=== PATIENT | male | born 1985 | race Two or more races ===

== ENCOUNTER 2016-11-14 23:48 | Inpatient (IN) | payer MEDICAID ==
[~2016-11-14] VITALS: Ht 182.9 cm; Wt 141.2 kg
[2016-11-14 04:00] VITALS: BP 117/53
[2016-11-15] VITALS (8 sets, daily range): BP systolic 100–149; BP diastolic 49–89
[2016-11-15] MEDS ORDERED: CEFTRIAXONE 2 G in IV DEXTROSE 5% 100 ML IV ONE (00:15)
[2016-11-15] MEDS ORDERED: VANCOMYCIN IV 1,000 MG in IV DEXTROSE 5% 250 ML IV ONE (00:15)
[2016-11-15] MEDS ORDERED: IV NORMAL SALINE 1000 ML BAG IV ONE (00:15)
[2016-11-15] MEDS ORDERED: DEXAMETHASONE SOD PHOSPHATE 4 MG INJ IV ONE (00:15)
--- NOTE | 2016-11-15 00:15 | NUR ---
PT WALKED INTO ER AND BEFORE HE CAN GET TO TRIAGE CHAIR,S FAINTED, HELPED TO A WHEELCHAIR AND ROOM. V/S STABLE... PT IS ALERT, ORIENTED X 4, NO RESP DISTRESS NOTED OR REPORTED UPON ASSESSMENT... MD AT BEDSIDE...
[2016-11-15] MEDS ORDERED: CEFTRIAXONE 1 G VIAL ONE (00:30)
[2016-11-15] MEDS ORDERED: DEXAMETHASONE SOD PHOSPHATE 10 MG INJ ONE (00:30)
[2016-11-15] MEDS ORDERED: AMOX-430 PO (00:32)
[2016-11-15 00:44] LABS: BASOPHILS % (AUTO) 0.2 % (0.0-2.0); EOSINOPHILS % (AUTO) 0.1 % (0.0-7.0); HEMATOCRIT 43.2 % (40-50); HEMOGLOBIN 15.3 G/DL (14.0-18.0); LYMPHOCYTES # (AUTO) 1.3 K/UL (0.8-4.8); LYMPHOCYTES % (AUTO) 9.1 % (20.5-51.5); MEAN CORPUSCULAR HEMOGLOBIN 29.8 UUG (27.0-31.0); MEAN CORPUSCULAR HGB CONC 35 g/dL (32.0-37.0); MEAN CORPUSCULAR VOLUME 84.5 FL (82.0-92.0); MONOCYTES % (AUTO) 6.7 % (0.0-11.0); NEUTROPHILS # (AUTO) 12.3 K/UL (1.8-8.9); NEUTROPHILS % (AUTO) 83.9 % (38.5-71.5); PLATELET COUNT (AUTO) 193 K/UL (150-450); RED BLOOD CELL COUNT(AUTO) 5.11 MIL/UL (4.7-6.1); RED CELL DISTRIBUTION WIDTH 12.2 % (11.5-14.5); WHITE BLOOD COUNT (AUTO) 14.6 K/UL (4.0-11.2)
[2016-11-15 00:49] LABS: ALBUMIN 3.6 g/dL (3.4-5.0); BILIRUBIN,DIRECT 0.1 mg/dL (0.0-0.2); BILIRUBIN,TOTAL 0.8 mg/dL (0.2-1.0); CALCIUM 8.7 mg/dL (8.5-10.1); CREATININE 1.2 mg/dL (0.6-1.3); POTASSIUM 3.9 mmol/L (3.5-5.1); TOTAL PROTEIN, SERUM 8.5 g/dL (6.4-8.2)
[2016-11-15 00:51] LABS: LACTIC ACID 1.3 mmol/L (0.4-2.0); TROPONIN I < 0.017 ng/mL (0.00-0.056)
[2016-11-15] MEDS ORDERED: MORPHINE SULFATE 4 MG/1 ML DISP.SYRIN IV ONE (01:00)
[2016-11-15] MEDS ORDERED: ONDANSETRON IV *ER 4 MG/2 ML VIAL IV ONE (01:00)
[2016-11-15] MEDS ORDERED: MORPHINE SULFATE 4 MG/1 ML DISP.SYRIN ONE (01:01)
[2016-11-15] MEDS ORDERED: ONDANSETRON 4 MG/2 ML VIAL ONE ×2 (01:02→02:33)
[2016-11-15] MEDS ORDERED: VANCOMYCIN IV 200 ML ONE (01:02)
--- NOTE | 2016-11-15 01:30 | NUR ---
nurse accompanied pt to radiology dept for chest x-ray, and CT of head, pt tolerated transfer... no resp distress noted or reported prior to, during or after procedure...
[2016-11-15 02:18] LABS: *BILIRUBIN,URIN NEGATIVE (NEGATIVE); *BLOOD, URINE NEGATIVE (NEGATIVE); *CLARITY,URINE CLEAR (CLEAR); *COLOR,URINE YELLOW (YELLOW); *KETONES,URINE TRACE (NEGATIVE); *PROTEIN,URINE 1+ (NEGATIVE); LEUKOCYTE ESTERASE ,URINE NEGATIVE (NEGATIVE); NITRITE, URINE NEGATIVE (NEGATIVE); UGLUCOSE NEGATIVE (NEGATIVE)
[2016-11-15 02:27] LABS: BACTERIA,URINE FEW /HPF (NONE SEEN); RBC,URINE NONE SEEN /HPF (0-3); SQUAMOUS EPITHELIAL CELL,UR FEW /HPF (NONE SEEN); WBC,URINE NONE SEEN /HPF (0-3)
[2016-11-15] MEDS ORDERED: ONDANSETRON 4 MG/2 ML VIAL IV PRN (02:30)
[2016-11-15] MEDS ORDERED: ACETAMINOPHEN 325 MG TABLET PO PRN (02:30)
[2016-11-15] MEDS ORDERED: MORPHINE SULFATE 2 MG/1 ML DISP.SYRIN IV PRN (02:30)
[2016-11-15] MEDS ORDERED: CEFTRIAXONE 2 G in IV DEXTROSE 5% 100 ML IV SCH (02:30)
[2016-11-15] MEDS ORDERED: ENOXAPARIN SODIUM 40 MG/0.4 ML DISP.SYRIN SQ SCH (02:30)
[2016-11-15] MEDS ORDERED: ACETAMINOPHEN 650 MG SUPP.RECT RC PRN (02:30)
[2016-11-15] MEDS ORDERED: Z GUARD REMEDY PASTE 57 GM TUBE TOP PRN (02:30)
[2016-11-15] MEDS ORDERED: VANCOMYCIN IV 1,500 MG in IV DEXTROSE 5% 500 ML IV SCH (02:30)
[2016-11-15] MEDS ORDERED: HYDROMORPHONE 1 MG/1 ML DISP.SYRIN ONE (02:33)
--- NOTE | 2016-11-15 02:53 | NUR ---
Received report from TERA Marin
--- NOTE | 2016-11-15 03:20 | NUR ---
Pt. admitted to MED SURG , under care of Dr. Becerril, Belongs List completed, pt is alert, oriented x 4, no resp distress noted or reported upon transfer assessment... pt transferred via gurney...
--- NOTE | 2016-11-15 03:41 | NUR ---
Received patient from ER via gurcelestino, pt is AOX3 ambulatory per pt. Accompanied by his friend. Assessment done. Lungs CTA, abd (+) bowel sounds. Pt moves upper and lower extremeties with no problem. Pt came to ER for fever, general malaise, headache. 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 No exposure with crowds as stated.Pt moves his neck with no problem.He moves his neck side to side w/ no problem. Complains of headache 02/15.Non radiating, diaphoretic
[2016-11-15] MEDS ORDERED: ENOXAPARIN SODIUM 40 MG/0.4 ML DISP.SYRIN SQ ONE (05:20)
[2016-11-15] MEDS ORDERED: DEXAMETHASONE SOD PHOSPHATE 4 MG INJ ONE (05:59)
[2016-11-15] MEDS ORDERED: ACETAMINOPHEN 325 MG TABLET ONE (05:59)
[2016-11-15] MEDS: DEXAMETHASONE SOD PHOSPHATE 4 MG INJ IV SCH ×3 (06:00→18:08)
--- NOTE | 2016-11-15 07:00 | NUR ---
Report to TERA Davis. Pt is sleeping, desats when he sleeps on his side. VS stable , HR is high 90's and low 100's.
--- NOTE | 2016-11-15 07:30 | NUR ---
RECIEVED PT LYING IN BED SOUND ASLEEP BUT AROUSABLE TO CALL. PT IS SWEATY BUT DENIES ANY DISCOMFORTS. VSS. IVF INFUSING WELL ON THE LEFT FA. TEM-98.1F. UNDERSTANDS VERY LITTLE CROATIAN. NPO.
[2016-11-15] MEDS: IV NS 1000 ML 1,000 ML IV PRN ×2 (07:38→12:10)
--- NOTE | 2016-11-15 08:30 | NUR ---
SPOKEN WITH DR NIELSEN REGARDING PT STATUS OF ADMISSION. PT CAN BE TRANSFERRED TO TELEMETRY WITH SAME ORDERS.
[2016-11-15] MEDS: PANTOPRAZOLE SODIUM 40 MG VIAL IV SCH (08:34)
[2016-11-15] MEDS: VANCOMYCIN IV 2,000 MG in IV DEXTROSE 5% 500 ML IV SCH ×2 (08:35→18:16)
--- NOTE | 2016-11-15 10:27 | NUR ---
Clinical Pharmacy Note: Vancomycin Dosing per Pharmacy Subjective: Vancomycin IV to start on this 31 yo male patient for meningitis. Patient received vancomycin 1gm IVPB x1 in ED today at 0100 Objective: BUN 12/Scr 1.2 WBC 14.6 Temperature 98.9 ht 6' wt 321 lb Assessment/Plan: Will start vancomycin 2000mg IVPB Q10hr for a predicted vancomycin steady state trough level of 16.5 mcg/ml. First dose is due today at 0900. Will draw a vancomycin trough level prior to the 4th dose of vancomycin (not ordered yet). Will monitor renal function and adjust vancomycin dose, if needed, should renal function change significantly. Will follow daily.
[2016-11-15] MEDS ORDERED: ACYCLOVIR IV SCH (11:15)
[2016-11-15] MEDS ORDERED: DEXTROSE 5% IV SCH (11:15)
[2016-11-15] MEDS ORDERED: AMPICILLIN IV 2 G in IV NORMAL SALINE 100 ML IV SCH (12:00)
--- NOTE | 2016-11-15 12:00 | NUR ---
VANCOMYCIN IVPB LATE INFUSED DUE TO PIGGYBACK UNOPENED AND FINISHED BY 1500. ENDORSED THE SITUATION TO DOMINIQUE HALEY.
[2016-11-15] MEDS: FLUCONAZOLE 400MG /NS 200ML IV 400 MG in PREMIXED 1 EACH IV SCH (12:39)
[2016-11-15] MEDS: ACYCLOVIR IV SCH ×2 (12:40→21:25)
[2016-11-15] MEDS: DEXTROSE 5% IV SCH ×2 (12:40→21:25)
[2016-11-15 14:16] LABS: HIV-1 p24 ANTIGEN NON REACTIVE (NONREACTIVE); HIV-1/2 ANTIBODY NON REACTIVE (NONREACTIVE)
--- NOTE | 2016-11-15 14:20 | NUR ---
SBAR REPORT RECEIVED FROM ANDRES/TERA. PATIENT WAS TRANSFERRED FROM CCU TO ROOM 228. UNDER MEDICAL LABORATORY SPECIALIST. FAMILY MEMBER AT BEDSIDE. NO S/S OF ACUTE DISTRESS. DENIES OF ANY PAIN.
--- NOTE | 2016-11-15 14:30 | NUR ---
TRANSFERRED TO 2ND FLOOR, PT OPTED TO WALK IONSTEAD OF A WALKER. LATEST TEM IS 97.5F. REPORT GIVEN TO DOMINIQUE HALEY.
[2016-11-15 16:02] LABS: *MONOTEST NEGATIVE (NEGATIVE)
--- NOTE | 2016-11-15 17:57 | NUR ---
Patient eating dinner. Family at bedside.Updated with plan of care. No s/s of distress noted
--- NOTE | 2016-11-15 19:30 | NUR ---
RESTING IN BED COMFORTABLY, FARSI SPEAKING. NO ACUTE DISTRESS NOTED. SINUS RHYTHM ON MONITOR. NEEDS ATTENDED. CALL LIGHT WITHIN REACH. WILL CONTINUE TO MONITOR
[2016-11-16 00:10] VITALS: BP 109/66
[2016-11-16] MEDS: DEXAMETHASONE SOD PHOSPHATE 4 MG INJ IV SCH ×4 (00:22→18:37)
[2016-11-16] MEDS ORDERED: CEFTRIAXONE 2 G in IV DEXTROSE 5% 100 ML IV SCH (00:30)
[2016-11-16] MEDS: DEXTROSE 5% IV SCH ×3 (03:48→19:48)
[2016-11-16] MEDS: ACYCLOVIR IV SCH ×3 (03:48→19:48)
[2016-11-16 04:00] VITALS: BP 108/62
[2016-11-16] MEDS: VANCOMYCIN IV 2,000 MG in IV DEXTROSE 5% 500 ML IV SCH ×3 (05:10→16:10)
--- NOTE | 2016-11-16 06:37 | NUR ---
SLEPT INTERMITTENTLY DURING THE SHIFT. NO ACUTE DISTRESS NOTED. ALL DUE MEDS GIVEN ORDERED. NEEDS ATTENDED. KEPT COMFORTABLE AT ALL TIMES. CALL LIGHT WITHIN REACH
[2016-11-16 06:47] LABS: CALCIUM 8.1 mg/dL (8.5-10.1); CREATININE 1.1 mg/dL (0.6-1.3); PHOSPHOROUS 2.6 mg/dL (2.5-4.9)
[2016-11-16 06:55] LABS: THYROID STIMULATING HORMONE 0.146 mIU/mL (0.358-3.740)
[2016-11-16 06:57] LABS: EOSINOPHILS % (AUTO) 0.2 % (0.0-7.0); HEMATOCRIT 37.3 % (40-50); HEMOGLOBIN 12.9 G/DL (14.0-18.0); LYMPHOCYTES % (AUTO) 5.7 % (20.5-51.5); MEAN CORPUSCULAR HEMOGLOBIN 29.3 UUG (27.0-31.0); MEAN CORPUSCULAR HGB CONC 35 g/dL (32.0-37.0); MEAN CORPUSCULAR VOLUME 85.1 FL (82.0-92.0); MONOCYTES # (AUTO) 0.6 K/UL (0.1-1.30); MONOCYTES % (AUTO) 3.1 % (0.0-11.0); NEUTROPHILS # (AUTO) 16.5 K/UL (1.8-8.9); PLATELET COUNT (AUTO) 189 K/UL (150-450); RED BLOOD CELL COUNT(AUTO) 4.38 MIL/UL (4.7-6.1); WHITE BLOOD COUNT (AUTO) 18.1 K/UL (4.0-11.2)
--- NOTE | 2016-11-16 07:23 | NUR ---
GLUCOSE RESULT [address] SANTAMARIA. NO NEW ORDERS AT THIS TIME
[2016-11-16] MEDS: PANTOPRAZOLE SODIUM 40 MG VIAL IV SCH (08:35)
--- NOTE | 2016-11-16 08:40 | NUR ---
USED BLUE PHONE, DENTAL AIDE MAKSIM ID# [id number], WENT OVER PT MEDICATIONS WITH PHARMACIST BERTHA AT BEDSIDE, ASSESSED PT PAIN LEVEL AND PAIN GOAL, ASKED PT IF HAD ANY QUESTION, PT JUST WANTED TO KNOW WHEN WILL BE DISCHARGED PER DENTAL AIDE PT FEELING MUCH BETTER AND WANTS TO LEAVE TODAY, EXPLAINED TO PT THAT THE DOCTOR MUST SEE THE PATIENT AND DECIDE IF PT WILL BE DISCHARGED. PT VERBALIZED UNDERSTANDING, AGREED TO TAKE MEDICATIONS, ALL SAFETY AND COMFORT MEASURES ATTENDED TO, DROPLET PRECAUTIONS MAINTAINED, CALL LIGHT IN REACH
[2016-11-16] MEDS ORDERED: ENOXAPARIN SODIUM 40 MG/0.4 ML DISP.SYRIN SQ SCH (09:00)
[2016-11-16] MEDS: CEFTRIAXONE 2 G in IV DEXTROSE 5% 100 ML IV SCH ×2 (09:13→21:02)
[2016-11-16 11:15] VITALS: BP 114/73
[2016-11-16] MEDS: FLUCONAZOLE 400MG /NS 200ML IV 400 MG in PREMIXED 1 EACH IV SCH (11:45)
[2016-11-16 12:07] LABS: *EBV AB VCA IGG >600.0 U/mL (0.0-17.9); *EBV AB VCA IGM <36.0 U/mL (0.0-35.9); *EBV NUCLEAR AG AB 58.8 U/mL (0.0-17.9)
--- NOTE | 2016-11-16 14:20 | NUR ---
ABX GIVEN LATE DUE TO SO MANY DUE AROUND SAME TIME
[2016-11-16 15:08] VITALS: BP 115/67
--- NOTE | 2016-11-16 15:23 | NUR ---
Clinical Pharmacy Note: Vancomycin Dosing per Pharmacy Subjective: Vancomycin IV to continue on this 31 yo male patient for meningitis. Patient received vancomycin 1gm IVPB x1 in ED 11/15 at 0100 Objective: BUN 13/Scr 1.1 WBC 18.1 Temperature 98.3 ht 6' wt 321 lb Trough: 7.8 (today at 1420) Assessment/Plan: Due to pt weight, low trough may indicate incomplete distribution of vanco, thus regimen changed to 2gm q7hrs. Expected trough is 13.8, however will expect to be higher d/t slower distribution. Will draw a vancomycin trough level prior to the 4th dose of vancomycin (due tomorrow 11/17 @1200). Will monitor renal function and adjust vancomycin dose, if needed, should renal function change significantly. Will follow daily.
[2016-11-16 20:00] VITALS: BP 130/79
--- NOTE | 2016-11-16 20:00 | NUR ---
PT'S SITTING ON BED,DENIED OF PAIN OR ANY DISCOMFORT,FARSI SPEAKER BUT PT'S ABLE TO UNDERSTAND SOME SPANISH;PT'S COOPERATIVE W/ASSISTANCE AND STATED THAT HE WANTED TO CHANGE WATER;NEED'S MET.MAINTAINED IVF ORDER.KEPT CALL-LIGHT WITHIN REACH.
[2016-11-16] MEDS: LACTOBACILLUS RHAMNOSUS GG 1 EACH CAPSULE PO SCH (21:02)
--- NOTE | 2016-11-16 21:19 | NUR ---
CAME TO SEE PT,NEW ORDER'S GIVEN FOR X-RAY L-S SPINE PER X-RAY TECH WENT TO PT'S ROOM AND EXPLAINED TO PT,PT SATED TO HIM"GET OUT OF HERE",REFUSED TO GET IT AT THIS TIME.
[2016-11-17] MEDS: IV NS 1000 ML 1,000 ML IV PRN (00:24)
[2016-11-17 04:00] VITALS: BP 137/76
[2016-11-17 04:40] VITALS: BP 137/76
--- NOTE | 2016-11-17 06:30 | NUR ---
PT'S COMFORTABLE ON BED,C/O BACK PAIN ONLY WHILE MOVING;REFUSED TO GET ANY PAIN MEDICINE.KEPT COMFORT.MAINTAINED IVF ORDER.NO DISTRESS NOTED IN THE SHIFT.NO N/V WAS SEEN IN THE SHIFT NOTED.
[2016-11-17] MEDS: LACTOBACILLUS RHAMNOSUS GG 1 EACH CAPSULE PO SCH (08:34)
[2016-11-17] MEDS: PANTOPRAZOLE SODIUM 40 MG VIAL IV SCH (08:34)
[2016-11-17] MEDS: CEFTRIAXONE 2 G in IV DEXTROSE 5% 100 ML IV SCH (08:42)
--- NOTE | 2016-11-17 08:54 | NUR ---
PT AWAKE IN BED, IN NO ACUTE DISTRESS, NO COMPLAINTS OF PAIN. ASKING WHEN GOING HOME, REMINDED PT THAT WE NEED TO WAIT FOR THE DOCTOR AND PT SHOOK HEAD YES. ALL DUE MEDICATIONS GIVEN AT THIS TIME, CALL LIGHT IN REACH, WILL CONTINUE TO MONITOR, DROPLET PRECAUTIONS MAINTAINED.
--- NOTE | 2016-11-17 10:25 | NUR ---
JAGJIT MAKING ROUNDS AND NOTICED PT IS DRESSED AND REMOVED OWN IV. WENT TO PTS ROOM AND PT WANTING TO LEAVE AMA. NO REDNESS OR IRRITATION NOTED AT IV SITE. EXPLAINED TO PATIENT THAT MUST STAY IN ROOM DUE TO POSSIBLE INFECTION AND ENCOURAGED PT TO WAIT UNTIL DR NIELSEN CAN COME SEE PT. PT AGREED TO WAIT IN ROOM. MORALES MADE AWARE
[2016-11-17 11:06] LABS: *WEST NILE VIRUS, IgM, SERUM Negative (Negative); CRYPTOCOCCUS AB, SERUM Negative (Negative)
--- NOTE | 2016-11-17 11:13 | NUR ---
DR NIELSEN SAW PT ENCOURAGED PT TO STAY AND GET LUMBAR PUNCTURE HOWEVER PT REFUSING. DR NIELSEN EXPLAINED THE RISKS OF LEAVING NOT ONLY TO THE PATIENT BUT TO EVERYONE ELSE WELL. PT IS REFUSING TO STAY, STATING FEELS SO MUCH BETTER AND WANTS TO LEAVE NOW. PT TOOK ALL BELONGINGS, AMA FORM WAS SIGNED AND ID BAND REMOVED. RISK INCIDENT REPORT FILLED OUT WELL
[2016-11-18] MEDS ORDERED: PANTOPRAZOLE SODIUM 40 MG TABLET.DR PO SCH (07:00)
== END 2016-11-17 11:08 | disposition left against medical advice (07) | DRG 113 ==
LOC: ER 23:56 → CCU 11-15 00:40 → MERGE 11-15 00:40 → TELE 11-15 14:33 → MED 11-16 11:02
PROC: 009U3ZX Drainage of Spinal Canal, Percutaneous Approach, Diagnostic (ICD-10-PCS; principal; 2016-11-15)
DX: J02.8 Acute pharyngitis due to other specified organisms (principal); E44.1 Mild protein-calorie malnutrition; Z68.41 Body mass index [BMI] 40.0-44.9, adult; D64.9 Anemia, unspecified; E66.9 Obesity, unspecified; J32.2 Chronic ethmoidal sinusitis; R73.9 Hyperglycemia, unspecified; B96.89 Other specified bacterial agents as the cause of diseases classified elsewhere; J98.11 Atelectasis
CPT/HCPCS: 36415; 70030-TC; 70450; 71010; 83605; 83735; 84100; 84443; 85025; 85730; 86215; 86308; 86403; 86592; 86788; 86789; 87040; 87070; 87086; 87328; 87536; 87806; 93005; A4663; C9113; J0133; J0290; J0696; J1100; J1170; J1450; J1650; J2270; J2405; J3370; J3490; J7030; J7050; J7060

== ENCOUNTER 2016-11-20 16:26 | Emergency (ER) | payer MEDICAID ==
[~2016-11-20] VITALS: Ht 185.4 cm; Wt 140.6 kg
[2016-11-20 17:04] LABS: *BILIRUBIN,URIN NEGATIVE (NEGATIVE); *BLOOD, URINE NEGATIVE (NEGATIVE); *CLARITY,URINE CLEAR (CLEAR); *COLOR,URINE YELLOW (YELLOW); *KETONES,URINE NEGATIVE (NEGATIVE); *PROTEIN,URINE 1+ (NEGATIVE); *UROBILINOGEN,URINE 0.2 E.U./dl (NORMAL); LEUKOCYTE ESTERASE ,URINE NEGATIVE (NEGATIVE); NITRITE, URINE NEGATIVE (NEGATIVE); PH,URINE 5.5 (5.0-8.0); UGLUCOSE TRACE (NEGATIVE)
[2016-11-20 17:07] LABS: BACTERIA,URINE NONE SEEN /HPF (NONE SEEN); RBC,URINE 0-3 /HPF (0-3); SQUAMOUS EPITHELIAL CELL,UR NONE SEEN /HPF (NONE SEEN); WBC,URINE 0-3 /HPF (0-3)
[2016-11-20 17:54] LABS: CALCIUM 8.9 mg/dL (8.5-10.1); CREATININE 1.2 mg/dL (0.6-1.3); POTASSIUM 4.2 mmol/L (3.5-5.1)
[2016-11-20 17:57] LABS: BASOPHILS % (AUTO) 0.3 % (0.0-2.0); EOSINOPHILS # (AUTO) 0.1 K/uL (0.0-0.7); EOSINOPHILS % (AUTO) 1.2 % (0.0-7.0); HEMATOCRIT 42.8 % (40-50); HEMOGLOBIN 15.1 G/DL (14.0-18.0); LYMPHOCYTES # (AUTO) 2.4 K/UL (0.8-4.8); LYMPHOCYTES % (AUTO) 23.2 % (20.5-51.5); MEAN CORPUSCULAR HEMOGLOBIN 29.8 UUG (27.0-31.0); MEAN CORPUSCULAR HGB CONC 35 g/dL (32.0-37.0); MEAN CORPUSCULAR VOLUME 84.1 FL (82.0-92.0); MONOCYTES # (AUTO) 0.6 K/UL (0.1-1.30); MONOCYTES % (AUTO) 5.7 % (0.0-11.0); NEUTROPHILS # (AUTO) 7.2 K/UL (1.8-8.9); NEUTROPHILS % (AUTO) 69.6 % (38.5-71.5); PLATELET COUNT (AUTO) 225 K/UL (150-450); RED BLOOD CELL COUNT(AUTO) 5.09 MIL/UL (4.7-6.1); RED CELL DISTRIBUTION WIDTH 12.3 % (11.5-14.5); WHITE BLOOD COUNT (AUTO) 10.3 K/UL (4.0-11.2)
[2016-11-20 17:59] LABS: ALBUMIN 3.3 g/dL (3.4-5.0); BILIRUBIN,DIRECT 0.1 mg/dL (0.0-0.2); BILIRUBIN,TOTAL 0.3 mg/dL (0.2-1.0); TOTAL PROTEIN, SERUM 7.6 g/dL (6.4-8.2)
--- NOTE | 2016-11-20 18:16 | NUR ---
Patient discharged to home in stable conditon. Written and verbal after care instructions given. Patient verbalizes understanding of instructions.PT WALKS IN STEADY GAIT.
[2016-11-20 18:17] VITALS: BP 109/91
== END 2016-11-20 18:19 | disposition home or self-care (01) ==
LOC: EDBD 16:30 → ER 16:30
DX: R10.9 Unspecified abdominal pain (principal); E11.9 Type 2 diabetes mellitus without complications; I10 Essential (primary) hypertension; E78.5 Hyperlipidemia, unspecified; F10.20 Alcohol dependence, uncomplicated; R35.0 Frequency of micturition
CPT/HCPCS: 36415; 74176; 80048; 80076; 81001; 83690; 85025; 99285; A4663

== ENCOUNTER 2017-04-15 21:31 | Emergency (ER) | payer MEDICAID, OTHER ==
[~2017-04-15] VITALS: Ht 188 cm; Wt 140.6 kg
--- NOTE | 2017-04-15 21:58 | NUR ---
PATIENT WALKED INTO ER C/O LEFT FLANK PAIN WITH DIFFICULTY URINATING SINCE THIS AM. DR DOWNING INTO EVAL PATIENT
[2017-04-15 22:12] LABS: *BILIRUBIN,URIN NEGATIVE (NEGATIVE); *BLOOD, URINE Trace-intact (NEGATIVE); *CLARITY,URINE CLEAR (CLEAR); *COLOR,URINE YELLOW (YELLOW); *KETONES,URINE TRACE (NEGATIVE); *PROTEIN,URINE 2+ (NEGATIVE); *UROBILINOGEN,URINE 0.2 E.U./dl (NORMAL); LEUKOCYTE ESTERASE ,URINE NEGATIVE (NEGATIVE); NITRITE, URINE NEGATIVE (NEGATIVE); PH,URINE 5.5 (5.0-8.0); UGLUCOSE NEGATIVE (NEGATIVE)
[2017-04-15 22:15] LABS: BACTERIA,URINE FEW /HPF (NONE SEEN); RBC,URINE 0-3 /HPF (0-3); SQUAMOUS EPITHELIAL CELL,UR FEW /HPF (NONE SEEN); WBC,URINE 0-3 /HPF (0-3)
--- NOTE | 2017-04-15 23:10 | NUR ---
Note dana in ED - 04/15/17 at 2346 by [email or web address] PATIENT IN ROOM WITH FATHER AT BEDSIDE. STATES "I FEEL ALOT BETTER NOW." NO WHEEZING NOTED. СВЕТЛАНА HAMMOND,CP
[2017-04-15 23:58] VITALS: BP 150/92
--- NOTE | 2017-04-15 23:58 | NUR ---
Patient discharged to home in stable conditon WITH FRIEND TAKING PATIENT HOME. Written and verbal after care instructions given. Patient verbalizes understanding of instructions. WALKED OUT OF ER WITH NO DISTRESS NOTED
== END 2017-04-15 23:59 | disposition home or self-care (01) ==
LOC: ER 21:35
DX: N39.0 Urinary tract infection, site not specified (principal); E11.9 Type 2 diabetes mellitus without complications
CPT/HCPCS: A4663

== ENCOUNTER 2017-05-15 08:07 | Inpatient (IN) | payer MEDICAID, OTHER ==
[~2017-05-15] VITALS: Ht 188 cm; Wt 140.6 kg
[2017-05-15] MEDS ORDERED: ONDANSETRON 4 MG/2 ML VIAL IV ONE (08:15)
[2017-05-15] MEDS ORDERED: FAMOTIDINE IV 40 MG in IV DEXTROSE 5% 50 ML IV ONE (08:15)
[2017-05-15] MEDS ORDERED: IV NORMAL SALINE 1000 ML BAG IV ONE ×2 (08:15→10:30)
[2017-05-15] MEDS ORDERED: HYDROMORPHONE 1 MG/1 ML DISP.SYRIN IV ONE ×2 (08:15→10:30)
[2017-05-15] MEDS ORDERED: HYDROMORPHONE 1 MG/1 ML DISP.SYRIN ONE ×2 (08:26→10:40)
[2017-05-15] MEDS ORDERED: ONDANSETRON 4 MG/2 ML VIAL ONE (08:29)
[2017-05-15] MEDS ORDERED: HYDROMORPHONE 2 MG/1 ML DISP.SYRIN ONE (08:29)
[2017-05-15] MEDS ORDERED: FAMOTIDINE. 20 MG/2 ML VIAL IV ONE (08:33)
[2017-05-15 08:58] LABS: BASOPHILS % (AUTO) 0.5 % (0.0-2.0); EOSINOPHILS % (AUTO) 1.3 % (0.0-7.0); HEMATOCRIT 38.4 % (36.7-47.1); HEMOGLOBIN 13.6 g/dL (12.5-16.3); LYMPHOCYTES % (AUTO) 27.1 % (20.5-51.5); MEAN CORPUSCULAR HEMOGLOBIN 28.9 uug (23.8-33.4); MEAN CORPUSCULAR HGB CONC 35 g/dL (32.5-36.3); MEAN CORPUSCULAR VOLUME 81.9 fL (73.0-96.2); MONOCYTES % (AUTO) 6.4 % (0.0-11.0); NEUTROPHILS % (AUTO) 64.7 % (38.5-71.5); PLATELET COUNT (AUTO) 192 K/uL (152-348); RED BLOOD CELL COUNT(AUTO) 4.69 MIL/uL (4.06-5.63)
[2017-05-15 08:59] LABS: EOSINOPHILS # (AUTO) 0.1 K/uL (0.0-0.7); LYMPHOCYTES # (AUTO) 2.9 K/uL (20.0-40.0); MONOCYTES # (AUTO) 0.7 K/uL (2.0-10.0); NEUTROPHILS # (AUTO) 6.9 K/uL (1.8-8.9)
[2017-05-15 09:03] LABS: WHITE BLOOD COUNT (AUTO) 10.7 K/uL (3.6-10.2)
--- NOTE | 2017-05-15 09:18 | NUR ---
Patient is resting comfortably in bed with eyes closed, NAD, pending results & disposition
--- NOTE | 2017-05-15 09:44 | NUR ---
Patient is seen removing the nasal cannula, spo2=92%-94% room air while sleeping.
[2017-05-15 10:03] LABS: POTASSIUM 3.5 mmol/L (3.5-5.1)
[2017-05-15 10:04] LABS: BILIRUBIN,DIRECT 0.1 mg/dL (0.0-0.2); BILIRUBIN,TOTAL 0.8 mg/dL (0.1-1.0)
[2017-05-15 10:05] LABS: TOTAL PROTEIN, SERUM 8.6 g/dL (6.4-8.2)
[2017-05-15] MEDS ORDERED: IV NS 1000 ML 1,000 ML IV PRN (12:02)
[2017-05-15 12:11] VITALS: BP 138/90
[2017-05-15] MEDS ORDERED: MORPHINE SULFATE 2 MG/1 ML DISP.SYRIN IV PRN (12:15)
[2017-05-15] MEDS ORDERED: ONDANSETRON 4 MG/2 ML VIAL IV PRN (12:15)
[2017-05-15] MEDS ORDERED: ZOLPIDEM 5 MG TABLET PO PRN (12:15)
[2017-05-15] MEDS ORDERED: MAGNESIUM HYDROXIDE 30 ML LIQUID UDC PO PRN (12:15)
[2017-05-15] MEDS ORDERED: HYDROCODONE/APAP 5-325MG TABLET PO PRN (12:15)
[2017-05-15] MEDS ORDERED: ACETAMINOPHEN 325 MG TABLET PO PRN (12:15)
[2017-05-15] MEDS ORDERED: Z GUARD REMEDY PASTE 57 GM TUBE TOP PRN (12:15)
[2017-05-15] MEDS ORDERED: HYDROMORPHONE 1 MG/1 ML DISP.SYRIN IV PRN ×2 (12:30→13:30)
--- NOTE | 2017-05-15 12:57 | NUR ---
Admitted to Med-Surg unit accompanied by ER staff per manolo. Awake, alert x4. No in apparent distress, With Intact G#20 in Right Fore Arm. With abdominal pain over left upper quadrant rated as 10/10. Screaming and Irritable. PRN Dilaudid given. Patient encouraged to call. Oriented on unit and equipment.
[2017-05-15 15:35] VITALS: BP 140/89
--- NOTE | 2017-05-15 15:36 | NUR ---
For transfer to [facility], patient acknowledgement form signed by patient. Patient informed and understands the reason for transfer. Vital signs stable. Alert and awake x4. Not in any from of distress.
--- NOTE | 2017-05-15 15:53 | NUR ---
Pain over LUQ of abdomen radiating to back rated as 9/10. PRN Dilaudid given.
--- NOTE | 2017-05-15 16:30 | NUR ---
Report given to Raegan Tejada /TERA. Transferred to [facility] Room 308A. Not in any form of distress. Awake, alert x4. Still with left upper abdominal rated as as 9/10. BP 136/86. IA-117. T- 99.4 Resp Rate-21 Spo2-95% at 2LPM
[2017-05-16] MEDS ORDERED: PANTOPRAZOLE SODIUM 40 MG VIAL IV SCH (09:00)
== END 2017-05-15 16:35 | disposition short-term general hospital (02) | DRG 282 ==
LOC: ER 08:07 → MED 11:03
PROVIDERS: ADMIT Family Medicine; ATTEND Family Medicine
DX: K85.90 Acute pancreatitis without necrosis or infection, unspecified (principal); K76.0 Fatty (change of) liver, not elsewhere classified; I10 Essential (primary) hypertension; F17.210 Nicotine dependence, cigarettes, uncomplicated; F10.10 Alcohol abuse, uncomplicated; E87.1 Hypo-osmolality and hyponatremia; E78.5 Hyperlipidemia, unspecified; E66.9 Obesity, unspecified; R73.9 Hyperglycemia, unspecified; Z68.39 Body mass index [BMI] 39.0-39.9, adult
CPT/HCPCS: 36415; 70030-TC; 71010; 83690; 85025; 85730; 86850; 86900; 86901; 93005; A4663; J1170; J2405; J3490; J7030

== ENCOUNTER 2017-05-23 23:20 | Inpatient (IN) | payer MEDICAID ==
[~2017-05-23] VITALS: Ht 188 cm; Wt 120.2 kg
[2017-05-23] MEDS ORDERED: IV NORMAL SALINE 1000 ML BAG IV ONE (23:45)
[2017-05-23] MEDS ORDERED: MVI-12 10 ML IV ONE (23:45)
[2017-05-23] MEDS ORDERED: ONDANSETRON IV *ER 4 MG/2 ML VIAL IV ONE (23:45)
[2017-05-24 00:24] LABS: BASOPHILS % (AUTO) 0.1 % (0.0-2.0); EOSINOPHILS # (AUTO) 0.1 K/uL (0.0-0.7); LYMPHOCYTES # (AUTO) 1.8 K/UL (0.8-4.8); MONOCYTES # (AUTO) 0.8 K/UL (0.1-1.30)
[2017-05-24 00:26] LABS: EOSINOPHILS % (AUTO) 0.8 % (0.0-7.0); HEMATOCRIT 32.3 % (40-50); LYMPHOCYTES % (AUTO) 11.6 % (20.5-51.5); MEAN CORPUSCULAR HEMOGLOBIN 27.9 UUG (27.0-31.0); MEAN CORPUSCULAR HGB CONC 34 g/dL (32.0-37.0); MEAN CORPUSCULAR VOLUME 82.1 FL (82.0-92.0); MONOCYTES % (AUTO) 4.9 % (0.0-11.0); NEUTROPHILS # (AUTO) 12.6 K/UL (1.8-8.9); NEUTROPHILS % (AUTO) 82.6 % (38.5-71.5); PLATELET COUNT (AUTO) 448 K/UL (150-450); RED BLOOD CELL COUNT(AUTO) 3.93 MIL/UL (4.7-6.1); WHITE BLOOD COUNT (AUTO) 15.3 K/UL (4.0-11.2)
[2017-05-24 00:32] LABS: CREATININE 0.9 mg/dL (0.6-1.3)
[2017-05-24] MEDS ORDERED: ONDANSETRON 4 MG/2 ML VIAL ONE (00:32)
[2017-05-24 00:34] LABS: TRIGLYCERIDES 347 MG/DL (30-150)
[2017-05-24] MEDS ORDERED: PANT40TA2 PO (00:36)
[2017-05-24] MEDS ORDERED: GEMF600T PO (00:36)
[2017-05-24] MEDS ORDERED: ACET-2154 PO (00:36)
[2017-05-24] MEDS ORDERED: INSU100V10 SQ (00:36)
[2017-05-24] MEDS ORDERED: AMYL1CAP58 PO (00:36)
[2017-05-24] MEDS ORDERED: METR500T PO (00:36)
[2017-05-24] MEDS ORDERED: HYDR-3326 PO (00:36)
[2017-05-24] MEDS ORDERED: CIPR-262 PO (00:36)
[2017-05-24] MEDS ORDERED: INSU100C4 SUBCUT (00:36)
[2017-05-24] MEDS ORDERED: METF500T4 PO (00:38)
[2017-05-24] MEDS ORDERED: AZITHROMYCIN IV 500 MG in IV DEXTROSE 5% 250 ML IV ONE (00:45)
[2017-05-24] MEDS ORDERED: LEVOFLOXACIN 500 MG/D5W 100ML PIGGYBACK IV ONE (00:45)
[2017-05-24 00:47] LABS: BILIRUBIN,DIRECT 0.5 mg/dL (0.0-0.2); TOTAL PROTEIN, SERUM 8.5 g/dL (6.4-8.2)
[2017-05-24 00:52] LABS: LIPASE 1643 U/L (73-393)
[2017-05-24] MEDS ORDERED: AZITHROMYCIN 500 MG VIAL IV ONE (00:59)
[2017-05-24] MEDS ORDERED: LEVOFLOXACIN 500 MG/D5W 100 ML ONE (01:37)
--- NOTE | 2017-05-24 02:08 | NUR ---
Patient to Radiology for CT scan via Monica french WNL, Consent signed.
[2017-05-24] MEDS ORDERED: IOHEXOL 350 100 ML INFUS..BTL ONE (02:15)
[2017-05-24] MEDS ORDERED: IV NORMAL SALINE 250 ML IV ONE (02:15)
--- NOTE | 2017-05-24 02:28 | NUR ---
Patient returned from CT, no acute distress noted.
--- NOTE | 2017-05-24 03:39 | NUR ---
Pt. admitted to TELE, under care of Chapis Morrow. Belongs List completed
[2017-05-24 03:51] LABS: *BILIRUBIN,URIN NEGATIVE (NEGATIVE); *BLOOD, URINE NEGATIVE (NEGATIVE); *CLARITY,URINE CLEAR (CLEAR); *COLOR,URINE YELLOW (YELLOW); *KETONES,URINE 1+ (NEGATIVE); *PROTEIN,URINE NEGATIVE (NEGATIVE); *UROBILINOGEN,URINE 0.2 E.U./dl (NORMAL); LEUKOCYTE ESTERASE ,URINE NEGATIVE (NEGATIVE); NITRITE, URINE NEGATIVE (NEGATIVE); UGLUCOSE 3+ (NEGATIVE)
[2017-05-24 03:55] LABS: BACTERIA,URINE FEW /HPF (NONE SEEN); RBC,URINE 0-3 /HPF (0-3); SQUAMOUS EPITHELIAL CELL,UR FEW /HPF (NONE SEEN); WBC,URINE 0-3 /HPF (0-3)
[2017-05-24 04:26] VITALS: BP 120/74
[2017-05-24] MEDS ORDERED: MORPHINE SULFATE 2 MG/1 ML DISP.SYRIN IV PRN (04:45)
[2017-05-24] MEDS ORDERED: VANCOMYCIN IV 200 ML IV ONE (04:45)
[2017-05-24] MEDS ORDERED: ACETAMINOPHEN 650 MG/20.3 ML LIQUID UDC GT PRN (04:45)
[2017-05-24] MEDS ORDERED: POTASSIUM CHLORIDE 50 ML IV SCH (04:45)
[2017-05-24] MEDS ORDERED: ACETAMINOPHEN 325 MG TABLET PO PRN (04:45)
[2017-05-24] MEDS ORDERED: MORPHINE SULFATE 4 MG/1 ML DISP.SYRIN ONE (04:53)
[2017-05-24] MEDS ORDERED: ACETAMINOPHEN 325 MG TABLET ONE (04:53)
[2017-05-24] MEDS ORDERED: DEXTROSE 50% 50 ML DISP.SYRIN IV PRN (05:00)
[2017-05-24] MEDS ORDERED: IV NS 1000 ML 1,000 ML IV PRN (05:00)
[2017-05-24] MEDS ORDERED: INSULIN REGULAR, HUMAN 300 UNIT/3 ML VIAL SQ PRN (05:00)
[2017-05-24] MEDS: METRONIDAZOLE 500 MG TABLET PO SCH ×2 (05:12→05:14)
[2017-05-24] MEDS ORDERED: METRONIDAZOLE 500 MG TABLET ONE (05:25)
[2017-05-24] MEDS ORDERED: PIPERACILLIN/TAZOBACTAM/D5W 50 ML IV ONE (05:44)
[2017-05-24 05:45] VITALS: BP 125/70
[2017-05-24] MEDS ORDERED: BLOOD SUGAR DIAGNOSTIC 1 EACH STRIP VI SCH (06:00)
[2017-05-24] MEDS ORDERED: PIPERACILLIN/TAZOBACTAM/D5W 3.375 G in PREMIXED 1 EACH IV SCH (06:00)
--- NOTE | 2017-05-24 06:00 | NUR ---
Admitted to Telemetry Dx. Sepsis, Pancreatitis. Awake alert & oriented, no SOB denies chest pain. Total bolus of 4 liters NS IV completed at 5 Am, patient tolerated. Febrile w/ temp 102. 1 F , sinus tach on the monitor. Ice pack applied. Dr. Casarez notified, received orders & carried out. Repeat blood culture x 2 was ordered. Sepsis re-assessment done. Zosyn IV started as ordered. Patient current body temp. 99.3 F. Refused morning ABG blood draw today, patient requesting for food. Instructed he's NPO status for now due to pancreatitis. Patient upset at this time. Will continue to monitor.
[2017-05-24 06:32] LABS: THYROID STIMULATING HORMONE 0.864 mIU/mL (0.358-3.740)
[2017-05-24 06:54] LABS: MAGNESIUM 1.8 mg/dL (1.8-2.4)
--- NOTE | 2017-05-24 07:00 | NUR ---
Patient refused morning accu check & morning ABG. Sinus tach on the monitor.
[2017-05-24] MEDS ORDERED: HYDROMORPHONE 2 MG/1 ML DISP.SYRIN IV PRN (08:45)
[2017-05-24] MEDS ORDERED: PANTOPRAZOLE SODIUM 40 MG TABLET.DR PO SCH (09:00)
[2017-05-24] MEDS ORDERED: FENOFIBRATE NANOCRYSTALLIZED 145 MG TABLET PO SCH (09:00)
[2017-05-24 09:12] LABS: IRON, SERUM 40 ug/dL (50-175); LACTATE DEHYDROGENASE 148 U/L (85-227)
--- NOTE | 2017-05-24 10:15 | NUR ---
PT AMBULATING IN HALLWAY, DRESSED IN CLOTHES STATES WANTS TO GO HOME. ENCOURAGED PT TO STAY AND RECEIVE TREATMENT, PT REFUSING, WANTS TO LEAVE AMA. IV REMOVED WITH NO REDNESS OR IRRITATION. AMA FORM SIGNED, JEANIE EVANS NOTIFIED
[2017-05-24] MEDS ORDERED: VANCOMYCIN IV 2,000 MG in IV DEXTROSE 5% 500 ML IV SCH (10:30)
[2017-05-24] MEDS ORDERED: METRONIDAZOLE 500 MG TABLET PO SCH (14:00)
== END 2017-05-24 10:10 | disposition left against medical advice (07) | DRG 720 ==
LOC: ER 23:23 → TELE 05-24 00:50
PROVIDERS: ADMIT Internal Medicine; ATTEND Internal Medicine
DX: A41.9 Sepsis, unspecified organism (principal); J96.01 Acute respiratory failure with hypoxia; K85.90 Acute pancreatitis without necrosis or infection, unspecified; J90 Pleural effusion, not elsewhere classified; E11.65 Type 2 diabetes mellitus with hyperglycemia; E87.1 Hypo-osmolality and hyponatremia; D68.9 Coagulation defect, unspecified; Z79.4 Long term (current) use of insulin; J98.11 Atelectasis; E87.6 Hypokalemia; E78.1 Pure hyperglyceridemia; E66.9 Obesity, unspecified; Z68.34 Body mass index [BMI] 34.0-34.9, adult; D64.9 Anemia, unspecified; F17.210 Nicotine dependence, cigarettes, uncomplicated; F10.10 Alcohol abuse, uncomplicated; Y90.9 Presence of alcohol in blood, level not specified; K76.0 Fatty (change of) liver, not elsewhere classified
CPT/HCPCS: 36415; 70030-TC; 71010; 71275; 82746; 83550; 83605; 83615; 83690; 83735; 84100; 84443; 84478; 85025; 85651; 85730; 87040; 87086; 93005; A4663; J0456; J1815; J1956; J2270; J2405; J2543; J3370; J3490; J7030; J7050; J7060; Q9967

== ENCOUNTER 2018-02-04 13:42 | Emergency (ER) | payer MEDICAID ==
[~2018-02-04] VITALS: Ht 188 cm; Wt 129.3 kg
[~2018-02-04 13:42] MED LIST: ACET-2154 PO; AMYL1CAP58 PO; CIPR-262 PO; GEMF600T PO; HYDR-3326 PO; INSU100C4 SUBCUT; INSU100V10 SQ; METF500T6 PO; METR500T PO; PANT40TA2 PO
[2018-02-04] MEDS ORDERED: MUPIROCIN 2% OINT 22 GM TUBE TP ONE (15:00)
[2018-02-04] MEDS ORDERED: SULFAMETH/TRIMETH 800/160 MG TABLET PO ONE (15:00)
[2018-02-04] MEDS ORDERED: SULFAMETH/TRIMETH 800/160 MG TABLET ONE (15:03)
[2018-02-04] MEDS ORDERED: MUPIROCIN 2% OINT 22 GM TUBE ONE (15:03)
--- NOTE | 2018-02-04 15:06 | NUR ---
Rt big toe cleaned and dressed per md order.
[2018-02-04 15:14] VITALS: BP 134/80
--- NOTE | 2018-02-04 15:15 | NUR ---
Patient discharged to home in stable conditon. Written and verbal after care instructions given. Patient verbalizes understanding of instructions.
== END 2018-02-04 15:16 | disposition home or self-care (01) ==
LOC: ER 13:45
DX: S99.922A Unspecified injury of left foot, initial encounter (principal); L08.89 Other specified local infections of the skin and subcutaneous tissue; E11.9 Type 2 diabetes mellitus without complications; E78.5 Hyperlipidemia, unspecified; Z79.84 Long term (current) use of oral hypoglycemic drugs; Z79.4 Long term (current) use of insulin; W51.XXXA Accidental striking against or bumped into by another person, initial encounter; Y93.89 Activity, other specified; Y92.89 Other specified places as the place of occurrence of the external cause; Y99.8 Other external cause status
CPT/HCPCS: 73630; A4663

== ENCOUNTER 2018-07-17 14:32 | Inpatient (IN) | payer MEDICAID ==
[~2018-07-17] VITALS: Ht 188 cm; Wt 128.4 kg
[~2018-07-17 14:32] MED LIST changes: +METF-440 PO; -METF500T6 PO
[2018-07-17] MEDS ORDERED: IV NORMAL SALINE 500 ML BAG IV ONE (15:00)
[2018-07-17] MEDS ORDERED: ONDANSETRON 4 MG/2 ML VIAL IV ONE (15:00)
[2018-07-17] MEDS ORDERED: KETOROLAC TROMETHAMINE 30 MG INJ IVP ONE (15:00)
[2018-07-17] MEDS ORDERED: KETOROLAC TROMETHAMINE 30 MG INJ ONE (15:06)
[2018-07-17] MEDS ORDERED: ONDANSETRON 4 MG/2 ML VIAL ONE (15:06)
[2018-07-17 15:20] LABS: BASOPHILS # (AUTO) 0.1 K/uL (0.0-8.0); BASOPHILS % (AUTO) 0.7 % (0.0-2.0); EOSINOPHILS # (AUTO) 0.1 K/uL (0.0-0.7); EOSINOPHILS % (AUTO) 0.6 % (0.0-7.0); LYMPHOCYTES # (AUTO) 1.8 K/uL (20.0-40.0); LYMPHOCYTES % (AUTO) 17.4 % (20.5-51.5); MEAN CORPUSCULAR VOLUME 83.3 fL (73.0-96.2); MONOCYTES # (AUTO) 0.6 K/uL (2.0-10.0); MONOCYTES % (AUTO) 5.5 % (0.0-11.0); NEUTROPHILS # (AUTO) 7.9 K/uL (1.8-8.9); NEUTROPHILS % (AUTO) 75.8 % (38.5-71.5); PLATELET COUNT (AUTO) 237 K/uL (152-348); WHITE BLOOD COUNT (AUTO) 10.4 K/uL (3.6-10.2)
[2018-07-17 15:45] LABS: CARBON DIOXIDE 25 mmol/L (21-32); CHLORIDE 91 mmol/L (98-107); CREATININE 0.8 mg/dL (0.6-1.3); UREA NITROGEN, BLOOD 9 mg/dL (7-18)
[2018-07-17 15:47] LABS: GLUCOSE 321 mg/dL (74-106)
[2018-07-17 15:50] LABS: ALKALINE PHOSPHATASE 63 U/L (50-136); BILIRUBIN,DIRECT < 0.1 mg/dL (0.0-0.2); BILIRUBIN,TOTAL 0.9 mg/dL (0.2-1.0); HEMATOCRIT 45.4 % (36.7-47.1); MEAN CORPUSCULAR HEMOGLOBIN 31.2 uug (23.8-33.4); MEAN CORPUSCULAR HGB CONC 37 g/dL (32.5-36.3); TOTAL PROTEIN, SERUM 9.2 g/dL (6.4-8.2)
[2018-07-17 15:52] LABS: HEMOGLOBIN 16.9 g/dL (12.5-16.3)
[2018-07-17 15:54] LABS: LIPASE 586 U/L (73-393)
[2018-07-17 16:01] LABS: AMYLASE 42 U/L (25-115)
[2018-07-17] MEDS ORDERED: HYDROMORPHONE 1 MG/1 ML DISP.SYRIN IV ONE (16:15)
[2018-07-17] MEDS ORDERED: HYDROMORPHONE 1 MG/1 ML DISP.SYRIN ONE (16:16)
[2018-07-17] MEDS ORDERED: ONDANSETRON 4 MG/2 ML VIAL IV PRN (17:30)
[2018-07-17] MEDS ORDERED: ZOLPIDEM 5 MG TABLET PO PRN (17:30)
[2018-07-17] MEDS ORDERED: Z GUARD REMEDY PASTE 57 GM TUBE TOP PRN (17:30)
[2018-07-17 20:00] VITALS: BP 125/73
[2018-07-17 20:30] VITALS: BP 119/74
[2018-07-17 21:00] VITALS: BP 92/57
[2018-07-17] MEDS: BLOOD SUGAR DIAGNOSTIC 1 EACH STRIP VI SCH ×4 (21:02→23:41)
[2018-07-17] MEDS: INSULIN REGULAR, HUMAN 100 UNIT in IV NORMAL SALINE 99 ML IV PRN ×2 (21:05)
[2018-07-17] MEDS: IV D5/ 0.9% NACL 1,000 ML IV PRN (21:06)
[2018-07-17] MEDS: ENOXAPARIN SODIUM 40 MG/0.4 ML DISP.SYRIN SQ SCH (21:07)
[2018-07-17] MEDS: MORPHINE SULFATE 4 MG/1 ML DISP.SYRIN IV PRN (21:15)
[2018-07-17] MEDS ORDERED: MORPHINE SULFATE 2 MG/1 ML DISP.SYRIN IM PRN (21:15)
[2018-07-17 21:30] VITALS: BP 106/68
[2018-07-17 22:00] VITALS: BP 120/72
[2018-07-17 23:00] VITALS: BP 117/75
[2018-07-18] VITALS (22 sets, daily range): BP systolic 106–157; BP diastolic 55–90
[2018-07-18] MEDS: BLOOD SUGAR DIAGNOSTIC 1 EACH STRIP VI SCH ×24 (00:45→23:47)
[2018-07-18] MEDS ORDERED: SODIUM CHLORIDE 4 MEQ/ML VIAL 154 MEQ in IV 10% DEXTROSE 1,000 ML IV PRN (02:00)
[2018-07-18] MEDS: IV 10% DEXTROSE 1,000 ML IV PRN ×3 (03:51→21:27)
[2018-07-18] MEDS: INSULIN REGULAR, HUMAN 100 UNIT in IV NORMAL SALINE 99 ML IV PRN ×10 (05:03→22:43)
[2018-07-18 05:20] LABS: CREATININE 0.8 mg/dL (0.6-1.3); MAGNESIUM 1.9 mg/dL (1.8-2.4); PHOSPHOROUS 3.6 mg/dL (2.5-4.9); POTASSIUM 3.3 mmol/L (3.5-5.1)
[2018-07-18 05:21] LABS: BASOPHILS # (AUTO) 0.1 K/uL (0.0-8.0); BASOPHILS % (AUTO) 0.5 % (0.0-2.0); EOSINOPHILS # (AUTO) 0.1 K/uL (0.0-0.7); EOSINOPHILS % (AUTO) 1.1 % (0.0-7.0); HEMATOCRIT 42.3 % (36.7-47.1); HEMOGLOBIN 14.8 g/dL (12.5-16.3); LYMPHOCYTES # (AUTO) 2.7 K/uL (20.0-40.0); LYMPHOCYTES % (AUTO) 23.2 % (20.5-51.5); MEAN CORPUSCULAR HGB CONC 35 g/dL (32.5-36.3); MEAN CORPUSCULAR VOLUME 82.8 fL (73.0-96.2); MONOCYTES # (AUTO) 0.7 K/uL (2.0-10.0); MONOCYTES % (AUTO) 5.6 % (0.0-11.0); NEUTROPHILS # (AUTO) 8.1 K/uL (1.8-8.9); NEUTROPHILS % (AUTO) 69.6 % (38.5-71.5); PLATELET COUNT (AUTO) 274 K/uL (152-348); RED BLOOD CELL COUNT(AUTO) 5.11 MIL/uL (4.06-5.63); WHITE BLOOD COUNT (AUTO) 11.6 K/uL (3.6-10.2)
[2018-07-18] MEDS: IV D5/ 0.9% NACL 1,000 ML IV PRN (06:35)
[2018-07-18] MEDS ORDERED: ENOXAPARIN SODIUM 40 MG/0.4 ML DISP.SYRIN SQ SCH (09:00)
[2018-07-18] MEDS: GEMFIBROZIL 600 MG TABLET PO SCH ×2 (09:19→16:56)
[2018-07-18] MEDS: ACETAMINOPHEN 325 MG TABLET PO PRN ×2 (12:48→16:55)
[2018-07-18] MEDS ORDERED: POTASSIUM CHLORIDE 20 MEQ TAB.PRT.SR PO ONE (16:00)
[2018-07-18 19:38] LABS: CREATININE 0.9 mg/dL (0.6-1.3)
[2018-07-18] MEDS: ENOXAPARIN SODIUM 40 MG/0.4 ML DISP.SYRIN SQ SCH (20:18)
[2018-07-18] MEDS: MORPHINE SULFATE 4 MG/1 ML DISP.SYRIN IV PRN (21:51)
[2018-07-19] VITALS (15 sets, daily range): BP systolic 113–153; BP diastolic 74–98
[2018-07-19] MEDS: BLOOD SUGAR DIAGNOSTIC 1 EACH STRIP VI SCH ×14 (00:43→20:14)
[2018-07-19] MEDS: INSULIN REGULAR, HUMAN 100 UNIT in IV NORMAL SALINE 99 ML IV PRN ×6 (03:31→10:24)
[2018-07-19] MEDS: IV 10% DEXTROSE 1,000 ML IV PRN (04:03)
[2018-07-19 05:08] LABS: BASOPHILS % (AUTO) 0.4 % (0.0-2.0); EOSINOPHILS # (AUTO) 0.1 K/uL (0.0-0.7); EOSINOPHILS % (AUTO) 2.2 % (0.0-7.0); HEMATOCRIT 38.6 % (36.7-47.1); LYMPHOCYTES # (AUTO) 2.3 K/uL (20.0-40.0); LYMPHOCYTES % (AUTO) 39.3 % (20.5-51.5); MEAN CORPUSCULAR HEMOGLOBIN 29.6 uug (23.8-33.4); MEAN CORPUSCULAR HGB CONC 36 g/dL (32.5-36.3); MEAN CORPUSCULAR VOLUME 81.6 fL (73.0-96.2); MONOCYTES # (AUTO) 0.4 K/uL (2.0-10.0); NEUTROPHILS % (AUTO) 51.1 % (38.5-71.5); PLATELET COUNT (AUTO) 192 K/uL (152-348); RED BLOOD CELL COUNT(AUTO) 4.72 MIL/uL (4.06-5.63); WHITE BLOOD COUNT (AUTO) 5.8 K/uL (3.6-10.2)
[2018-07-19 05:22] LABS: CREATININE 0.8 mg/dL (0.6-1.3); MAGNESIUM 1.8 mg/dL (1.8-2.4); POTASSIUM 2.9 mmol/L (3.5-5.1)
[2018-07-19] MEDS ORDERED: POTASSIUM CHLORIDE 50 ML IV SCH (08:45)
[2018-07-19] MEDS: GEMFIBROZIL 600 MG TABLET PO SCH ×2 (10:21→16:44)
[2018-07-19] MEDS: ACETAMINOPHEN 325 MG TABLET PO PRN (10:27)
[2018-07-19] MEDS ORDERED: POTASSIUM CHLORIDE 20 MEQ TAB.PRT.SR PO ONE (10:30)
[2018-07-19] MEDS: IV NS 1000 ML 1,000 ML IV SCH (12:45)
[2018-07-19] MEDS: METFORMIN HCL 500 MG TABLET PO SCH (17:54)
[2018-07-19 18:31] LABS: CREATININE 0.9 mg/dL (0.6-1.3); POTASSIUM 3.8 mmol/L (3.5-5.1)
[2018-07-19] MEDS: ENOXAPARIN SODIUM 40 MG/0.4 ML DISP.SYRIN SQ SCH (20:10)
[2018-07-19] MEDS: MORPHINE SULFATE 4 MG/1 ML DISP.SYRIN IV PRN (20:15)
[2018-07-20] MEDS: BLOOD SUGAR DIAGNOSTIC 1 EACH STRIP VI SCH ×3 (00:03→08:09)
[2018-07-20] MEDS: IV NS 1000 ML 1,000 ML IV SCH (01:29)
[2018-07-20] MEDS: MORPHINE SULFATE 4 MG/1 ML DISP.SYRIN IV PRN (04:11)
[2018-07-20 05:11] VITALS: BP 128/85
[2018-07-20 06:36] LABS: BASOPHILS % (AUTO) 0.5 % (0.0-2.0); EOSINOPHILS # (AUTO) 0.2 K/uL (0.0-0.7); EOSINOPHILS % (AUTO) 5.5 % (0.0-7.0); HEMATOCRIT 38.1 % (36.7-47.1); HEMOGLOBIN 13.2 g/dL (12.5-16.3); LYMPHOCYTES # (AUTO) 1.9 K/uL (20.0-40.0); LYMPHOCYTES % (AUTO) 48.1 % (20.5-51.5); MEAN CORPUSCULAR HEMOGLOBIN 29.5 uug (23.8-33.4); MEAN CORPUSCULAR HGB CONC 35 g/dL (32.5-36.3); MEAN CORPUSCULAR VOLUME 85.4 fL (73.0-96.2); MONOCYTES # (AUTO) 0.3 K/uL (2.0-10.0); MONOCYTES % (AUTO) 8.4 % (0.0-11.0); NEUTROPHILS # (AUTO) 1.5 K/uL (1.8-8.9); NEUTROPHILS % (AUTO) 37.5 % (38.5-71.5); PLATELET COUNT (AUTO) 171 K/uL (152-348); RED BLOOD CELL COUNT(AUTO) 4.47 MIL/uL (4.06-5.63); WHITE BLOOD COUNT (AUTO) 3.9 K/uL (3.6-10.2)
[2018-07-20 06:53] LABS: MAGNESIUM 1.6 mg/dL (1.8-2.4); PHOSPHOROUS 3.2 mg/dL (2.5-4.9)
[2018-07-20] MEDS: GEMFIBROZIL 600 MG TABLET PO SCH (08:09)
[2018-07-20] MEDS: METFORMIN HCL 500 MG TABLET PO SCH (08:09)
[2018-07-20 11:17] VITALS: BP 153/102
[2018-07-20] MEDS ORDERED: MAGNESIUM OXIDE 400 MG TABLET PO ONE (11:30)
== END 2018-07-20 12:10 | disposition home or self-care (01) | DRG 282 ==
LOC: ER 14:34 → MED 17:08 → ICU 19:13 → CCU 19:35 → MED 07-19 13:52
PROVIDERS: ADMIT Nurse Practitioner Acute Care; ATTEND Nurse Practitioner Acute Care
DX: K85.80 Other acute pancreatitis without necrosis or infection (principal); D68.59 Other primary thrombophilia; E11.649 Type 2 diabetes mellitus with hypoglycemia without coma; E11.65 Type 2 diabetes mellitus with hyperglycemia; E66.01 Morbid (severe) obesity due to excess calories; Z79.4 Long term (current) use of insulin; E78.1 Pure hyperglyceridemia; Z68.36 Body mass index [BMI] 36.0-36.9, adult; E87.1 Hypo-osmolality and hyponatremia; E78.5 Hyperlipidemia, unspecified; Z91.14 Patient's other noncompliance with medication regimen
CPT/HCPCS: 36415; 70030-TC; 71045; 83605; 83690; 83735; 84100; 84478; 85025; 87040; 87400; 93005; A4663; G0378; J1170; J1650; J1815; J1885; J2270; J2405; J3490; J7030; J7040; J7042; J7131

== ENCOUNTER 2018-12-20 16:34 | Emergency (ER) | payer MEDICAID, OTHER ==
[~2018-12-20] VITALS: Ht 188 cm; Wt 127.0 kg
[~2018-12-20 16:34] MED LIST changes: -ACET-2154 PO; -AMYL1CAP58 PO; -CIPR-262 PO; -HYDR-3326 PO; -INSU100C4 SUBCUT; -INSU100V10 SQ; -METR500T PO; -PANT40TA2 PO
[2018-12-20] MEDS ORDERED: IV NORMAL SALINE 1000 ML BAG IV ONE (17:00)
[2018-12-20] MEDS ORDERED: HYDROMORPHONE 1 MG/1 ML DISP.SYRIN IV ONE ×4 (17:00→19:45)
[2018-12-20] MEDS ORDERED: ONDANSETRON 4 MG/2 ML VIAL IV ONE (17:00)
[2018-12-20] MEDS ORDERED: ONDANSETRON 4 MG/2 ML VIAL ONE (17:13)
[2018-12-20] MEDS ORDERED: HYDROMORPHONE 1 MG/1 ML DISP.SYRIN ONE ×4 (17:13→19:42)
[2018-12-20 17:50] LABS: HEMOGLOBIN 15.2 g/dL (12.5-16.3); MEAN CORPUSCULAR HEMOGLOBIN 29.7 uug (23.8-33.4); MEAN CORPUSCULAR HGB CONC 35 g/dL (32.5-36.3); MEAN CORPUSCULAR VOLUME 84.1 fL (73.0-96.2); PLATELET COUNT (AUTO) 232 K/uL (152-348); RED BLOOD CELL COUNT(AUTO) 5.11 MIL/uL (4.06-5.63)
[2018-12-20 18:01] LABS: WHITE BLOOD COUNT (AUTO) 10.9 K/uL (3.6-10.2)
[2018-12-20 18:03] LABS: BAND % (MANUAL) 3 % (0-10); LYMPHOCYTES % (MANUAL) 32 % (20-40); MONOCYTES % (MANUAL) 6 % (2-10); NEUTROPHILS % (MANUAL) 59 % (42-75)
--- NOTE | 2018-12-20 18:55 | NUR ---
BS- 250mg/dl
[2018-12-20] MEDS ORDERED: INSULIN REGULAR, HUMAN 300 UNIT/3 ML VIAL IV ONE (19:15)
[2018-12-20] MEDS ORDERED: INSULIN REGULAR, HUMAN 300 UNIT/3 ML VIAL ONE (19:20)
[2018-12-20 19:54] LABS: POTASSIUM 4.2 mmol/L (3.5-5.1)
[2018-12-20 19:56] LABS: BILIRUBIN,DIRECT 0.1 mg/dL (0.0-0.2); BILIRUBIN,TOTAL 0.4 mg/dL (0.1-1.0)
[2018-12-20 19:57] LABS: TOTAL PROTEIN, SERUM 8.1 g/dL (6.4-8.2)
--- NOTE | 2018-12-20 20:20 | NUR ---
Pt refusing to be transferred to [facility]. Pt speaking with Farsi speaking hot top liner helper.
--- NOTE | 2018-12-20 20:30 | NUR ---
Received [facility] information[facility] Number to report to and Emmanuelle HALEY.
--- NOTE | 2018-12-20 20:42 | NUR ---
Patient agreed on the patient transfer and signs transfer form.
--- NOTE | 2018-12-20 20:45 | NUR ---
Lyndsey arrived to ER to transport pt to [facility]. Report and documentation given to EMT.
--- NOTE | 2018-12-20 20:52 | NUR ---
Report given to Emmanuelle [facility].
--- NOTE | 2018-12-20 20:55 | NUR ---
Pt out of ER via Ambulance gurney to be transported to [facility]. Report and documentation with EMT.
== END 2018-12-20 20:58 | disposition short-term general hospital (02) ==
LOC: ER 16:36
DX: K85.90 Acute pancreatitis without necrosis or infection, unspecified (principal); E78.1 Pure hyperglyceridemia; E78.5 Hyperlipidemia, unspecified; E11.9 Type 2 diabetes mellitus without complications; Z79.899 Other long term (current) drug therapy
CPT/HCPCS: 36415; 71045; 80048; 80076; 82962; 83690; 84484; 85025; 93005; 96374; 96375; 96376; 99285; J1170 ×4; J1815; J2405; 70030-TC; A4663; J7030

== ENCOUNTER 2019-10-12 18:04 | Inpatient (IN) | payer MEDICAID, OTHER ==
[~2019-10-12] VITALS: Ht 193 cm; Wt 127.0 kg
[2019-10-12 18:23] LABS: *BILIRUBIN,URIN NEGATIVE (NEGATIVE); *BLOOD, URINE NEGATIVE (NEGATIVE); *CLARITY,URINE CLEAR (CLEAR); *COLOR,URINE YELLOW (YELLOW); *KETONES,URINE NEGATIVE (NEGATIVE); *UROBILINOGEN,URINE 0.2 E.U./dl (NORMAL); LEUKOCYTE ESTERASE ,URINE NEGATIVE (NEGATIVE); NITRITE, URINE NEGATIVE (NEGATIVE); UGLUCOSE 2+ (NEGATIVE)
--- NOTE | 2019-10-12 18:27 | NUR ---
Dr Abreu at the bedside for MSE.
[2019-10-12] MEDS ORDERED: HYDROMORPHONE 1 MG/1 ML DISP.SYRIN IV ONE ×2 (18:30→20:00)
[2019-10-12] MEDS ORDERED: PANTOPRAZOLE SODIUM 40 MG VIAL IV ONE (18:30)
[2019-10-12] MEDS ORDERED: ONDANSETRON 4 MG/2 ML VIAL IV ONE (18:30)
[2019-10-12] MEDS ORDERED: HYDROMORPHONE 1 MG/1 ML DISP.SYRIN ONE ×2 (18:32→19:55)
[2019-10-12] MEDS ORDERED: ONDANSETRON 4 MG/2 ML VIAL ONE (18:32)
[2019-10-12] MEDS ORDERED: PANTOPRAZOLE SODIUM 40 MG VIAL ONE (18:38)
[2019-10-12 18:39] LABS: MUCUS,URINE FEW /LPF (0-FEW); WBC,URINE 0-3 /HPF (0-3)
--- NOTE | 2019-10-12 18:58 | NUR ---
Handsoff report given to Marci Parkinson.
[2019-10-12] MEDS ORDERED: IV NORMAL SALINE 1000 ML BAG IV ONE (19:00)
[2019-10-12 19:15] LABS: BILIRUBIN,DIRECT 0.1 mg/dL (0.0-0.2); BILIRUBIN,TOTAL 0.5 mg/dL (0.2-1.0); CREATININE 0.9 mg/dL (0.6-1.3); POTASSIUM 3.8 mmol/L (3.5-5.1); TOTAL PROTEIN, SERUM 8.2 g/dL (6.4-8.2)
--- NOTE | 2019-10-12 20:05 | NUR ---
NAHID CAVAZOS ADVISOR TO COMMAND IN COMBAT CALLED BACK SPOKE WITH DR NEWMAN ACCEPTED PATIENT.
[2019-10-12 20:23] LABS: HEMATOCRIT 40.1 % (40-50); HEMOGLOBIN 14.6 G/DL (14.0-18.0); MEAN CORPUSCULAR HEMOGLOBIN 30.7 UUG (27.0-31.0); MEAN CORPUSCULAR VOLUME 82.9 FL (82.0-92.0); RED BLOOD CELL COUNT(AUTO) 4.77 MIL/UL (4.7-6.1)
[2019-10-12 20:24] LABS: BASOPHILS % (AUTO) 0.5 % (0.0-2.0); EOSINOPHILS % (AUTO) 0.6 % (0.0-7.0); LYMPHOCYTES % (AUTO) 22.3 % (20.5-51.5); MEAN CORPUSCULAR HGB CONC 37 g/dL (32.0-37.0); MONOCYTES % (AUTO) 4.9 % (0.0-11.0); NEUTROPHILS % (AUTO) 71.7 % (38.5-71.5); PLATELET COUNT (AUTO) 239 K/UL (150-450)
[2019-10-12 20:25] LABS: BASOPHILS # (AUTO) 0.1 K/uL (0.0-8.0); EOSINOPHILS # (AUTO) 0.1 K/uL (0.0-0.7); LYMPHOCYTES # (AUTO) 2.5 K/UL (0.8-4.8); MONOCYTES # (AUTO) 0.5 K/UL (0.1-1.30); NEUTROPHILS # (AUTO) 7.9 K/UL (1.8-8.9)
[2019-10-12 20:26] LABS: WHITE BLOOD COUNT (AUTO) 10.3 K/UL (4.0-11.2)
[2019-10-12] MEDS ORDERED: ACETAMINOPHEN 325 MG TABLET PO PRN (20:30)
[2019-10-12] MEDS ORDERED: DEXTROSE 50% 50 ML DISP.SYRIN IV PRN (20:30)
[2019-10-12] MEDS ORDERED: MAGNESIUM HYDROXIDE 30 ML LIQUID UDC PO PRN (20:30)
[2019-10-12] MEDS ORDERED: ONDANSETRON 4 MG/2 ML VIAL IV PRN (20:30)
[2019-10-12] MEDS ORDERED: Z GUARD REMEDY PASTE 57 GM TUBE TOP PRN (20:30)
--- NOTE | 2019-10-12 20:50 | NUR ---
Received admission report from ER c/o Raúl DYE.
--- NOTE | 2019-10-12 21:37 | NUR ---
Admitted patient from ER via gurney, ambulated to the bed with steady gait. AAO x 4, complaint of left upper quadrant pain in scale 4/10. Routine admission care done. Plan of care initiated.
[2019-10-12 21:41] VITALS: BP 142/92
[2019-10-12] MEDS: HYDROMORPHONE 1 MG/1 ML DISP.SYRIN IV PRN (22:31)
[2019-10-12] MEDS: ENOXAPARIN SODIUM 40 MG/0.4 ML DISP.SYRIN SQ SCH (22:36)
[2019-10-12] MEDS: BLOOD SUGAR DIAGNOSTIC 1 EACH STRIP VI SCH ×2 (22:42→23:45)
[2019-10-12] MEDS: IV NS 1000 ML 1,000 ML IV PRN (22:50)
[2019-10-12] MEDS: INSULIN REGULAR, HUMAN 300 UNIT/3 ML VIAL SQ PRN (22:53)
[2019-10-13] MEDS: HYDROMORPHONE 1 MG/1 ML DISP.SYRIN IV PRN ×6 (02:37→22:08)
[2019-10-13] MEDS: IV NS 1000 ML 1,000 ML IV PRN ×4 (04:52→23:30)
--- NOTE | 2019-10-13 05:13 | NUR ---
Shift End Report: Vs stable. Slept well. Medicated twice for complaint of abdominal pain with relief. All needs attended and met. No significant event reported all night. Remain NPO as ordered. IVF continuous. No redness/infiltration noted on IV site. Continue current rehab plan of care.
[2019-10-13] MEDS: BLOOD SUGAR DIAGNOSTIC 1 EACH STRIP VI SCH ×4 (05:32→20:43)
[2019-10-13] MEDS: INSULIN REGULAR, HUMAN 300 UNIT/3 ML VIAL SQ PRN ×4 (05:37→21:02)
[2019-10-13 05:40] VITALS: BP 117/71
[2019-10-13 06:09] LABS: BASOPHILS % (AUTO) 0.4 % (0.0-2.0); EOSINOPHILS % (AUTO) 0.3 % (0.0-7.0); HEMATOCRIT 41.2 % (36.7-47.1); HEMOGLOBIN 17.8 g/dL (12.5-16.3); LYMPHOCYTES # (AUTO) 1.7 K/uL (20.0-40.0); LYMPHOCYTES % (AUTO) 14.4 % (20.5-51.5); MEAN CORPUSCULAR HEMOGLOBIN 36.1 uug (23.8-33.4); MEAN CORPUSCULAR HGB CONC 43 g/dL (32.5-36.3); MEAN CORPUSCULAR VOLUME 83.6 fL (73.0-96.2); MONOCYTES # (AUTO) 0.5 K/uL (2.0-10.0); MONOCYTES % (AUTO) 4.5 % (0.0-11.0); NEUTROPHILS # (AUTO) 9.4 K/uL (1.8-8.9); NEUTROPHILS % (AUTO) 80.4 % (38.5-71.5); PLATELET COUNT (AUTO) 266 K/uL (152-348); RED BLOOD CELL COUNT(AUTO) 4.92 MIL/uL (4.06-5.63); WHITE BLOOD COUNT (AUTO) 11.7 K/uL (3.6-10.2)
[2019-10-13 06:23] LABS: THYROID STIMULATING HORMONE 0.726 mIU/mL (0.358-3.740)
[2019-10-13 06:37] LABS: CREATININE 0.9 mg/dL (0.6-1.3); MAGNESIUM 1.5 mg/dL (1.8-2.4); PHOSPHOROUS 2.8 mg/dL (2.5-4.9); POTASSIUM 3.7 mmol/L (3.5-5.1)
--- NOTE | 2019-10-13 07:20 | NUR ---
RECEIVED PATIENT IN BED ASLEEP OPENS EYES WHEN IS CALLED ALERT AND ORIENTED PATIENT SEEMS COMFORTABLE AT THIS TIME REMAIN ON IVF ORDERED WITH NO S/S OF INFILTERATION ON SITE HE IS NOTHING BY MOUTH INSTRUCTED ORDERED CALL LIGHTS AND PERSOANL BELONGINGS ARE WITHIN EASY REACH AT THIS TIME WILL CONTINUE TO OBSERVE.
[2019-10-13] MEDS ORDERED: MAGNESIUM OXIDE 400 MG TABLET PO ONE (08:15)
--- NOTE | 2019-10-13 08:22 | NUR ---
DR AMATOIAN HERE TO SEE PATIENT WITH NEW ORDERS AND NOTED.
[2019-10-13] MEDS: GEMFIBROZIL 600 MG TABLET PO SCH ×2 (09:00→16:32)
[2019-10-13] MEDS: OMEGA-3 FATTY ACIDS/FISH OIL CAPSULE PO SCH ×2 (09:00→20:31)
[2019-10-13] MEDS: PANTOPRAZOLE SODIUM 40 MG VIAL IV SCH (09:03)
[2019-10-13] MEDS ORDERED: DEXTROSE 50% 50 ML DISP.SYRIN IV PRN (09:15)
[2019-10-13] MEDS: MAGNESIUM SULFATE/D5W 100 ML IV SCH ×2 (10:03→11:28)
[2019-10-13 11:58] VITALS: BP 97/50
[2019-10-13 16:13] VITALS: BP 129/82
--- NOTE | 2019-10-13 16:42 | NUR ---
PATIENT SEEN AND EXAMINED BY BETH WARE WITH NEW ORDERS AND NOTED PATIENT CONTINUES TO REQUIRE PAIN MEDICATIONS FOR HIS ABDOMINAL PAIN GIVEN ORDERED AND HELPFUL IVF REMAINS IN PROGRESS WITH NO S/S OF INFILTERATION AT THIS TIME MADE COMFORTABLE WILL CONTINUE TO OBSERVE.
--- NOTE | 2019-10-13 19:00 | NUR ---
PATIENT ALERT ORIENTED, NO SOB NO CHEST PAIN. PATIENT CONT ON PAIN MANAGEMENT, REMAINS NPO ORDERED, CONT TO MONITOR.
[2019-10-13 20:00] VITALS: BP 132/85
[2019-10-13] MEDS: ENOXAPARIN SODIUM 40 MG/0.4 ML DISP.SYRIN SQ SCH (20:44)
--- NOTE | 2019-10-13 21:34 | NUR ---
PATIENT REQUEST FOR SLEEP PILL, NOTIFY MITRA GLYNN MECHANICAL PRESS OPERATOR WITH ORDER.
[2019-10-13] MEDS: ZOLPIDEM 5 MG TABLET PO PRN (22:15)
[2019-10-14] MEDS: INSULIN REGULAR, HUMAN 300 UNIT/3 ML VIAL SQ PRN ×5 (00:37→23:47)
[2019-10-14] MEDS: BLOOD SUGAR DIAGNOSTIC 1 EACH STRIP VI SCH ×6 (00:46→23:45)
[2019-10-14] MEDS: HYDROMORPHONE 1 MG/1 ML DISP.SYRIN IV PRN ×6 (02:35→22:06)
[2019-10-14] MEDS: IV NS 1000 ML 1,000 ML IV PRN ×3 (04:13→23:22)
[2019-10-14 06:27] VITALS: BP 141/85
--- NOTE | 2019-10-14 06:45 | NUR ---
PATIENT ALERT ORIENTED, CONT PAIN MANAGEMENT OF ABDOMEN, AND HEAD. PATIENT SLEPT MOST OF THE NIGHT, CALL LIGHT WITHIN REACH, REMAIN NPO. ACCUCHECK DONE. CONT TO MONITOR.
[2019-10-14 06:55] LABS: BASOPHILS % (AUTO) 0.4 % (0.0-2.0); EOSINOPHILS # (AUTO) 0.1 K/uL (0.0-0.7); EOSINOPHILS % (AUTO) 1.1 % (0.0-7.0); HEMATOCRIT 39.3 % (36.7-47.1); HEMOGLOBIN 13.8 g/dL (12.5-16.3); LYMPHOCYTES % (AUTO) 17.4 % (20.5-51.5); MEAN CORPUSCULAR HEMOGLOBIN 29.4 uug (23.8-33.4); MEAN CORPUSCULAR HGB CONC 35 g/dL (32.5-36.3); MEAN CORPUSCULAR VOLUME 83.4 fL (73.0-96.2); MONOCYTES # (AUTO) 0.5 K/uL (2.0-10.0); MONOCYTES % (AUTO) 4.3 % (0.0-11.0); NEUTROPHILS # (AUTO) 8.6 K/uL (1.8-8.9); NEUTROPHILS % (AUTO) 76.8 % (38.5-71.5); PLATELET COUNT (AUTO) 219 K/uL (152-348); RED BLOOD CELL COUNT(AUTO) 4.71 MIL/uL (4.06-5.63); WHITE BLOOD COUNT (AUTO) 11.2 K/uL (3.6-10.2)
[2019-10-14 07:11] LABS: CREATININE 0.8 mg/dL (0.6-1.3); PHOSPHOROUS 2.5 mg/dL (2.5-4.9); POTASSIUM 3.2 mmol/L (3.5-5.1)
[2019-10-14 07:20] LABS: THYROID STIMULATING HORMONE 0.557 mIU/mL (0.358-3.740)
--- NOTE | 2019-10-14 07:45 | NUR ---
RECEIVED PATIENT IN BED ASLEEP AT THIS TIME BT IS EASILY AROUSABLE WHEN TOUCHED OR NAME IS CALLED PATIENT HAS RECEIVED PAIN MEDICATIONS PER REPORT WHICH APPARENTLY IS EFFECTIVE IVF REMAINS IN PROGRESS ORDERED WITH NO S/S OF INFILTERATION ON SITE.CALL LIGHTS AND PERSONAL BELONGINGS ARE WITHIN EASY REACH MADE COMFORTABLE WILL CONTINUE TO OBSERVE.
[2019-10-14 07:53] LABS: MAGNESIUM 1.7 mg/dL (1.8-2.4); URIC ACID 5.2 mg/dL (3.5-7.2)
--- NOTE | 2019-10-14 08:00 | NUR ---
POTASSIUM LEVEL IS 3.2 AND MAG 1.7 REVIEWED BY BARB HEALTH ASSISTANT WITH NEW ORDERS AND NOTED.
[2019-10-14] MEDS: PANTOPRAZOLE SODIUM 40 MG VIAL IV SCH (08:30)
[2019-10-14] MEDS: MAGNESIUM SULFATE/D5W 100 ML IV SCH ×2 (08:34→09:38)
[2019-10-14] MEDS: OMEGA-3 FATTY ACIDS/FISH OIL CAPSULE PO SCH ×3 (08:38→21:06)
[2019-10-14] MEDS: GEMFIBROZIL 600 MG TABLET PO SCH ×2 (08:38→16:12)
[2019-10-14] MEDS: POTASSIUM CHLORIDE 50 ML IV SCH ×2 (10:38→14:27)
[2019-10-14 12:30] VITALS: BP 143/79
--- NOTE | 2019-10-14 13:40 | NUR ---
PATIENT IS REFUSING TO CONTINUE WITH HIS POTASSIUM IVPB ORDERED DID TOLERATED ONE BAG OF 10 MEQ CRYING AND SCREAMING DESPITE REDUCED RATE RUNNING WITH NS AND APPLYING ICE COMPRESS BARB DINKEY BRAKEMAN NOTIFIED THAT PATIENT IS REFUSING THE SECOND BAG AND HE STATED [place] WILL RECHECK POTASSIUM IN AM AND THEN WILL DECIDE ON NEXT PLAN OF ACTION.
[2019-10-14] MEDS ORDERED: DEXTROSE 50% 50 ML DISP.SYRIN IV PRN ×2 (14:30)
[2019-10-14] MEDS ORDERED: INSULIN REGULAR, HUMAN 300 UNIT/3 ML VIAL SQ PRN (14:30)
[2019-10-14 16:15] VITALS: BP 146/90
[2019-10-14] MEDS ORDERED: BLOOD SUGAR DIAGNOSTIC 1 EACH STRIP VI SCH (18:00)
--- NOTE | 2019-10-14 18:49 | NUR ---
PAIN MEDICATION EFFECTIVE AND HELPFUL ORDERED.RESTING WELL.
--- NOTE | 2019-10-14 19:30 | NUR ---
Sleeping during initial rounds. No s/s of respiratory distress. No s/s of pain/discomforts at this time. IVF infusing continuously on LW. No s/s of infiltration. Safety measure and fall precaution maintained. Continue care as planned.
[2019-10-14 20:31] VITALS: BP 130/79
[2019-10-14] MEDS: ENOXAPARIN SODIUM 40 MG/0.4 ML DISP.SYRIN SQ SCH (20:45)
[2019-10-14] MEDS ORDERED: SIMVASTATIN 40 MG TABLET PO SCH (21:00)
--- NOTE | 2019-10-14 21:00 | NUR ---
Obtained order from Dr Moss for NPO except meds
[2019-10-14] MEDS: ZOLPIDEM 5 MG TABLET PO PRN (21:05)
[2019-10-15] MEDS: HYDROMORPHONE 1 MG/1 ML DISP.SYRIN IV PRN ×3 (03:34→11:55)
[2019-10-15 05:30] VITALS: BP 109/65
[2019-10-15] MEDS: BLOOD SUGAR DIAGNOSTIC 1 EACH STRIP VI SCH ×2 (05:35→12:12)
[2019-10-15] MEDS: INSULIN REGULAR, HUMAN 300 UNIT/3 ML VIAL SQ PRN ×2 (05:37→12:27)
[2019-10-15] MEDS: IV NS 1000 ML 1,000 ML IV PRN (05:44)
--- NOTE | 2019-10-15 06:17 | NUR ---
Shift End Report: Vs stable. Slept in between care. Medicated twice for pain with help. IVF continuous at 150cc/hour. No s/s of infiltration noted on IV site. All needs attended and met. No significant event reported all night. Continue current plan of care.
[2019-10-15 06:44] LABS: BASOPHILS % (AUTO) 0.1 % (0.0-2.0); EOSINOPHILS # (AUTO) 0.1 K/uL (0.0-0.7); EOSINOPHILS % (AUTO) 1.7 % (0.0-7.0); HEMOGLOBIN 13.4 g/dL (12.5-16.3); LYMPHOCYTES # (AUTO) 1.9 K/uL (20.0-40.0); LYMPHOCYTES % (AUTO) 23.4 % (20.5-51.5); MEAN CORPUSCULAR HEMOGLOBIN 29.5 uug (23.8-33.4); MEAN CORPUSCULAR HGB CONC 35 g/dL (32.5-36.3); MEAN CORPUSCULAR VOLUME 83.8 fL (73.0-96.2); MONOCYTES # (AUTO) 0.4 K/uL (2.0-10.0); MONOCYTES % (AUTO) 5.3 % (0.0-11.0); NEUTROPHILS # (AUTO) 5.6 K/uL (1.8-8.9); NEUTROPHILS % (AUTO) 69.5 % (38.5-71.5); PLATELET COUNT (AUTO) 196 K/uL (152-348); RED BLOOD CELL COUNT(AUTO) 4.54 MIL/uL (4.06-5.63)
[2019-10-15 07:25] LABS: CREATININE 0.7 mg/dL (0.6-1.3); MAGNESIUM 1.7 mg/dL (1.8-2.4); PHOSPHOROUS 2.7 mg/dL (2.5-4.9); POTASSIUM 3.2 mmol/L (3.5-5.1)
--- NOTE | 2019-10-15 07:46 | NUR ---
Received patient in bed awake looking at his phone, Patient is AAO x 4. No acute distress noted. Patient complained of abdominal pain while assessing patient. IV hydration running as ordered. IV site on left arm intact and patent. Safety measures in place, call light within easy reach and will continue wit care.
[2019-10-15] MEDS ORDERED: POTASSIUM CHLORIDE 20 MEQ TAB.PRT.SR PO ONE (08:30)
[2019-10-15] MEDS: GEMFIBROZIL 600 MG TABLET PO SCH (09:00)
--- NOTE | 2019-10-15 09:00 | NUR ---
Patient tolerated clear liquid diet no c/o N/V.
[2019-10-15] MEDS: PANTOPRAZOLE SODIUM 40 MG VIAL IV SCH (09:01)
[2019-10-15] MEDS: MAGNESIUM SULFATE/D5W 100 ML IV SCH ×2 (09:31→11:50)
[2019-10-15 11:11] VITALS: BP 143/92
--- NOTE | 2019-10-15 12:40 | NUR ---
Patient tolerated full liquid diet and no complains of N/V.
--- NOTE | 2019-10-15 12:46 | NUR ---
Patient complained of abdominal pain Dilaudid 1mg IV administered as ordered and effective will continue wit care.
--- NOTE | 2019-10-15 14:58 | NUR ---
DISCHARGE NOTE: Patient seen by Von CUSTOMER RESPONSE REPRESENTATIVE and gave an order for patient to be discharged home. Educated patient on all discharge orders. All due medication administered as ordered and scheduled. patient stated Dilaudid was effective for pain. Patient very aware of own condition up on discharge teaching. Patient also aware of prescribed medications and administration. Informed patient to f/up with PCP for further care. Pt. also educated on Covid-19 virus and stated understanding. Patient signed discharge paper works, verbalized understanding of all discharge orders and teaching. All other needs attended, all belongings signed and given to patient. IV line discontinued. Discharge prescription and papers given to patient. Patient assisted out of facility and picked up by a friend and left at 14:55pm.
== END 2019-10-15 14:55 | disposition home or self-care (01) | DRG 282 ==
LOC: ER 18:06 → MEDSURG3 21:10
PROVIDERS: ADMIT Registered Nurse; ATTEND Nurse Practitioner Acute Care
DX: K85.90 Acute pancreatitis without necrosis or infection, unspecified (principal); E11.65 Type 2 diabetes mellitus with hyperglycemia; K76.0 Fatty (change of) liver, not elsewhere classified; E78.5 Hyperlipidemia, unspecified; Z79.4 Long term (current) use of insulin; E66.9 Obesity, unspecified; Z68.34 Body mass index [BMI] 34.0-34.9, adult; E78.1 Pure hyperglyceridemia; E87.1 Hypo-osmolality and hyponatremia; E83.42 Hypomagnesemia; F17.210 Nicotine dependence, cigarettes, uncomplicated; K86.1 Other chronic pancreatitis; Z87.440 Personal history of urinary (tract) infections; Z91.19 Patient's noncompliance with other medical treatment and regimen; Z71.6 Tobacco abuse counseling; D72.829 Elevated white blood cell count, unspecified; Z71.3 Dietary counseling and surveillance; Z79.84 Long term (current) use of oral hypoglycemic drugs
CPT/HCPCS: 36415; 70030-TC; 71045; 82533; 83615; 83690; 83735; 84100; 84300; 84443; 84478; 84550; 85025; 85651; 93005; A4663; C9113; G0378; J1170; J1650; J1815; J2405; J3475; J3480; J7030

== ENCOUNTER 2019-10-20 12:16 | Inpatient (IN) | payer MEDICAID ==
[~2019-10-20] VITALS: Ht 188 cm; Wt 127.0 kg
--- NOTE | 2019-10-20 12:20 | NUR ---
Dr Huber at the bedside for MSE.
[2019-10-20] MEDS ORDERED: HYDROMORPHONE 1 MG/1 ML DISP.SYRIN IV ONE ×2 (12:30→14:45)
[2019-10-20] MEDS ORDERED: ONDANSETRON 4 MG/2 ML VIAL IV ONE ×2 (12:30→14:45)
[2019-10-20] MEDS ORDERED: IV NORMAL SALINE 1000 ML BAG IV ONE (12:30)
[2019-10-20] MEDS ORDERED: ONDANSETRON 4 MG/2 ML VIAL ONE ×2 (12:45→14:52)
[2019-10-20] MEDS ORDERED: HYDROMORPHONE 2 MG/1 ML DISP.SYRIN ONE ×2 (12:45→14:52)
--- NOTE | 2019-10-20 12:55 | NUR ---
Flu swab collected and sent to LAB.
[2019-10-20 13:03] LABS: EOSINOPHILS # (AUTO) 0.1 K/uL (0.0-0.7); LYMPHOCYTES # (AUTO) 2.3 K/uL (20.0-40.0); MEAN CORPUSCULAR VOLUME 83.3 fL (73.0-96.2); MONOCYTES # (AUTO) 0.4 K/uL (2.0-10.0)
[2019-10-20 13:15] LABS: BASOPHILS % (AUTO) 0.6 % (0.0-2.0); EOSINOPHILS % (AUTO) 2.3 % (0.0-7.0); LYMPHOCYTES % (AUTO) 35.8 % (20.5-51.5); MEAN CORPUSCULAR HEMOGLOBIN 28.7 uug (23.8-33.4); MEAN CORPUSCULAR HGB CONC 35 g/dL (32.5-36.3); MONOCYTES % (AUTO) 6.6 % (0.0-11.0); NEUTROPHILS # (AUTO) 3.5 K/uL (1.8-8.9); NEUTROPHILS % (AUTO) 54.7 % (38.5-71.5); RED BLOOD CELL COUNT(AUTO) 4.98 MIL/uL (4.06-5.63); WHITE BLOOD COUNT (AUTO) 6.5 K/uL (3.6-10.2)
[2019-10-20 13:16] LABS: ALKALINE PHOSPHATASE 85 U/L (50-136); BILIRUBIN,DIRECT < 0.1 mg/dL (0.0-0.2); BILIRUBIN,TOTAL 0.5 mg/dL (0.2-1.0); CARBON DIOXIDE 26 mmol/L (21-32); CHLORIDE 91 mmol/L (98-107); TOTAL PROTEIN, SERUM 8.4 g/dL (6.4-8.2); UREA NITROGEN, BLOOD 15 mg/dL (7-18)
[2019-10-20 13:17] LABS: PLATELET COUNT (AUTO) 257 K/uL (152-348)
[2019-10-20 13:18] LABS: GLUCOSE 460 mg/dL (74-106)
[2019-10-20 13:20] LABS: HEMATOCRIT 41.5 % (36.7-47.1); HEMOGLOBIN 14.3 g/dL (12.5-16.3)
[2019-10-20] MEDS ORDERED: INSULIN REGULAR, HUMAN 300 UNIT/3 ML VIAL IV ONE (13:30)
[2019-10-20] MEDS ORDERED: INSULIN LISPRO 300 UNIT/3 ML VIAL SQ ONE (13:31)
[2019-10-20 13:41] LABS: ASPARTATE AMINOTRANSFERASE 174 U/L (15-37)
[2019-10-20 13:42] LABS: ALANINE AMINOTRANSFERASE 42 U/L (16-63)
--- NOTE | 2019-10-20 14:07 | NUR ---
Dr Huber spoke to Dr Moss for Tele admit.
[2019-10-20 14:21] LABS: LIPASE 778 U/L (73-393)
[2019-10-20] MEDS ORDERED: HYDROMORPHONE 1 MG/1 ML DISP.SYRIN IV PRN (15:00)
[2019-10-20] MEDS ORDERED: INSULIN REGULAR, HUMAN 100 UNIT in IV NORMAL SALINE 100 ML IV ONE ×2 (15:45)
[2019-10-20] MEDS ORDERED: INSULIN REGULAR, HUMAN 100 UNITS in IV NORMAL SALINE 100 ML IV ONE ×2 (16:00)
--- NOTE | 2019-10-20 16:10 | NUR ---
Dr Moss notified ER for pt possible admit to CCU and not TELE.
[2019-10-20] MEDS ORDERED: IV NORMAL SALINE 500 ML BAG IV ONE (16:30)
--- NOTE | 2019-10-20 19:50 | NUR ---
Received patient from ER @1930. Patient came in plain clothes with a 20g peripheral IV in the right wrist. He came up to the ccu for monitoring as he is on an insulin drip running @ 3units/hr. The patient was A/O x3 and independent with ADLs. He arrived via gurney, however he was able to stand and transfer himself to the CCU bed without any issue. The patient immediately voiced his concerns being in the CCU with other patients who have active COVID-19 infections. He adamantly refused to be in the ccu and said he wants to be upstairs in telemetry. I conferred with Dr. Moss and he would discontinue the insulin drip and admit him to telemetry.
[2019-10-20 20:00] VITALS: BP 144/87
--- NOTE | 2019-10-20 20:00 | NUR ---
Received patient awake and alert from CCU. Patient shows no signs or symptoms of distress at this time. Patient is on telemetry and is NSR 70s on the monitor. Patient complains of 8/10 left upper abdominal pain. Admitting orders received for patient and will be carried out. Bed set to lowest position. Call light within reach. Will continue to monitor patient.
[2019-10-20] MEDS ORDERED: ENALAPRILAT DIHYDRATE 2.5 MG/2 ML VIAL IV PRN (20:15)
[2019-10-20] MEDS ORDERED: ONDANSETRON 4 MG/2 ML VIAL IV PRN (20:15)
[2019-10-20] MEDS ORDERED: ENOXAPARIN SODIUM 40 MG/0.4 ML DISP.SYRIN SQ SCH (20:15)
[2019-10-20] MEDS ORDERED: ACETAMINOPHEN 650 MG SUPP.RECT RC PRN (20:15)
[2019-10-20] MEDS: ENOXAPARIN SODIUM 40 MG/0.4 ML DISP.SYRIN SQ SCH (20:59)
[2019-10-20] MEDS: HYDROMORPHONE 1 MG/1 ML DISP.SYRIN IV PRN (21:01)
[2019-10-20] MEDS: IV 1/2NS 1000 ML 1,000 ML IV PRN (21:05)
[2019-10-20] MEDS ORDERED: INSULIN REGULAR, HUMAN 300 UNITS/3 ML VIAL SQ PRN (21:30)
[2019-10-20] MEDS ORDERED: BLOOD SUGAR DIAGNOSTIC 1 EACH STRIP VI SCH (21:30)
[2019-10-20] MEDS ORDERED: DEXTROSE 50% 50 ML DISP.SYRIN IV PRN (21:30)
[2019-10-20] MEDS ORDERED: INSULIN REGULAR, HUMAN 300 UNIT/3 ML VIAL SQ PRN (21:30)
[2019-10-20] MEDS: INSULIN GLARGINE,HUM 300 UNITS/3 ML CARTRIDGE SQ SCH (22:01)
--- NOTE | 2019-10-20 22:15 | NUR ---
Patient currently NPO and is receiving insulin and 1/2 NS @ 100cc/hr. Dr. Theodore notified of concern that pt is receiving insulin while NPO and no dextrose is being infused. As per Dr. Theodore, pt does not need fluids with dextrose at this time and to just monitor the patient for now. Will continue to monitor patient.
[2019-10-21] VITALS: BP 110/69
[2019-10-21] MEDS: HYDROMORPHONE 1 MG/1 ML DISP.SYRIN IV PRN ×6 (00:10→20:37)
[2019-10-21 04:00] VITALS: BP 107/71
[2019-10-21 06:27] LABS: BASOPHILS # (AUTO) 0.1 K/uL (0.0-8.0); BASOPHILS % (AUTO) 0.8 % (0.0-2.0); EOSINOPHILS # (AUTO) 0.2 K/uL (0.0-0.7); EOSINOPHILS % (AUTO) 2.9 % (0.0-7.0); HEMATOCRIT 36.5 % (36.7-47.1); HEMOGLOBIN 12.6 g/dL (12.5-16.3); LYMPHOCYTES # (AUTO) 3.3 K/uL (20.0-40.0); LYMPHOCYTES % (AUTO) 48.3 % (20.5-51.5); MEAN CORPUSCULAR HEMOGLOBIN 28.9 uug (23.8-33.4); MEAN CORPUSCULAR HGB CONC 34 g/dL (32.5-36.3); MEAN CORPUSCULAR VOLUME 84.1 fL (73.0-96.2); MONOCYTES # (AUTO) 0.5 K/uL (2.0-10.0); MONOCYTES % (AUTO) 7.1 % (0.0-11.0); NEUTROPHILS # (AUTO) 2.8 K/uL (1.8-8.9); NEUTROPHILS % (AUTO) 40.9 % (38.5-71.5); PLATELET COUNT (AUTO) 238 K/uL (152-348); RED BLOOD CELL COUNT(AUTO) 4.35 MIL/uL (4.06-5.63); WHITE BLOOD COUNT (AUTO) 6.9 K/uL (3.6-10.2)
[2019-10-21] MEDS: BLOOD SUGAR DIAGNOSTIC 1 EACH STRIP VI SCH ×3 (06:31→17:39)
[2019-10-21 06:49] LABS: BILIRUBIN,TOTAL 0.3 mg/dL (0.2-1.0); CREATININE 0.9 mg/dL (0.6-1.3); MAGNESIUM 1.7 mg/dL (1.8-2.4); PHOSPHOROUS 4.4 mg/dL (2.5-4.9); POTASSIUM 3.7 mmol/L (3.5-5.1); TOTAL PROTEIN, SERUM 7.1 g/dL (6.4-8.2)
[2019-10-21] MEDS ORDERED: DEXTROSE 50% 50 ML DISP.SYRIN IV PRN (07:34)
--- NOTE | 2019-10-21 07:36 | NUR ---
Patient shows no signs or symptoms of distress at this time. Patient is NSR on the quality assurance monitor final. Patient endorsed to day shift nurse in stable condition.
[2019-10-21] MEDS: PANTOPRAZOLE SODIUM 40 MG VIAL IV SCH (08:20)
[2019-10-21 09:00] VITALS: BP 120/64
[2019-10-21] MEDS: MAGNESIUM SULFATE/D5W 100 ML IV SCH ×2 (09:34→11:02)
[2019-10-21] MEDS: INSULIN REGULAR, HUMAN 300 UNIT/3 ML VIAL SQ PRN ×2 (12:18→17:42)
--- NOTE | 2019-10-21 12:30 | NUR ---
Patient continue NPO and NS 045% 100ml/hr for hydration and nutrition. tolerated well. left arm IV site- intact and patent. no signs of infiltration. no redness noted during rounds. Complaint of abdomen pain scale of 8 out of 10. Dilaudid 2ml given via IV push. no SOB noted. Seen and examined by MD Valdovinos. no new order. Continue sugar checking with sliding scale protocol. no signs of hypo/hyperglycemia. will continue monitor
[2019-10-21] MEDS: IV 1/2NS 1000 ML 1,000 ML IV PRN ×2 (12:40→20:47)
--- NOTE | 2019-10-21 13:02 | NUR ---
Patient Magnesium 1.7mg low. replace with magnesium 2gms 100 ml/hr. no complaint of discomfort during treatment.
--- NOTE | 2019-10-21 14:27 | NUR ---
Patient endorse to RN for continuity of care in stable condition.
--- NOTE | 2019-10-21 14:30 | NUR ---
PATIENT REASSIGNMENT RECEIVED PATIENT AT THIS TIME IN BED ASLEEP WITH EYES CLOSED BUT AROUSES EASILY SEEMS COMFORTABLE REMAINS NPO ORDERED WITH IVF WITH NO S/S OF INFILTERATION ON SITE.CALL LIGHTS AND PERSONAL BELONGINGS ARE WITHIN EASY REACH AT [facility] TIME WILL CONTINUE TO OBSERVE.
[2019-10-21 17:17] VITALS: BP 124/72
--- NOTE | 2019-10-21 19:48 | NUR ---
Received patient awake and alert. Patient shows no signs or symptoms of distress at this time. Patient complains of pain being 7/10 at this time. Patient due for medication at 2030. Patient notified and verbalized understanding. Call light within reach. Bed set to lowest position. Will continue to monitor patient.
[2019-10-21 20:00] VITALS: BP 116/77
[2019-10-21] MEDS: ENOXAPARIN SODIUM 40 MG/0.4 ML DISP.SYRIN SQ SCH (20:34)
[2019-10-21] MEDS: INSULIN GLARGINE,HUM 300 UNITS/3 ML CARTRIDGE SQ SCH (20:35)
[2019-10-22] VITALS: BP 123/82
[2019-10-22] MEDS: BLOOD SUGAR DIAGNOSTIC 1 EACH STRIP VI SCH ×4 (00:16→18:12)
[2019-10-22] MEDS: HYDROMORPHONE 1 MG/1 ML DISP.SYRIN IV PRN ×5 (00:23→13:53)
[2019-10-22 04:00] VITALS: BP 120/85
[2019-10-22 06:09] LABS: CREATININE 0.8 mg/dL (0.6-1.3); MAGNESIUM 1.8 mg/dL (1.8-2.4); POTASSIUM 3.6 mmol/L (3.5-5.1)
[2019-10-22] MEDS: INSULIN REGULAR, HUMAN 300 UNIT/3 ML VIAL SQ PRN ×3 (06:18→18:14)
[2019-10-22] MEDS: IV 1/2NS 1000 ML 1,000 ML IV PRN ×2 (06:49→17:12)
--- NOTE | 2019-10-22 07:02 | NUR ---
Patient shows no signs or symptoms of distress at this time. Vital signs stable. Patient is NSR on the monitor. Patient endorsed to AM nurse in stable condition.
--- NOTE | 2019-10-22 07:20 | NUR ---
Received patient in bed awake, alert and oriented. On room air with no complaints of SOB or distress. On telemetry SR. IV site clean on left hand 20g running 1/2 NS @ 100 cc. No other complaints. Bed locked in lowest position with siderails 2x up. Patient stated that he could ambulate well to the bathroom. Call light within and cellphone within reach. will continue to monitor.
[2019-10-22 08:00] VITALS: BP 119/79
[2019-10-22 08:47] LABS: LIPASE 391 U/L (73-393)
[2019-10-22 09:03] LABS: TRIGLYCERIDES 1111 MG/DL (30-150)
[2019-10-22] MEDS: PANTOPRAZOLE SODIUM 40 MG VIAL IV SCH (09:10)
--- NOTE | 2019-10-22 15:00 | NUR ---
Pt kept asking dilaudid throughout the day q3H. Dr. Loredo ordered to DC dilaudid and order tramadol PO instead. Pt made aware, verbalized understanding. Pt able to tolerate lunch full liquid diet. Will continue to monitor.
[2019-10-22 16:45] VITALS: BP 126/80
--- NOTE | 2019-10-22 18:00 | NUR ---
Pt able to tolerate CCHO 60g diet. Per MD CHACON order, can go home in the afternoon, if patient can tolerate food. Pt made aware.
--- NOTE | 2019-10-22 19:00 | NUR ---
Informed and confirmed with Dr. Sadler of patient getting DC to home. said its okay.
--- NOTE | 2019-10-22 19:15 | NUR ---
Pt left unit ambulatory with no distress noted at this time, picked up by friend Christofer in the parking lot. DC instructions given and signed, verbalized understanding. Patient's belonging's list reviewed with pt and signed. IV on left hand and ID band removed.
[2019-10-22] MEDS ORDERED: TRAMADOL HCL 50 MG TABLET PO SCH (22:00)
== END 2019-10-22 19:15 | disposition home or self-care (01) | DRG 282 ==
LOC: ER 12:16 → CCU 19:11 → TELE3 20:10
PROVIDERS: ADMIT Internal Medicine; ATTEND Internal Medicine
DX: K85.90 Acute pancreatitis without necrosis or infection, unspecified (principal); E11.65 Type 2 diabetes mellitus with hyperglycemia; E83.42 Hypomagnesemia; K86.1 Other chronic pancreatitis; Z79.4 Long term (current) use of insulin; E78.1 Pure hyperglyceridemia
CPT/HCPCS: 36415; 70030-TC; 71045; 83550; 83690; 83735; 84100; 84478; 85025; 87400; 93005; A4663; C9113; G0378; J1170; J1650; J1815; J2405; J3475; J3490; J7030

== ENCOUNTER 2019-11-06 09:01 | Inpatient (IN) | payer MEDICAID, OTHER ==
[~2019-11-06] VITALS: Ht 188 cm; Wt 129.3 kg
[2019-11-06] MEDS ORDERED: HYDROMORPHONE 1 MG/1 ML DISP.SYRIN IV ONE ×2 (09:30→11:15)
[2019-11-06] MEDS ORDERED: IV NORMAL SALINE 1000 ML BAG IV ONE ×2 (09:30→10:45)
[2019-11-06] MEDS ORDERED: ONDANSETRON 4 MG/2 ML VIAL IV ONE ×2 (09:30→11:15)
[2019-11-06] MEDS ORDERED: HYDROMORPHONE 2 MG/1 ML DISP.SYRIN ONE ×2 (09:41→11:20)
[2019-11-06] MEDS ORDERED: ONDANSETRON 4 MG/2 ML VIAL ONE ×2 (09:41→11:20)
[2019-11-06 09:44] LABS: BASOPHILS % (AUTO) 0.7 % (0.0-2.0); EOSINOPHILS # (AUTO) 0.2 K/uL (0.0-0.7); EOSINOPHILS % (AUTO) 3.2 % (0.0-7.0); HEMATOCRIT 39.8 % (36.7-47.1); HEMOGLOBIN 14.4 g/dL (12.5-16.3); LYMPHOCYTES # (AUTO) 2.5 K/uL (20.0-40.0); LYMPHOCYTES % (AUTO) 36.6 % (20.5-51.5); MEAN CORPUSCULAR HEMOGLOBIN 30.4 uug (23.8-33.4); MEAN CORPUSCULAR HGB CONC 36 g/dL (32.5-36.3); MEAN CORPUSCULAR VOLUME 83.8 fL (73.0-96.2); MONOCYTES # (AUTO) 0.5 K/uL (2.0-10.0); MONOCYTES % (AUTO) 7.1 % (0.0-11.0); NEUTROPHILS # (AUTO) 3.6 K/uL (1.8-8.9); NEUTROPHILS % (AUTO) 52.4 % (38.5-71.5); PLATELET COUNT (AUTO) 206 K/uL (152-348); RED BLOOD CELL COUNT(AUTO) 4.74 MIL/uL (4.06-5.63)
[2019-11-06 09:58] LABS: *BILIRUBIN,URIN NEGATIVE (NEGATIVE); *BLOOD, URINE NEGATIVE (NEGATIVE); *CLARITY,URINE CLEAR (CLEAR); *COLOR,URINE YELLOW (YELLOW); *KETONES,URINE NEGATIVE (NEGATIVE); *UROBILINOGEN,URINE 0.2 E.U./dl (NORMAL); LEUKOCYTE ESTERASE ,URINE NEGATIVE (NEGATIVE); NITRITE, URINE NEGATIVE (NEGATIVE); PH,URINE 5.5 (5.0-8.0)
[2019-11-06 10:00] LABS: ALKALINE PHOSPHATASE 85 U/L (50-136); BILIRUBIN,DIRECT < 0.1 mg/dL (0.0-0.2); BILIRUBIN,TOTAL 0.7 mg/dL (0.2-1.0); CARBON DIOXIDE 23 mmol/L (21-32); CHLORIDE 94 mmol/L (98-107); CREATININE 1.2 mg/dL (0.6-1.3); LIPASE 292 U/L (73-393); POTASSIUM 3.8 mmol/L (3.5-5.1); TOTAL PROTEIN, SERUM 8.1 g/dL (6.4-8.2); UREA NITROGEN, BLOOD 11 mg/dL (7-18)
[2019-11-06 10:23] LABS: UGLUCOSE 2+ (NEGATIVE)
[2019-11-06 10:25] LABS: BACTERIA,URINE NONE SEEN /HPF (NONE SEEN); MUCUS,URINE FEW /LPF (0-FEW); RBC,URINE 0-3 /HPF (0-3); SQUAMOUS EPITHELIAL CELL,UR FEW /HPF (NONE SEEN); URINE AMORPHOUS URATE FEW /HPF; WBC,URINE 0-3 /HPF (0-3)
[2019-11-06 10:31] LABS: GLUCOSE 488 mg/dL (74-106)
[2019-11-06] MEDS ORDERED: INSULIN REGULAR, HUMAN 300 UNIT/3 ML VIAL IV ONE (10:45)
[2019-11-06] MEDS ORDERED: INSULIN LISPRO 300 UNIT/3 ML VIAL SQ ONE (10:47)
[2019-11-06 11:00] LABS: ALANINE AMINOTRANSFERASE 44 U/L (16-63); ASPARTATE AMINOTRANSFERASE 46 U/L (15-37)
[2019-11-06] MEDS ORDERED: INSULIN REGULAR, HUMAN 300 UNIT/3 ML VIAL ONE (11:00)
--- NOTE | 2019-11-06 11:27 | NUR ---
DR. JULIÁN HOPSON AT BEDSIDE.
[2019-11-06] MEDS ORDERED: IV NS 1000 ML 1,000 ML IV PRN (11:48)
--- NOTE | 2019-11-06 11:55 | NUR ---
34 year old male [id number] from er via wheel chair to room 327 ,pt is axox4.call light with in reach vs are stable orient the pt to room and surroundings
[2019-11-06 12:00] VITALS: BP 145/86
[2019-11-06] MEDS ORDERED: ONDANSETRON 4 MG/2 ML VIAL IV PRN (12:00)
--- NOTE | 2019-11-06 13:30 | NUR ---
INSTRUCTED THAT HE NEEDS TO BE ON AN INSULIN DRIP, THAT IS CCU STATUS. PATIENT REFUSING TO BE TRANSFERRED TO CCU. STATES THOSE PATIENTS ARE ALL COVID POSITIVE. INSTRUCTED THAT COVID PATIENTS ARE ALSO ON THIS FLOOR. PATIENT DOES NOT BELIEVE THIS.
--- NOTE | 2019-11-06 14:30 | NUR ---
MUNIRA AGUILAR FROM [place], ANA DIRECTOR OF MED. SURG. & LUCIA CHARGE NURSE ALL SPOKE WITH PATIENT. HE IS ABSOLUTELY NOT GOING TO CCU.
[2019-11-06] MEDS: HYDROMORPHONE 1 MG/1 ML DISP.SYRIN IV PRN ×3 (15:16→22:15)
[2019-11-06 16:00] VITALS: BP 124/67
--- NOTE | 2019-11-06 16:31 | NUR ---
PATIENT REFUSING ICU/CCU ADMISSION: Explained and educated patient that his current treatment for insulin gtt requires ICU/CCU level care. Patient is refusing ICU/CCU admission due to his anxieties regarding current COVID-19 pandemic and his knowledge of COVID-19 patients usually being housed in the ICU/CCU setting. He states that he does not want to contract COVID-19 and believes that being in the ICU/CCU setting will put him at higher risk. Education was provided by John Lebron, Machine Long Goods Helper, of risk of exposure and additional measures that we will implement to lower any such risk. Despite this education, he still refuses. We explained to him several times the risks of continuing his hospitalization in a lower level of care unit than necessary; still he refuses.
[2019-11-06] MEDS ORDERED: INSULIN REGULAR, HUMAN 100 UNIT in IV NORMAL SALINE 99 ML IV PRN ×2 (18:45)
--- NOTE | 2019-11-06 19:44 | NUR ---
Report received from garnett machine operator. as well as coronary care unit nurse, as reported for current lab glucose of 216 patient to be started on D51/2 Ns at 150cc/hr. and hold of insulin drip. with recheck of triglycerides in am. Dr. Arias called to be notified that insulin drip was never started. As reported.
[2019-11-06 20:00] VITALS: BP 115/69
[2019-11-06] MEDS: BLOOD SUGAR DIAGNOSTIC 1 EACH STRIP VI SCH ×5 (20:01→23:13)
[2019-11-06] MEDS: IV D5/ 0.9% NACL 1,000 ML IV PRN (20:04)
--- NOTE | 2019-11-06 22:15 | NUR ---
Note for pharmacy for the dilaudid administered at this time in the pixes it will show that 1mg was wasted with Cathy Velasquez as witness. I by mistake though the pixes was dispensing 2 mg and ordered was 1mg. and called for witness. Correct order is 2 mg dispensed in 1mg vial which required to pull 2 vial to make up a dose of 2mg. Mistake corrected discrepancy created and fixed. see pixes record.
[2019-11-07] VITALS: BP 118/66
--- NOTE | 2019-11-07 00:01 | NUR ---
BS less than 250 insulin drip stopped at orders.
[2019-11-07] MEDS: BLOOD SUGAR DIAGNOSTIC 1 EACH STRIP VI SCH ×7 (00:06→11:05)
--- NOTE | 2019-11-07 00:15 | NUR ---
Patient with c/of itchiness and insomnia, production machinist Olga srivastava called medication orders received and implemented.
[2019-11-07] MEDS ORDERED: diphenhydrAMINE 50 MG/1 ML VIAL IV PRN (00:30)
[2019-11-07] MEDS: HYDROMORPHONE 1 MG/1 ML DISP.SYRIN IV PRN ×3 (01:07→09:23)
[2019-11-07] MEDS: IV D5/ 0.9% NACL 1,000 ML IV PRN ×2 (02:40→09:06)
[2019-11-07 04:00] VITALS: BP 121/70
--- NOTE | 2019-11-07 05:36 | NUR ---
per adjustment supervisor's request, iron molder helper NAdonis Olga Richardson called and given report updating her on pt's stable blood glucose and she was also informed that patient was only for a couple of hours on insulin drip and for the last 5Hours patient blood sugar below 250 as suggested parameter for insulin drip. Orders to down-grade pt. to telemetry received and implemented. Addendum: 11/07/19 at 0543 by CHAD AYON RN Ervin informed of insulin drip order for hyper-tryglycerides.
[2019-11-07] MEDS ORDERED: DEXTROSE 50% 50 ML DISP.SYRIN IV PRN (06:00)
--- NOTE | 2019-11-07 06:01 | NUR ---
A call back to gun synchronizer Ervin Richardson to inquire for further accu-check orders. Orders received and implemented.
[2019-11-07 06:52] LABS: BASOPHILS % (AUTO) 0.3 % (0.0-2.0); EOSINOPHILS # (AUTO) 0.2 K/uL (0.0-0.7); EOSINOPHILS % (AUTO) 3.2 % (0.0-7.0); HEMATOCRIT 37.8 % (36.7-47.1); HEMOGLOBIN 12.8 g/dL (12.5-16.3); LYMPHOCYTES # (AUTO) 2.9 K/uL (20.0-40.0); LYMPHOCYTES % (AUTO) 38.9 % (20.5-51.5); MEAN CORPUSCULAR HEMOGLOBIN 28.4 uug (23.8-33.4); MEAN CORPUSCULAR HGB CONC 34 g/dL (32.5-36.3); MEAN CORPUSCULAR VOLUME 84.1 fL (73.0-96.2); MONOCYTES # (AUTO) 0.4 K/uL (2.0-10.0); MONOCYTES % (AUTO) 5.2 % (0.0-11.0); NEUTROPHILS # (AUTO) 3.9 K/uL (1.8-8.9); NEUTROPHILS % (AUTO) 52.4 % (38.5-71.5); PLATELET COUNT (AUTO) 182 K/uL (152-348); RED BLOOD CELL COUNT(AUTO) 4.49 MIL/uL (4.06-5.63); WHITE BLOOD COUNT (AUTO) 7.5 K/uL (3.6-10.2)
[2019-11-07 07:04] LABS: CREATININE 0.9 mg/dL (0.6-1.3); MAGNESIUM 1.6 mg/dL (1.8-2.4); PHOSPHOROUS 4.3 mg/dL (2.5-4.9); POTASSIUM 3.7 mmol/L (3.5-5.1)
[2019-11-07] MEDS ORDERED: PANTOPRAZOLE SODIUM 40 MG VIAL IV SCH (09:00)
[2019-11-07] MEDS: INSULIN REGULAR, HUMAN 300 UNIT/3 ML VIAL SQ PRN ×2 (09:20→12:03)
[2019-11-07] MEDS ORDERED: diphenhydrAMINE 50 MG CAPSULE PO PRN (10:30)
[2019-11-07] MEDS ORDERED: HYDROMORPHONE 2 MG/1 ML DISP.SYRIN IV PRN (11:15)
[2019-11-07 12:00] VITALS: BP 120/75
[2019-11-07] MEDS ORDERED: MAGNESIUM OXIDE 400 MG TABLET PO ONE (12:15)
[2019-11-07] MEDS ORDERED: PNEUMOCOCCAL 23-VAL P-SAC VAC 0.5 ML VIAL IM ONE (14:15)
--- NOTE | 2019-11-07 15:00 | NUR ---
patient was discharged. Safely left the hospital. IV removed, Pneumo vaccine administered, vitals stable, property returned and verified.
== END 2019-11-07 15:00 | disposition home or self-care (01) | DRG 282 ==
LOC: ER 09:01 → TELE3 11:21 → TELE-TD3 12:37 → TELE3 11-07 07:20 → MEDSURG3 11-07 11:25
DX: K85.80 Other acute pancreatitis without necrosis or infection (principal); E11.65 Type 2 diabetes mellitus with hyperglycemia; E66.9 Obesity, unspecified; F17.210 Nicotine dependence, cigarettes, uncomplicated; E78.1 Pure hyperglyceridemia; Z79.4 Long term (current) use of insulin; Z68.36 Body mass index [BMI] 36.0-36.9, adult
CPT/HCPCS: 36415; 70030-TC; 83690; 83735; 84100; 84478; 85025; 85730; 87086; 90732; 93005; A4663; C9113; G0378; J1170; J1200; J1815; J2405; J3490; J7030; J7042; Q0163

== ENCOUNTER 2019-12-14 12:52 | Inpatient (IN) | payer MEDICAID ==
[~2019-12-14] VITALS: Ht 188 cm; Wt 127.5 kg
[~2019-12-14 12:52] MED LIST changes: -GEMF600T PO; +GEMF600T5 PO; +HYDR-4384 PO; +INSU100V39 SQ; -METF-440 PO; +NIAC500T2 PO
--- NOTE | 2019-12-14 13:21 | NUR ---
pt is in room #2a. dr Valdez evaluated the pt.
[2019-12-14] MEDS ORDERED: PANTOPRAZOLE SODIUM 40 MG VIAL IV ONE (13:30)
[2019-12-14] MEDS ORDERED: HYDROMORPHONE 1 MG/1 ML DISP.SYRIN IV ONE ×4 (13:30→17:45)
[2019-12-14] MEDS ORDERED: IV NORMAL SALINE 1000 ML BAG IV ONE ×2 (13:30→17:45)
[2019-12-14] MEDS ORDERED: ONDANSETRON 4 MG/2 ML VIAL IV ONE ×2 (13:30→16:30)
[2019-12-14] MEDS ORDERED: PANTOPRAZOLE SODIUM 40 MG VIAL ONE (13:33)
[2019-12-14] MEDS ORDERED: HYDROMORPHONE 1 MG/1 ML DISP.SYRIN ONE ×4 (13:33→17:56)
[2019-12-14] MEDS ORDERED: ONDANSETRON 4 MG/2 ML VIAL ONE ×2 (13:33→16:13)
[2019-12-14 13:36] LABS: BASOPHILS % (AUTO) 0.5 % (0.0-2.0); EOSINOPHILS % (AUTO) 0.1 % (0.0-7.0); HEMATOCRIT 42.4 % (36.7-47.1); HEMOGLOBIN 14.9 g/dL (12.5-16.3); LYMPHOCYTES # (AUTO) 0.4 K/uL (20.0-40.0); LYMPHOCYTES % (AUTO) 6.9 % (20.5-51.5); MEAN CORPUSCULAR HEMOGLOBIN 29.5 uug (23.8-33.4); MEAN CORPUSCULAR HGB CONC 35 g/dL (32.5-36.3); MEAN CORPUSCULAR VOLUME 83.7 fL (73.0-96.2); MONOCYTES # (AUTO) 0.5 K/uL (2.0-10.0); MONOCYTES % (AUTO) 10.6 % (0.0-11.0); NEUTROPHILS # (AUTO) 4.2 K/uL (1.8-8.9); NEUTROPHILS % (AUTO) 81.9 % (38.5-71.5); PLATELET COUNT (AUTO) 173 K/uL (152-348); RED BLOOD CELL COUNT(AUTO) 5.06 MIL/uL (4.06-5.63); WHITE BLOOD COUNT (AUTO) 5.2 K/uL (3.6-10.2)
[2019-12-14 13:48] LABS: CREATININE 1.1 mg/dL (0.6-1.3); POTASSIUM 3.8 mmol/L (3.5-5.1)
[2019-12-14 13:53] LABS: BILIRUBIN,DIRECT 0.1 mg/dL (0.0-0.2); BILIRUBIN,TOTAL 0.9 mg/dL (0.2-1.0)
[2019-12-14 13:54] LABS: TOTAL PROTEIN, SERUM 8.4 g/dL (6.4-8.2)
[2019-12-14] MEDS ORDERED: INSULIN REGULAR, HUMAN 300 UNIT/3 ML VIAL IV ONE (18:15)
[2019-12-14 18:22] LABS: *BILIRUBIN,URIN 1+ (NEGATIVE); *BLOOD, URINE NEGATIVE (NEGATIVE); *CLARITY,URINE CLEAR (CLEAR); *COLOR,URINE Orange (YELLOW); *KETONES,URINE 1+ (NEGATIVE); *UROBILINOGEN,URINE 0.2 E.U./dl (NORMAL); LEUKOCYTE ESTERASE ,URINE NEGATIVE (NEGATIVE); NITRITE, URINE NEGATIVE (NEGATIVE); PH,URINE 5.5 (5.0-8.0); UGLUCOSE 3+ (NEGATIVE)
[2019-12-14 18:29] LABS: BACTERIA,URINE FEW /HPF (NONE SEEN); RBC,URINE 0-3 /HPF (0-3); SQUAMOUS EPITHELIAL CELL,UR FEW /HPF (NONE SEEN); WBC,URINE 0-3 /HPF (0-3)
[2019-12-14] MEDS ORDERED: HYDROCODONE/APAP 5-325MG TABLET PO PRN (19:00)
[2019-12-14] MEDS ORDERED: Z GUARD REMEDY PASTE 57 GM TUBE TOP PRN (19:00)
[2019-12-14] MEDS ORDERED: ONDANSETRON 4 MG/2 ML VIAL IV PRN (19:00)
[2019-12-14] MEDS ORDERED: DEXTROSE 50% 50 ML DISP.SYRIN IV PRN (19:00)
[2019-12-14] MEDS ORDERED: INSULIN REGULAR, HUMAN 300 UNITS/3 ML VIAL SQ PRN (19:00)
[2019-12-14] MEDS ORDERED: INSULIN REGULAR, HUMAN 300 UNIT/3 ML VIAL SQ PRN (19:00)
[2019-12-14] MEDS ORDERED: ACETAMINOPHEN 325 MG TABLET PO PRN (19:00)
[2019-12-14] MEDS ORDERED: TEMAZEPAM 15 MG CAPSULE PO PRN (19:00)
[2019-12-14] MEDS ORDERED: MAGNESIUM HYDROXIDE 30 ML LIQUID UDC PO PRN (19:00)
--- NOTE | 2019-12-14 19:02 | NUR ---
REPORT GIVEN TO HORSE AND WAGON DRIVER TERA GANN.
[2019-12-14] MEDS ORDERED: MORPHINE SULFATE 4 MG/1 ML DISP.SYRIN ONE (20:38)
[2019-12-14] MEDS: MORPHINE SULFATE 2 MG/1 ML DISP.SYRIN IV PRN ×2 (20:39→23:16)
[2019-12-14] MEDS: BLOOD SUGAR DIAGNOSTIC 1 EACH STRIP VI SCH (21:00)
[2019-12-14] MEDS ORDERED: INSULIN GLARGINE,HUM 300 UNITS/3 ML CARTRIDGE SQ SCH (21:00)
--- NOTE | 2019-12-14 21:46 | NUR ---
Report given Suri HALEY Medsurg.
--- NOTE | 2019-12-14 22:10 | NUR ---
Patient received via [employer]. Patient is awake and alertx4. Patient denies any acute distress. Patient complains of abdominal pain at 9/10, will give prescribed PRN pain medication. Patient has a temperature of 101.1, will provide cooling measures and monitor. Vitals are stable. Safety measures in place. Call light within reach. Will continue with the plan of care.
[2019-12-14 22:38] VITALS: BP 142/94
[2019-12-14] MEDS: GEMFIBROZIL 600 MG TABLET PO SCH (23:15)
[2019-12-14] MEDS: IV NS 1000 ML 1,000 ML IV PRN (23:31)
--- NOTE | 2019-12-15 00:46 | NUR ---
Patient's temperature is now 98. Patient is stable.
[2019-12-15] MEDS: MORPHINE SULFATE 2 MG/1 ML DISP.SYRIN IV PRN (05:22)
[2019-12-15 06:28] VITALS: BP 128/78
[2019-12-15] MEDS: BLOOD SUGAR DIAGNOSTIC 1 EACH STRIP VI SCH (06:43)
--- NOTE | 2019-12-15 07:10 | NUR ---
Patient slept intermittently throughout the night. Patient is sleeping, easy to arouse. Patient has no s/s of acute distress or pain at this time. Patient's vitals are stable. Patient was compliant with all prescribed medications during my shift. PRN pain medication was also given per patient's request. IV is patent and intact. Comfort care and needs attended. Safety measures in place. Call light within reach. Will endorse to the oncoming nurse accordingly.
--- NOTE | 2019-12-15 07:40 | NUR ---
Pt received awake, calm, A/O x 4. Pt is compliant with medications. Left upper arm IV is intact, running NS 125 cc/hr. No distress. Insulin 9 units was given as per sliding scale (266 accucheck).
[2019-12-15 07:50] LABS: BASOPHILS % (AUTO) 0.9 % (0.0-2.0); EOSINOPHILS % (AUTO) 0.2 % (0.0-7.0); HEMATOCRIT 38.3 % (36.7-47.1); HEMOGLOBIN 13.2 g/dL (12.5-16.3); LYMPHOCYTES # (AUTO) 0.8 K/uL (20.0-40.0); LYMPHOCYTES % (AUTO) 27.7 % (20.5-51.5); MEAN CORPUSCULAR HEMOGLOBIN 29.3 uug (23.8-33.4); MEAN CORPUSCULAR HGB CONC 35 g/dL (32.5-36.3); MEAN CORPUSCULAR VOLUME 84.8 fL (73.0-96.2); MONOCYTES # (AUTO) 0.5 K/uL (2.0-10.0); MONOCYTES % (AUTO) 15.2 % (0.0-11.0); NEUTROPHILS # (AUTO) 1.7 K/uL (1.8-8.9); PLATELET COUNT (AUTO) 150 K/uL (152-348); RED BLOOD CELL COUNT(AUTO) 4.51 MIL/uL (4.06-5.63)
[2019-12-15 07:57] LABS: CREATININE 1.1 mg/dL (0.6-1.3); MAGNESIUM 1.9 mg/dL (1.8-2.4); PHOSPHOROUS 3.7 mg/dL (2.5-4.9); POTASSIUM 3.9 mmol/L (3.5-5.1)
[2019-12-15] MEDS: IV NS 1000 ML 1,000 ML IV PRN (08:23)
[2019-12-15 10:05] LABS: LYMPHOCYTES % (MANUAL) 26 % (20-40); MONOCYTES % (MANUAL) 12 % (2-10); NEUTROPHILS % (MANUAL) 62 % (42-75)
[2019-12-15] MEDS ORDERED: HYDR-4354 PO (10:38)
[2019-12-15] MEDS ORDERED: MORPHINE SULFATE 4 MG/1 ML DISP.SYRIN IV PRN (10:45)
[2019-12-15] MEDS: GEMFIBROZIL 600 MG TABLET PO SCH (10:58)
--- NOTE | 2019-12-15 11:10 | NUR ---
Pt is being discharged home with new medications. Teaching in regards of his insulin was provided. Diet and exersise teaching provided as well. Pt states that there are Farsi speeking staff at the pharmacy that he uses. Pt verbalizes understanding, no distress.
[2019-12-15] MEDS ORDERED: INSULIN GLARGINE,HUM 300 UNITS/3 ML CARTRIDGE SQ SCH (21:00)
== END 2019-12-15 11:00 | disposition home or self-care (01) | DRG 241 ==
LOC: ER 12:57 → MEDSURG3 21:53
PROVIDERS: ADMIT Nurse Practitioner Acute Care; ATTEND Nurse Practitioner Acute Care
DX: K29.70 Gastritis, unspecified, without bleeding (principal); E10.65 Type 1 diabetes mellitus with hyperglycemia; E87.1 Hypo-osmolality and hyponatremia; E66.9 Obesity, unspecified; Z68.36 Body mass index [BMI] 36.0-36.9, adult; E78.1 Pure hyperglyceridemia; E86.1 Hypovolemia; Z87.891 Personal history of nicotine dependence; Z79.84 Long term (current) use of oral hypoglycemic drugs; Z79.4 Long term (current) use of insulin
CPT/HCPCS: 36415; 70030-TC; 70450; 71045; 83690; 83735; 84100; 85025; 93005; A4663; C9113; G0378; J1170; J1815; J2270; J2405; J7030

== ENCOUNTER 2020-02-07 09:47 | Inpatient (IN) | payer MEDICAID ==
[~2020-02-07] VITALS: Ht 188 cm; Wt 129.3 kg
[~2020-02-07 09:47] MED LIST changes: +HYDR-4354 PO
[2020-02-07] MEDS ORDERED: ONDANSETRON 4 MG/2 ML VIAL IV ONE (10:00)
[2020-02-07] MEDS ORDERED: IV NORMAL SALINE 1000 ML BAG IV ONE ×2 (10:00→11:15)
[2020-02-07] MEDS ORDERED: HYDROMORPHONE 1 MG/1 ML DISP.SYRIN IV ONE ×2 (10:00→11:30)
[2020-02-07] MEDS ORDERED: ONDANSETRON 4 MG/2 ML VIAL ONE (10:12)
[2020-02-07] MEDS ORDERED: HYDROMORPHONE 1 MG/1 ML DISP.SYRIN ONE ×2 (10:12→11:31)
[2020-02-07] MEDS ORDERED: MAG HYDROX/AL HYDROX/SIMETH 30 ML LIQUID UDC ONE (11:09)
[2020-02-07] MEDS ORDERED: MAG HYDROX/AL HYDROX/SIMETH 30 ML LIQUID UDC PO ONE (11:15)
[2020-02-07 11:16] LABS: CARBON DIOXIDE 21 mmol/L (21-32); CHLORIDE 94 mmol/L (98-107); POTASSIUM 4.3 mmol/L (3.5-5.1); UREA NITROGEN, BLOOD 15 mg/dL (7-18)
[2020-02-07 11:19] LABS: GLUCOSE 477 mg/dL (74-106)
[2020-02-07 11:22] LABS: ALANINE AMINOTRANSFERASE 31 U/L (16-63); ALKALINE PHOSPHATASE 80 U/L (50-136); ASPARTATE AMINOTRANSFERASE 45 U/L (15-37); BILIRUBIN,DIRECT < 0.1 mg/dL (0.0-0.2); BILIRUBIN,TOTAL 0.5 mg/dL (0.2-1.0); LIPASE 160 U/L (73-393)
[2020-02-07 11:26] LABS: RED BLOOD CELL COUNT(AUTO) 4.36 MIL/UL (4.7-6.1); WHITE BLOOD COUNT (AUTO) 3.2 K/UL (4.0-11.2)
[2020-02-07 11:28] LABS: HEMATOCRIT 36.3 % (40-50); HEMOGLOBIN 12.1 G/DL (14.0-18.0); MEAN CORPUSCULAR HEMOGLOBIN 27.7 UUG (27.0-31.0); MEAN CORPUSCULAR HGB CONC 33 g/dL (32.0-37.0); MEAN CORPUSCULAR VOLUME 83.1 FL (82.0-92.0); PLATELET COUNT (AUTO) 170 K/UL (150-450)
[2020-02-07 11:29] LABS: EOSINOPHILS # (AUTO) 0.1 K/uL (0.0-0.7); MONOCYTES # (AUTO) 0.2 K/UL (0.1-1.30); NEUTROPHILS # (AUTO) 1.8 K/UL (1.8-8.9)
[2020-02-07] MEDS ORDERED: INSULIN REGULAR, HUMAN 300 UNIT/3 ML VIAL SQ ONE (11:30)
[2020-02-07] MEDS ORDERED: INSULIN REGULAR, HUMAN 300 UNIT/3 ML VIAL ONE (11:31)
--- NOTE | 2020-02-07 12:57 | NUR ---
Jc cortez in [facility] - 02/07/[email or web address].
--- NOTE | 2020-02-07 12:57 | NUR ---
Patient is still c/o abdominal pains, Dr [email or web address].
[2020-02-07] MEDS ORDERED: ONDANSETRON 4 MG/2 ML VIAL IV PRN (13:30)
[2020-02-07] MEDS ORDERED: DEXTROSE 50% 50 ML DISP.SYRIN IV PRN (13:45)
--- NOTE | 2020-02-07 14:09 | NUR ---
Patient is resting comfortably on gurney while intermittently using his personal electronic device, NAD, no diarrhea or vomiting episodes seen since arrival in ER.
--- NOTE | 2020-02-07 14:09 | NUR ---
"COVID-19= negative " per lab staff Sarah. Patient can now go to 3rd floor med-surgical floor. ER registration staff Vikram notified to "roll over" patient's status from ER patient to inpatient status.
[2020-02-07] MEDS: HYDROMORPHONE 1 MG/1 ML DISP.SYRIN IV PRN ×3 (14:33→22:59)
--- NOTE | 2020-02-07 14:40 | NUR ---
ADMITTED TO MED SURG FLOOR UNDER THE CARE OF DR. JULIÁN MIRAMONTES. PATIENT ALERT ORIENTED, NO SOB NO CHEST PAIN, COMPLAIN OF ABDOMINAL PAIN. PATIENT AMBULATORY CONTINENT. CONT TO MONITOR.
--- NOTE | 2020-02-07 14:40 | NUR ---
Hands off report given to TERA Alexander re: recent IV Dilaudid given@1433pm.
[2020-02-07 15:04] VITALS: BP 134/82
[2020-02-07] MEDS: IV D5 1/2 NS 1000 ML 1,000 ML IV PRN (16:21)
[2020-02-07] MEDS: BLOOD SUGAR DIAGNOSTIC 1 EACH STRIP VI SCH ×2 (16:37→20:31)
[2020-02-07] MEDS: INSULIN REGULAR, HUMAN 300 UNIT/3 ML VIAL SQ PRN ×2 (16:40→20:36)
--- NOTE | 2020-02-07 18:13 | NUR ---
PATIENT ALERT ORIENTED, NO SOB NO CHEST PAIN, WITH TOLERABLE ABDOMINAL PAIN. PATIENT HAS NO S/S OF HYPO/HYPERGLYCEMIA NOTED, PATIENT IN BED RESTING, CALL LIGHT WITHIN REACH.
[2020-02-07 21:20] VITALS: BP 123/80
[2020-02-08] VITALS (13 sets, daily range): BP systolic 108–164; BP diastolic 63–85
[2020-02-08] MEDS: BLOOD SUGAR DIAGNOSTIC 1 EACH STRIP VI SCH ×16 (00:02→23:54)
[2020-02-08] MEDS: IV D5 1/2 NS 1000 ML 1,000 ML IV PRN ×4 (00:15→21:19)
[2020-02-08] MEDS: INSULIN REGULAR, HUMAN 300 UNIT/3 ML VIAL SQ PRN ×4 (00:17→11:36)
--- NOTE | 2020-02-08 00:21 | NUR ---
patient reported he is not able to sleep due to discomfortable feeling. dr. toro contacted. orders received for ambien 5mg po at night PRN. will administer and follow up with patient.
[2020-02-08] MEDS: ZOLPIDEM 5 MG TABLET PO PRN ×2 (00:35→21:04)
[2020-02-08 05:46] LABS: BASOPHILS % (AUTO) 0.6 % (0.0-2.0); EOSINOPHILS # (AUTO) 0.1 K/uL (0.0-0.7); EOSINOPHILS % (AUTO) 1.9 % (0.0-7.0); HEMATOCRIT 38.2 % (36.7-47.1); HEMOGLOBIN 13.8 g/dL (12.5-16.3); LYMPHOCYTES # (AUTO) 2.3 K/uL (20.0-40.0); LYMPHOCYTES % (AUTO) 42.1 % (20.5-51.5); MEAN CORPUSCULAR HEMOGLOBIN 29.6 uug (23.8-33.4); MEAN CORPUSCULAR HGB CONC 36 g/dL (32.5-36.3); MEAN CORPUSCULAR VOLUME 82.2 fL (73.0-96.2); MONOCYTES # (AUTO) 0.3 K/uL (2.0-10.0); MONOCYTES % (AUTO) 6.3 % (0.0-11.0); NEUTROPHILS # (AUTO) 2.7 K/uL (1.8-8.9); NEUTROPHILS % (AUTO) 49.1 % (38.5-71.5); PLATELET COUNT (AUTO) 194 K/uL (152-348); RED BLOOD CELL COUNT(AUTO) 4.65 MIL/uL (4.06-5.63); WHITE BLOOD COUNT (AUTO) 5.5 K/uL (3.6-10.2)
[2020-02-08 06:07] LABS: CREATININE 0.9 mg/dL (0.6-1.3); MAGNESIUM 1.8 mg/dL (1.8-2.4); PHOSPHOROUS 3.4 mg/dL (2.5-4.9); POTASSIUM 3.7 mmol/L (3.5-5.1)
--- NOTE | 2020-02-08 07:50 | NUR ---
awake alert and oriented, resting in bed, states has abdominal pain 9/10-medicated with Dilaudid 1mg iv as ordered prn, on room air, denies of shortness of breath, kept npo as ordered, denies of nausea and vomiting, explained plan of care- verbalized understanding, safety measures maintained, call light within reach
[2020-02-08] MEDS: HYDROMORPHONE 1 MG/1 ML DISP.SYRIN IV PRN ×4 (07:53→20:12)
--- NOTE | 2020-02-08 08:00 | NUR ---
accucheck done and covered wisth RI sq as per protocol, instructions given on hypo/hyperglycemic symptoms- verbalized understanding
[2020-02-08] MEDS: PANTOPRAZOLE SODIUM 40 MG VIAL IV SCH (08:01)
[2020-02-08] MEDS ORDERED: INSULIN REGULAR, HUMAN 100 UNIT in IV NORMAL SALINE 99 ML IV PRN ×2 (12:30)
--- NOTE | 2020-02-08 12:30 | NUR ---
seen by Dr Casarez- triglycerides today 2361 compared from 1156 yesterday, pt to be on insulin drip, to be transferred to ICU
--- NOTE | 2020-02-08 13:20 | NUR ---
report given to LABORER FRYER FARM, transferred per w/c with all belongings
--- NOTE | 2020-02-08 13:22 | NUR ---
RECEIVED PATIENT FROM MED-SURG FLOOR. PATIENT ALERT AND ORIENTED X4, SR ON THE MONITOR, NO S/S OF RESPIRATORY DISTRESS.
[2020-02-08] MEDS ORDERED: ACETAMINOPHEN 325 MG TABLET PO PRN (20:00)
[2020-02-08] MEDS ORDERED: hydrALAZINE HCL 10 MG TABLET PO PRN ×2 (20:00)
[2020-02-08] MEDS ORDERED: hydrALAZINE HCL 10 MG TABLET ONE (20:53)
[2020-02-08] MEDS: ACETAMINOPHEN 325 MG TABLET PO PRN (21:04)
[2020-02-08] MEDS: IV NORMAL SALINE 250 ML IV PRN (22:09)
[2020-02-09] VITALS (23 sets, daily range): BP systolic 95–156; BP diastolic 46–93
[2020-02-09] MEDS: HYDROMORPHONE 1 MG/1 ML DISP.SYRIN IV PRN ×6 (00:02→20:10)
[2020-02-09] MEDS: BLOOD SUGAR DIAGNOSTIC 1 EACH STRIP VI SCH ×23 (01:15→23:03)
[2020-02-09] MEDS: IV D5 1/2 NS 1000 ML 1,000 ML IV PRN ×3 (04:22→19:48)
[2020-02-09 05:16] LABS: BILIRUBIN,TOTAL 0.6 mg/dL (0.2-1.0); CREATININE 0.9 mg/dL (0.6-1.3); MAGNESIUM 1.7 mg/dL (1.8-2.4); PHOSPHOROUS 3.4 mg/dL (2.5-4.9); POTASSIUM 3.6 mmol/L (3.5-5.1)
[2020-02-09 05:17] LABS: BASOPHILS # (AUTO) 0.1 K/uL (0.0-8.0); BASOPHILS % (AUTO) 0.8 % (0.0-2.0); EOSINOPHILS # (AUTO) 0.2 K/uL (0.0-0.7); EOSINOPHILS % (AUTO) 3.1 % (0.0-7.0); HEMATOCRIT 38.4 % (36.7-47.1); HEMOGLOBIN 13.5 g/dL (12.5-16.3); LYMPHOCYTES % (AUTO) 46.4 % (20.5-51.5); MEAN CORPUSCULAR HEMOGLOBIN 28.8 uug (23.8-33.4); MEAN CORPUSCULAR HGB CONC 35 g/dL (32.5-36.3); MEAN CORPUSCULAR VOLUME 81.7 fL (73.0-96.2); MONOCYTES # (AUTO) 0.5 K/uL (2.0-10.0); MONOCYTES % (AUTO) 7.3 % (0.0-11.0); NEUTROPHILS # (AUTO) 2.7 K/uL (1.8-8.9); NEUTROPHILS % (AUTO) 42.4 % (38.5-71.5); PLATELET COUNT (AUTO) 189 K/uL (152-348); WHITE BLOOD COUNT (AUTO) 6.4 K/uL (3.6-10.2)
[2020-02-09] MEDS ORDERED: hydrALAZINE HCL 10 MG TABLET PO ONE (07:12)
[2020-02-09] MEDS: PANTOPRAZOLE SODIUM 40 MG VIAL IV SCH (08:06)
[2020-02-09] MEDS: MAGNESIUM SULFATE/D5W 100 ML IV SCH ×2 (10:37→11:56)
--- NOTE | 2020-02-09 12:30 | NUR ---
Attending Dr. Arias in the unit, full report given to Dr. Arias. See order history for new orders. Dr. Arias at bedside discussing plan of care with patient.
[2020-02-09] MEDS: ACETAMINOPHEN 325 MG TABLET PO PRN (19:01)
--- NOTE | 2020-02-09 19:20 | NUR ---
ALERT ORIENT NO SOB NO CHEST PAIN, TELE MONITOR SINUS RHYTHM. PATIENT STILL HAS EPISODE OF ABDOMINAL PAIN, CONT ON PAIN MANAGEMENT, CONTINENT OF BOWEL AND BLADDER, VOIDING WITH YELLOW COLOR URINE IN MODERATE AMOUNT, NO S/S OF HYPO/HYPERGYLCEMIA NOTED, CONT TO MONITOR.
[2020-02-09] MEDS: ZOLPIDEM 5 MG TABLET PO PRN (21:01)
[2020-02-09] MEDS: IV NORMAL SALINE 250 ML IV PRN (21:20)
[2020-02-10] VITALS (8 sets, daily range): BP systolic 126–153; BP diastolic 62–91
[2020-02-10] MEDS: BLOOD SUGAR DIAGNOSTIC 1 EACH STRIP VI SCH ×12 (00:01→11:02)
[2020-02-10] MEDS: HYDROMORPHONE 1 MG/1 ML DISP.SYRIN IV PRN ×3 (00:03→08:06)
[2020-02-10] MEDS: IV D5 1/2 NS 1000 ML 1,000 ML IV PRN ×2 (02:06→10:04)
[2020-02-10 05:13] LABS: CREATININE 0.9 mg/dL (0.6-1.3); PHOSPHOROUS 3.7 mg/dL (2.5-4.9); POTASSIUM 3.4 mmol/L (3.5-5.1)
--- NOTE | 2020-02-10 07:30 | NUR ---
Received pt in bed asleep but arousable to name, AOx4 on RA with no SOB or distress noted at this time. On tele SR denied chest pain. Complained of left upper abdomen pain, continue pain mgt. On insulin drip and accucheck Q1H, no signs and symptoms of hyperglycemia nor hypoglycemia. Continent with urinal at bedside. Bed locked in lowest position with siderails 2x up. Call light and phone within reach. Will monitor
[2020-02-10] MEDS: PANTOPRAZOLE SODIUM 40 MG VIAL IV SCH (08:06)
--- NOTE | 2020-02-10 08:30 | NUR ---
Pt stated that he needs to make a bowel movement. Supplied bedside commode, but refused to use it. Did not make bowel movement
--- NOTE | 2020-02-10 10:38 | NUR ---
Reassigned patient to [facility]. Report given
--- NOTE | 2020-02-10 10:38 | NUR ---
Pt reassignment and full SBAR report received by TERA Jensen.
--- NOTE | 2020-02-10 11:18 | NUR ---
Dr. Arias here to see pt. Full report given. New orders received. Pt to be discharged back to home.
--- NOTE | 2020-02-10 12:19 | NUR ---
Pt discharged home. Discharge instructions and prescription discussed and provided to pt. Pt verbalized understanding of discharge instructions and prescriptions. PIV's removed. Belongings sheet reviewed and signed. Pt stable and nad noted upon discharge.
== END 2020-02-10 12:20 | disposition home or self-care (01) | DRG 282 ==
LOC: ER 09:47 → MEDSURG3 14:24 → CCU 02-08 13:35
DX: K85.80 Other acute pancreatitis without necrosis or infection (principal); E11.65 Type 2 diabetes mellitus with hyperglycemia; E78.1 Pure hyperglyceridemia; Z79.4 Long term (current) use of insulin; D72.819 Decreased white blood cell count, unspecified; E66.9 Obesity, unspecified; E78.5 Hyperlipidemia, unspecified; F17.210 Nicotine dependence, cigarettes, uncomplicated; I10 Essential (primary) hypertension; Z68.36 Body mass index [BMI] 36.0-36.9, adult
CPT/HCPCS: 36415; 83690; 83735; 84100; 84478; 85025; A4663; C9113; G0378; J1170; J1815; J2405; J3475; J3490; J7030; J7050

== ENCOUNTER 2020-02-12 00:47 | Inpatient (IN) | payer MEDICAID ==
[~2020-02-12] VITALS: Ht 188 cm; Wt 129.3 kg
[~2020-02-12 00:47] MED LIST changes: -HYDR-4354 PO; -NIAC500T2 PO
--- NOTE | 2020-02-12 01:10 | NUR ---
Dr. Abreu at bedside for MSE.
[2020-02-12] MEDS ORDERED: ONDANSETRON 4 MG/2 ML VIAL IV ONE (01:15)
[2020-02-12] MEDS ORDERED: HYDROMORPHONE 1 MG/1 ML DISP.SYRIN IV ONE ×3 (01:15→05:00)
[2020-02-12] MEDS ORDERED: IV NORMAL SALINE 1000 ML BAG IV ONE ×2 (01:15→03:00)
[2020-02-12] MEDS ORDERED: HYDROMORPHONE 1 MG/1 ML DISP.SYRIN ONE ×3 (01:25→04:57)
[2020-02-12] MEDS ORDERED: ONDANSETRON 4 MG/2 ML VIAL ONE (01:25)
[2020-02-12 01:32] LABS: BASOPHILS % (AUTO) 0.7 % (0.0-2.0); EOSINOPHILS # (AUTO) 0.2 K/uL (0.0-0.7); EOSINOPHILS % (AUTO) 2.7 % (0.0-7.0); HEMATOCRIT 40.6 % (36.7-47.1); HEMOGLOBIN 14.4 g/dL (12.5-16.3); LYMPHOCYTES # (AUTO) 2.6 K/uL (20.0-40.0); LYMPHOCYTES % (AUTO) 40.2 % (20.5-51.5); MEAN CORPUSCULAR HEMOGLOBIN 29.3 uug (23.8-33.4); MEAN CORPUSCULAR HGB CONC 35 g/dL (32.5-36.3); MEAN CORPUSCULAR VOLUME 82.6 fL (73.0-96.2); MONOCYTES # (AUTO) 0.5 K/uL (2.0-10.0); MONOCYTES % (AUTO) 7.3 % (0.0-11.0); NEUTROPHILS # (AUTO) 3.1 K/uL (1.8-8.9); NEUTROPHILS % (AUTO) 49.1 % (38.5-71.5); PLATELET COUNT (AUTO) 228 K/uL (152-348); RED BLOOD CELL COUNT(AUTO) 4.92 MIL/uL (4.06-5.63); WHITE BLOOD COUNT (AUTO) 6.4 K/uL (3.6-10.2)
[2020-02-12 01:36] LABS: POTASSIUM 3.7 mmol/L (3.5-5.1)
[2020-02-12 01:42] LABS: BILIRUBIN,DIRECT 0.1 mg/dL (0.0-0.2); BILIRUBIN,TOTAL 0.8 mg/dL (0.2-1.0); TOTAL PROTEIN, SERUM 8.3 g/dL (6.4-8.2)
[2020-02-12 01:51] LABS: CHOLESTEROL 287 mg/dL (<200); HDL CHOLESTEROL 30 mg/dL (40-60); TRIGLYCERIDES 1290 MG/DL (30-150)
[2020-02-12] MEDS ORDERED: IV NS 1000 ML 1,000 ML IV PRN (02:09)
[2020-02-12] MEDS ORDERED: ONDANSETRON 4 MG/2 ML VIAL IV PRN (02:15)
[2020-02-12] MEDS ORDERED: TEMAZEPAM 15 MG CAPSULE PO PRN (02:15)
[2020-02-12] MEDS ORDERED: Z GUARD REMEDY PASTE 57 GM TUBE TOP PRN (02:15)
[2020-02-12] MEDS ORDERED: MAGNESIUM HYDROXIDE 30 ML LIQUID UDC PO PRN (02:15)
[2020-02-12] MEDS ORDERED: DEXTROSE 50% 50 ML DISP.SYRIN IV PRN (02:15)
[2020-02-12] MEDS ORDERED: ACETAMINOPHEN 325 MG TABLET PO PRN (02:15)
--- NOTE | 2020-02-12 02:30 | NUR ---
COVID 19 ANTIGEN SWAB done, sent to lab.
--- NOTE | 2020-02-12 02:38 | NUR ---
3rd floor charge nurse aware that pt is ready to be admitted M/S room 323, pending COVID 19 test result. Will give report once results are in.
[2020-02-12] MEDS ORDERED: METOCLOPRAMIDE HCL 10 MG/2 ML VIAL IV ONE (03:00)
[2020-02-12] MEDS ORDERED: diphenhydrAMINE 50 MG/1 ML VIAL IV ONE (03:00)
[2020-02-12] MEDS ORDERED: METOCLOPRAMIDE HCL 10 MG/2 ML VIAL ONE (03:10)
[2020-02-12] MEDS ORDERED: diphenhydrAMINE 50 MG/1 ML VIAL ONE (03:10)
--- NOTE | 2020-02-12 05:38 | NUR ---
COVID TEST RESULT (-). Report given to Rosa HALEY, will rollover patient at this time.
--- NOTE | 2020-02-12 06:13 | NUR ---
Transported to Room 325 via wheelchair. Patient stable during transport. All belongings accounted for and with patient. Admitted to [facility]. Dx: Intractable Abdominal Pain under Karthik Nolasco DNP. Warm handoff to RN/INSURANCE HEALTHCARE CONSULTANT assigned.
--- NOTE | 2020-02-12 06:15 | NUR ---
patient arrived from the ER via gurney. AAOX4. In no acute distress. IV site on left AC intact and patent. IVF started. Protonix PO given and FSBS taken =171mg/dl. VS taken by CLOTILDE Vann. Pt comfortable in bed. Will give report to day shift nurse to complete admission process.
[2020-02-12 06:27] VITALS: BP 141/84
[2020-02-12] MEDS: BLOOD SUGAR DIAGNOSTIC 1 EACH STRIP VI SCH ×2 (06:39→11:29)
[2020-02-12] MEDS ORDERED: PANTOPRAZOLE SODIUM 40 MG TABLET.DR PO SCH (07:00)
[2020-02-12] MEDS: HYDROMORPHONE 1 MG/1 ML DISP.SYRIN IV PRN ×2 (08:48→12:48)
[2020-02-12] MEDS: INSULIN REGULAR, HUMAN 300 UNIT/3 ML VIAL SQ PRN ×2 (08:54→12:28)
[2020-02-12] MEDS ORDERED: GEMFIBROZIL 600 MG TABLET PO SCH (09:00)
--- NOTE | 2020-02-12 09:17 | NUR ---
received pt. resting in bed alert oriented x3. pt. is farsi speaking with little luxembourgish. IV in L hand 18 gauge intact patent running prescribed fluid. pt. on room air saturating well. pt. complaining of 10/10 pain on left side of abdomen that increased after eating. will provide pt. with PRN pain medication and continue to monitor pt. safety measures in place. call light within reach. will continue to monitor pt.
[2020-02-12 11:49] VITALS: BP 121/72
--- NOTE | 2020-02-12 14:04 | NUR ---
pt. discharged home picked up by livia jacobs RN aware. IV removed. ID band removed. all discharge paperwork signed and with patient. all belongings with pt. pt. in stable condition. pt. walked downstairs.
== END 2020-02-12 14:00 | disposition home or self-care (01) | DRG 282 ==
LOC: ER 00:50 → MEDSURG3 05:56
DX: K85.90 Acute pancreatitis without necrosis or infection, unspecified (principal); R10.9 Unspecified abdominal pain; E11.65 Type 2 diabetes mellitus with hyperglycemia; E78.1 Pure hyperglyceridemia; E66.9 Obesity, unspecified; E78.5 Hyperlipidemia, unspecified; F17.210 Nicotine dependence, cigarettes, uncomplicated; Z76.5 Malingerer [conscious simulation]; Z79.4 Long term (current) use of insulin; Z91.14 Patient's other noncompliance with medication regimen
CPT/HCPCS: 36415; 83690; 85025; 85730; A4663; G0378; J1170; J1200; J1815; J2405; J2765; J7030

== ENCOUNTER 2020-03-02 21:43 | Emergency (ER) | payer MEDICAID ==
[~2020-03-02] VITALS: Ht 188 cm; Wt 129.3 kg
--- NOTE | 2020-03-02 21:50 | NUR ---
Dr. Huber at bedside for MSE.
[2020-03-02] MEDS ORDERED: SULFAMETH/TRIMETH 800/160 MG TABLET PO ONE (22:00)
[2020-03-02] MEDS ORDERED: SULFAMETH/TRIMETH 800/160 MG TABLET ONE (22:01)
--- NOTE | 2020-03-02 22:02 | NUR ---
Patient is cleared to be discharged to home. Written and verbal after care instructions given. Emphasized importance of finishing the antibiotics, as ordered. Patient verbalizes understanding of instructions. Stressed follow up with PMD or return to ER for worsening s/s. Ambulated out of ER in steady gait and stable condition.
[2020-03-02 22:05] VITALS: BP 150/70
== END 2020-03-02 22:10 | disposition home or self-care (01) ==
LOC: ER 21:45
DX: S80.862A Insect bite (nonvenomous), left lower leg, initial encounter (principal); S80.861A Insect bite (nonvenomous), right lower leg, initial encounter; L08.9 Local infection of the skin and subcutaneous tissue, unspecified; W57.XXXA Bitten or stung by nonvenomous insect and other nonvenomous arthropods, initial encounter; Y92.89 Other specified places as the place of occurrence of the external cause; E11.9 Type 2 diabetes mellitus without complications; Z79.4 Long term (current) use of insulin; E66.9 Obesity, unspecified; F17.200 Nicotine dependence, unspecified, uncomplicated; E78.5 Hyperlipidemia, unspecified; Z68.36 Body mass index [BMI] 36.0-36.9, adult
CPT/HCPCS: A4663

== ENCOUNTER 2020-03-19 12:50 | Emergency (ER) | payer MEDICAID, OTHER ==
[~2020-03-19] VITALS: Ht 185.4 cm; Wt 129.3 kg
[2020-03-19] MEDS ORDERED: INSULIN REGULAR, HUMAN 300 UNIT/3 ML VIAL ONE (13:22)
[2020-03-19] MEDS ORDERED: INSULIN REGULAR, HUMAN 300 UNIT/3 ML VIAL SQ ONE (13:30)
--- NOTE | 2020-03-19 13:35 | NUR ---
pt gale did not have lunch yet. [facility] provided for pt.
--- NOTE | 2020-03-19 14:24 | NUR ---
Patient discharged to home in stable condition. Written and verbal after care instructions given. Patient verbalizes understanding of instructions. Stressed follow up or return to ER for worsening s/s. pt walks in stready gait. pt deneis any headache,n/v or dizziness.
[2020-03-19 14:27] VITALS: BP 141/88
== END 2020-03-19 14:27 | disposition home or self-care (01) ==
LOC: ER 12:50
DX: S20.369A Insect bite (nonvenomous) of unspecified front wall of thorax, initial encounter (principal); W57.XXXA Bitten or stung by nonvenomous insect and other nonvenomous arthropods, initial encounter; Y92.89 Other specified places as the place of occurrence of the external cause; L29.9 Pruritus, unspecified; E11.65 Type 2 diabetes mellitus with hyperglycemia; Z79.4 Long term (current) use of insulin; E78.5 Hyperlipidemia, unspecified; F17.200 Nicotine dependence, unspecified, uncomplicated; E66.9 Obesity, unspecified; Z68.37 Body mass index [BMI] 37.0-37.9, adult
CPT/HCPCS: 82962 ×2; 96372; 99283; J1815; A4663

== ENCOUNTER 2020-05-22 10:25 | Emergency (ER) | payer OTHER ==
[~2020-05-22] VITALS: Ht 188 cm; Wt 129.3 kg
[2020-05-22] MEDS ORDERED: IV NORMAL SALINE 1000 ML BAG IV ONE ×3 (10:45→16:45)
[2020-05-22] MEDS ORDERED: ONDANSETRON 4 MG/2 ML VIAL IV ONE ×2 (10:45→16:45)
[2020-05-22 10:55] LABS: *BILIRUBIN,URIN NEGATIVE (NEGATIVE); *BLOOD, URINE NEGATIVE (NEGATIVE); *CLARITY,URINE CLEAR (CLEAR); *COLOR,URINE YELLOW (YELLOW); *KETONES,URINE TRACE (NEGATIVE); *UROBILINOGEN,URINE 0.2 E.U./dl (NORMAL); LEUKOCYTE ESTERASE ,URINE NEGATIVE (NEGATIVE); NITRITE, URINE NEGATIVE (NEGATIVE); PH,URINE 5.5 (5.0-8.0); UGLUCOSE 2+ (NEGATIVE)
[2020-05-22] MEDS ORDERED: MORPHINE SULFATE 4 MG/1 ML DISP.SYRIN IV ONE ×2 (11:00→12:15)
[2020-05-22] MEDS ORDERED: ONDANSETRON 4 MG/2 ML VIAL ONE ×2 (11:03→17:18)
[2020-05-22] MEDS ORDERED: MORPHINE SULFATE 4 MG/1 ML DISP.SYRIN ONE (11:03)
--- NOTE | 2020-05-22 11:17 | NUR ---
PT DOES NOT REMEMBER EXACT HOME MEDICATION NAMES AND DOSES.
[2020-05-22 11:19] LABS: *AMPHETAMINE, URINE NEGATIVE (NEGATIVE); *CANNABINOID, URINE NEGATIVE (NEGATIVE); *COCCAINE, URINE NEGATIVE (NEGATIVE); *OPIATE, URINE NEGATIVE (NEGATIVE); *PHENCYCLIDINE SCREEN,URINE NEGATIVE (NEGATIVE)
--- NOTE | 2020-05-22 11:25 | NUR ---
Receved pt 34 male from home walking in c/o abdominal pain 6-8/10 since last night hx diabetes . suger was over 400 at home voding more then x20 time and vomiting [address]LUTSKY TANG UA SENT TO LAB INSERTED ANGO catheter # 20 blood drow by nurse rn
[2020-05-22 11:51] LABS: EOSINOPHILS # (AUTO) 0.1 K/uL (0.0-0.7); EOSINOPHILS % (AUTO) 1.8 % (0.0-7.0); LYMPHOCYTES # (AUTO) 1.6 K/uL (20.0-40.0); LYMPHOCYTES % (AUTO) 34.4 % (20.5-51.5); MEAN CORPUSCULAR HEMOGLOBIN 29.7 uug (23.8-33.4); MEAN CORPUSCULAR HGB CONC 36 g/dL (32.5-36.3); MEAN CORPUSCULAR VOLUME 83.6 fL (73.0-96.2); MONOCYTES # (AUTO) 0.3 K/uL (2.0-10.0); MONOCYTES % (AUTO) 6.3 % (0.0-11.0); NEUTROPHILS # (AUTO) 2.7 K/uL (1.8-8.9); NEUTROPHILS % (AUTO) 56.5 % (38.5-71.5); PLATELET COUNT (AUTO) 245 K/uL (152-348); RED BLOOD CELL COUNT(AUTO) 4.67 MIL/uL (4.06-5.63); WHITE BLOOD COUNT (AUTO) 4.8 K/uL (3.6-10.2)
[2020-05-22 11:56] LABS: HEMOGLOBIN 13.9 g/dL (12.5-16.3)
[2020-05-22 12:09] LABS: POTASSIUM 4.2 mmol/L (3.5-5.1)
[2020-05-22 12:14] LABS: BILIRUBIN,DIRECT 0.1 mg/dL (0.0-0.2); BILIRUBIN,TOTAL 0.5 mg/dL (0.2-1.0); TOTAL PROTEIN, SERUM 8.2 g/dL (6.4-8.2)
[2020-05-22 12:21] LABS: ETHANOL < 3 MG/DL (0-0)
[2020-05-22] MEDS ORDERED: HYDROMORPHONE 1 MG/1 ML DISP.SYRIN IV ONE ×3 (12:30→20:00)
[2020-05-22] MEDS ORDERED: INSULIN REGULAR, HUMAN 300 UNIT/3 ML VIAL SQ ONE (12:30)
[2020-05-22] MEDS ORDERED: HYDROMORPHONE 1 MG/1 ML DISP.SYRIN ONE ×3 (12:41→20:13)
[2020-05-22] MEDS ORDERED: INSULIN REGULAR, HUMAN 300 UNIT/3 ML VIAL ONE (12:43)
--- NOTE | 2020-05-22 12:50 | NUR ---
c/o abdominal pain 02/15 dr. pasquale adam order diludid 1mg ivp given and bs 398mg/ld criticale dr. pasquale adam 15 unite humulin regrale insulin given
--- NOTE | 2020-05-22 13:25 | NUR ---
jamilid nasla swabe done and sent to lab plan to transfer pt to [facility] PT AWRE AND SIGN the consent for transfer
--- NOTE | 2020-05-22 13:36 | NUR ---
abdominale us done at bed side
[2020-05-22 13:50] LABS: BACTERIA,URINE NONE SEEN /HPF (NONE SEEN); RBC,URINE 0-3 /HPF (0-3); SQUAMOUS EPITHELIAL CELL,UR FEW /HPF (NONE SEEN); WBC,URINE 0-3 /HPF (0-3)
--- NOTE | 2020-05-22 16:40 | NUR ---
LACTETE 2.5 NOTEFY AND aware oder was given reapeat lactete and blood culure x 2 blood drow by lab
[2020-05-22] MEDS ORDERED: PIPERACILLIN SODIUM/TAZOBACTAM 3.375 G in IV DEXTROSE 5% 50 ML IV ONE (16:45)
[2020-05-22] MEDS ORDERED: PIPERACILLIN/TAZOBACTAM/D5W 50 ML IV ONE (17:12)
--- NOTE | 2020-05-22 17:30 | NUR ---
ZOSYN 3.375 GM IVPB STERTED AFTER BLOOD CULTURE BLOOD DROW
--- NOTE | 2020-05-22 17:35 | NUR ---
PT TRANSFER TO [facility] ACCEPTING MD DR. GALARZA ROOM 205 HAND OFF TO MJ DOWNING ANSWER ALL question
--- NOTE | 2020-05-22 17:50 | NUR ---
Gave pt's father d/c instructions, verbalized understanding.
--- NOTE | 2020-05-22 19:10 | NUR ---
hand off ONEIL ROSALES.KATHY HALEY
--- NOTE | 2020-05-22 19:19 | NUR ---
Patient noted resting in bed at this time
--- NOTE | 2020-05-22 19:54 | NUR ---
[phone], states picking table worker time is 25 minutes
--- NOTE | 2020-05-22 20:50 | NUR ---
Patient Tranfers to outside Facility: [facility] Physician:Ananda Took all belongings, all need met, no signs of acute distress noted, batch plant supervisor by [employer] Octavio
== END 2020-05-22 20:50 | disposition short-term general hospital (02) ==
LOC: ER 10:25
DX: K85.90 Acute pancreatitis without necrosis or infection, unspecified (principal); E11.65 Type 2 diabetes mellitus with hyperglycemia; Z79.4 Long term (current) use of insulin; E78.5 Hyperlipidemia, unspecified; E78.1 Pure hyperglyceridemia; E66.9 Obesity, unspecified; Z68.36 Body mass index [BMI] 36.0-36.9, adult; Z20.828 Contact with and (suspected) exposure to other viral communicable diseases
CPT/HCPCS: 36415; 76705; 80048; 80061; 80076; 80307; 80320; 81001; 82009; 82962 ×3; 83605 ×2; 83690; 85025; 87040 ×2; 87426; 96361; 96365; 96372; 96375; 96376; 99285; J1170 ×3; J1815; J2270; J2405 ×2; J2543; A4663; G0480; J7030

== ENCOUNTER 2020-08-31 16:35 | Emergency (ER) | payer OTHER ==
[~2020-08-31] VITALS: Ht 188 cm; Wt 129.3 kg
[~2020-08-31 16:35] MED LIST changes: -GEMF600T5 PO; +GEMF600T90 PO
[2020-08-31] MEDS ORDERED: IV NORMAL SALINE 1000 ML BAG IV ONE (17:00)
[2020-08-31] MEDS ORDERED: KETOROLAC TROMETHAMINE 15 MG INJ IVP ONE ×2 (17:00→18:30)
[2020-08-31] MEDS ORDERED: KETOROLAC TROMETHAMINE 15 MG INJ ONE ×2 (17:08→18:52)
[2020-08-31 17:26] LABS: EOSINOPHILS # (AUTO) 0.1 K/uL (0.0-0.7); WHITE BLOOD COUNT (AUTO) 6.7 K/uL (3.6-10.2)
[2020-08-31 17:28] LABS: BASOPHILS % (AUTO) 0.5 % (0.0-2.0); EOSINOPHILS % (AUTO) 1.4 % (0.0-7.0); HEMATOCRIT 39.8 % (36.7-47.1); LYMPHOCYTES # (AUTO) 2.6 K/uL (20.0-40.0); LYMPHOCYTES % (AUTO) 39.1 % (20.5-51.5); MONOCYTES # (AUTO) 0.4 K/uL (2.0-10.0); MONOCYTES % (AUTO) 5.8 % (0.0-11.0); NEUTROPHILS # (AUTO) 3.6 K/uL (1.8-8.9); NEUTROPHILS % (AUTO) 53.2 % (38.5-71.5); PLATELET COUNT (AUTO) 263 K/uL (152-348)
[2020-08-31 17:40] LABS: ACETAMINOPHEN < 2.0 ug/mL (10-30)
[2020-08-31 18:26] LABS: ETHANOL < 3 MG/DL (0-0)
[2020-08-31 18:28] LABS: LIPASE 152 U/L (73-393)
[2020-08-31 18:29] LABS: *BILIRUBIN,URIN NEGATIVE (NEGATIVE); *BLOOD, URINE NEGATIVE (NEGATIVE); *CLARITY,URINE CLEAR (CLEAR); *COLOR,URINE YELLOW (YELLOW); *KETONES,URINE NEGATIVE (NEGATIVE); *UROBILINOGEN,URINE 0.2 E.U./dl (NORMAL); LEUKOCYTE ESTERASE ,URINE NEGATIVE (NEGATIVE); NITRITE, URINE NEGATIVE (NEGATIVE); UGLUCOSE 1+ (NEGATIVE)
[2020-08-31 18:30] LABS: BILIRUBIN,DIRECT 0.1 mg/dL (0.0-0.2); BILIRUBIN,TOTAL 0.3 mg/dL (0.2-1.0); CREATININE 0.9 mg/dL (0.6-1.3); POTASSIUM 3.9 mmol/L (3.5-5.1); TOTAL PROTEIN, SERUM 8.1 g/dL (6.4-8.2)
[2020-08-31 18:39] LABS: MEAN CORPUSCULAR HGB CONC 35 g/dL (32.5-36.3)
[2020-08-31 18:40] LABS: *AMPHETAMINE, URINE NEGATIVE (NEGATIVE); *CANNABINOID, URINE NEGATIVE (NEGATIVE); *COCCAINE, URINE NEGATIVE (NEGATIVE); *OPIATE, URINE NEGATIVE (NEGATIVE); *PHENCYCLIDINE SCREEN,URINE NEGATIVE (NEGATIVE)
[2020-08-31 19:51] LABS: RBC,URINE 0-3 /HPF (0-3)
[2020-08-31 19:52] LABS: BACTERIA,URINE FEW /HPF (NONE SEEN); SQUAMOUS EPITHELIAL CELL,UR FEW /HPF (NONE SEEN); URINE AMORPHOUS URATE MANY /HPF
--- NOTE | 2020-08-31 20:42 | NUR ---
DR PRINCE AT BEDSIDE SPOKE WITH PATIENT MADE PATIENT AWARE UNABLE TO PERFORM CT TODAY WILL NEED TO BE TRANSFERRED AT THIS TIME FOR TEST. PATIENT REFUSED TO BE TRANSFERRED WILL BE DC TO FOLLOW UP.
--- NOTE | 2020-08-31 20:54 | NUR ---
Patient discharged to home in stable condition. Written and verbal after care instructions given. Patient verbalizes understanding of instructions. Stressed follow up or return to ER for worsening s/s.
[2020-08-31 20:56] VITALS: BP 125/77
== END 2020-08-31 21:00 | disposition home or self-care (01) ==
LOC: ER 16:36
DX: H66.92 Otitis media, unspecified, left ear (principal); R10.13 Epigastric pain; E11.65 Type 2 diabetes mellitus with hyperglycemia; Z79.899 Other long term (current) drug therapy; E78.1 Pure hyperglyceridemia; E66.9 Obesity, unspecified; Z68.36 Body mass index [BMI] 36.0-36.9, adult; R00.0 Tachycardia, unspecified; F17.200 Nicotine dependence, unspecified, uncomplicated; Z87.440 Personal history of urinary (tract) infections
CPT/HCPCS: 36415; 71045; 80048; 80076; 80299; 80307; 80320; 81001; 82962; 83605; 83690; 84145; 85025; 85730; 87040 ×2; 87086; 93005; 96361; 96374; 96376; 99285; J1885 ×2; A4663; G0480; J7030

== ENCOUNTER 2020-09-20 22:55 | Emergency (ER) | payer OTHER ==
[~2020-09-20] VITALS: Ht 185.4 cm; Wt 127.0 kg
[2020-09-20] MEDS ORDERED: IV NORMAL SALINE 1000 ML BAG IV ONE (23:30)
[2020-09-20] MEDS ORDERED: HYDROMORPHONE 1 MG/1 ML DISP.SYRIN IV ONE (23:30)
[2020-09-20] MEDS ORDERED: ONDANSETRON 4 MG/2 ML VIAL IV ONE (23:30)
[2020-09-20] MEDS ORDERED: HYDROMORPHONE 2 MG/1 ML DISP.SYRIN ONE (23:49)
[2020-09-20] MEDS ORDERED: ONDANSETRON 4 MG/2 ML VIAL ONE (23:50)
[2020-09-20 23:51] LABS: BASOPHILS % (AUTO) 0.3 % (0.0-2.0); EOSINOPHILS # (AUTO) 0.2 K/uL (0.0-0.7); EOSINOPHILS % (AUTO) 1.5 % (0.0-7.0); HEMATOCRIT 31.4 % (36.7-47.1); HEMOGLOBIN 10.9 g/dL (12.5-16.3); LYMPHOCYTES # (AUTO) 1.4 K/uL (20.0-40.0); LYMPHOCYTES % (AUTO) 13.4 % (20.5-51.5); MEAN CORPUSCULAR HEMOGLOBIN 29.4 uug (23.8-33.4); MEAN CORPUSCULAR HGB CONC 35 g/dL (32.5-36.3); MEAN CORPUSCULAR VOLUME 84.6 fL (73.0-96.2); MONOCYTES # (AUTO) 0.8 K/uL (2.0-10.0); MONOCYTES % (AUTO) 7.3 % (0.0-11.0); NEUTROPHILS # (AUTO) 8.1 K/uL (1.8-8.9); NEUTROPHILS % (AUTO) 77.5 % (38.5-71.5); PLATELET COUNT (AUTO) 377 K/uL (152-348); RED BLOOD CELL COUNT(AUTO) 3.71 MIL/uL (4.06-5.63); WHITE BLOOD COUNT (AUTO) 10.5 K/uL (3.6-10.2)
[2020-09-20 23:53] LABS: CREATININE 0.9 mg/dL (0.6-1.3); POTASSIUM 4.3 mmol/L (3.5-5.1)
[2020-09-20 23:58] LABS: BILIRUBIN,DIRECT 1.3 mg/dL (0.0-0.2); BILIRUBIN,TOTAL 1.9 mg/dL (0.2-1.0); TOTAL PROTEIN, SERUM 8.4 g/dL (6.4-8.2)
--- NOTE | 2020-09-20 23:58 | NUR ---
Patient out of unit for ct scan via gurny.
--- NOTE | 2020-09-21 00:12 | NUR ---
Patient back from ct scan with no distress noted.
[2020-09-21] MEDS ORDERED: INSULIN REGULAR, HUMAN 300 UNIT/3 ML VIAL IV ONE (00:15)
[2020-09-21] MEDS ORDERED: INSULIN REGULAR, HUMAN 300 UNIT/3 ML VIAL ONE (00:22)
--- NOTE | 2020-09-21 00:35 | NUR ---
Patient resting on bed, eyes closed. No acute distress is noted at this time.
--- NOTE | 2020-09-21 00:56 | NUR ---
Patient c/o of 10/10 pain. MD Huber notified. New orders being placed soon.
[2020-09-21] MEDS: ONDANSETRON 4 MG/2 ML VIAL IV ONE ×2 (01:00→01:05)
[2020-09-21] MEDS: HYDROMORPHONE 1 MG/1 ML DISP.SYRIN IV ONE ×2 (01:00→01:10)
[2020-09-21] MEDS ORDERED: HYDROMORPHONE 1 MG/1 ML DISP.SYRIN ONE (01:07)
[2020-09-21] MEDS ORDERED: ONDANSETRON 4 MG/2 ML VIAL ONE (01:07)
--- NOTE | 2020-09-21 01:28 | NUR ---
Blood sugar of patient retaken: 192.
[2020-09-21 01:31] LABS: *BILIRUBIN,URIN 2+ (NEGATIVE); *CLARITY,URINE CLEAR (CLEAR); *COLOR,URINE AMBER (YELLOW); *KETONES,URINE 2+ (NEGATIVE); LEUKOCYTE ESTERASE ,URINE NEGATIVE (NEGATIVE); NITRITE, URINE NEGATIVE (NEGATIVE); UGLUCOSE 1+ (NEGATIVE)
--- NOTE | 2020-09-21 01:50 | NUR ---
Patient c/o 03/18 pain. MD Huber notified. Advised no additional pain medication at this time as patient has all ready received two doses of Dilaudid.
--- NOTE | 2020-09-21 02:00 | NUR ---
[facility] called, stated to FAX covid results to [facility] .
[2020-09-21 02:05] LABS: *BLOOD, URINE TRACE (NEGATIVE)
--- NOTE | 2020-09-21 02:08 | NUR ---
COVID results faxed to [facility], pending call back for further information on transfer.
[2020-09-21 02:09] LABS: BACTERIA,URINE NONE SEEN /HPF (NONE SEEN); RBC,URINE 0-3 /HPF (0-3); SQUAMOUS EPITHELIAL CELL,UR NONE SEEN /HPF (NONE SEEN); URIC ACID CRYSTALS,URINE FEW /HPF (NONE SEEN); WBC,URINE 0-3 /HPF (0-3)
--- NOTE | 2020-09-21 03:36 | NUR ---
[facility] group called requesting to speak with Dr. Huber. Call was forwarded to Dr. Huber.
--- NOTE | 2020-09-21 04:00 | NUR ---
manager occupational time is at 05:00am by [facility]. He will be going to [facility]. Room is 317A. The nurse will be Remy. Report will be given to .
--- NOTE | 2020-09-21 04:25 | NUR ---
[facility] called to inform TERA Alberto that the patient signed AMA paperwork stating he refuses to go to that hospital.
[2020-09-21 04:55] VITALS: BP 125/74
--- NOTE | 2020-09-21 04:55 | NUR ---
Patient does not wish to proceed with medical care recommended by Dr. Aneesh Huber. Patient given information related to possible complications, up to and including , which could occur as a result of leaving the hospital at this time. Patient verbalizes understanding of risks involved due to leaving against medical advice. Patient has signed AMA form. Patient ambulates with steady gait, left with all personal belongings.
== END 2020-09-21 04:55 | disposition left against medical advice (07) ==
LOC: ER 22:58
DX: K85.90 Acute pancreatitis without necrosis or infection, unspecified (principal); E11.65 Type 2 diabetes mellitus with hyperglycemia; Z79.4 Long term (current) use of insulin; E66.9 Obesity, unspecified; Z68.36 Body mass index [BMI] 36.0-36.9, adult; B00.1 Herpesviral vesicular dermatitis; F17.200 Nicotine dependence, unspecified, uncomplicated; E78.1 Pure hyperglyceridemia; Z79.899 Other long term (current) drug therapy; R50.9 Fever, unspecified; Z20.822 Contact with and (suspected) exposure to COVID-19
CPT/HCPCS: 36415; 71045; 74176; 80048; 80076; 81001; 82962; 83690; 85025; 87426; 96374; 96375 ×2; 96376; 99285; J1170 ×2; J1815; J2405 ×2; A4663; J7030

== ENCOUNTER 2021-02-20 03:49 | Emergency (ER) | payer OTHER ==
[~2021-02-20] VITALS: Ht 188 cm; Wt 129.3 kg
[2021-02-20] MEDS: IV NORMAL SALINE 1000 ML BAG IV ONE ×2 (04:15→08:28)
[2021-02-20] MEDS: ONDANSETRON 4 MG/2 ML VIAL IV ONE ×2 (04:15→08:17)
[2021-02-20] MEDS: KETOROLAC TROMETHAMINE 30 MG INJ IVP ONE (04:15)
[2021-02-20] MEDS ORDERED: KETOROLAC TROMETHAMINE 30 MG INJ ONE (05:08)
[2021-02-20] MEDS ORDERED: ONDANSETRON 4 MG/2 ML VIAL ONE ×2 (05:08→08:22)
[2021-02-20] MEDS: HYDROMORPHONE 1 MG/1 ML DISP.SYRIN IV ONE ×2 (05:15→08:16)
[2021-02-20 05:23] LABS: ALANINE AMINOTRANSFERASE < 6 U/L (16-63); ALKALINE PHOSPHATASE 88 U/L (50-136); ASPARTATE AMINOTRANSFERASE < 5 U/L (15-37); BILIRUBIN,DIRECT < 0.1 mg/dL (0.0-0.2); BILIRUBIN,TOTAL 0.6 mg/dL (0.2-1.0); CARBON DIOXIDE 23 mmol/L (21-32); CHLORIDE 93 mmol/L (98-107); CREATININE 0.9 mg/dL (0.6-1.3); LIPASE 334 U/L (73-393); POTASSIUM 3.9 mmol/L (3.5-5.1); TOTAL PROTEIN, SERUM 8.1 g/dL (6.4-8.2); UREA NITROGEN, BLOOD 11 mg/dL (7-18)
[2021-02-20 05:27] LABS: HEMATOCRIT 43.9 % (36.7-47.1); MEAN CORPUSCULAR HEMOGLOBIN 29.8 uug (23.8-33.4); MEAN CORPUSCULAR VOLUME 84.6 fL (73.0-96.2); PLATELET COUNT (AUTO) 237 K/uL (152-348)
[2021-02-20] MEDS ORDERED: HYDROMORPHONE 1 MG/1 ML DISP.SYRIN ONE ×2 (05:27→08:22)
[2021-02-20 05:28] LABS: GLUCOSE 418 mg/dL (74-106)
[2021-02-20 05:59] LABS: ETHANOL < 3 MG/DL (0-0)
[2021-02-20 10:31] VITALS: BP 129/88
--- NOTE | 2021-03-10 09:15 | NUR ---
LATE ENTRY: 02/20/21 0822 Dilaudid 0.5mg IVP was ordered by ([facility]). Dilaudid 0.5mg IVP was administered by Dot Orellana RN and the remaining Dilaudid 0.5mg was wasted by TERA Chris as per hospital policy and witnessed by myself.
== END 2021-02-20 10:34 | disposition left against medical advice (07) ==
LOC: ER 03:53
DX: R10.12 Left upper quadrant pain (principal); F17.210 Nicotine dependence, cigarettes, uncomplicated; E78.1 Pure hyperglyceridemia; E11.65 Type 2 diabetes mellitus with hyperglycemia; Z79.4 Long term (current) use of insulin; E66.9 Obesity, unspecified; Z68.36 Body mass index [BMI] 36.0-36.9, adult; R00.0 Tachycardia, unspecified; Z20.822 Contact with and (suspected) exposure to COVID-19
CPT/HCPCS: 36415; 71045; 80048; 80076; 80320; 82962 ×2; 83690; 83880; 84484; 85025; 87426; 93005; 96361; 96374; 96375; 96376; 99285; 99406; J1170 ×2; J1885; J2405 ×2; 70030-TC; A4663; G0480; J7030

== ENCOUNTER 2021-09-01 16:25 | Emergency (ER) | payer OTHER ==
[~2021-09-01] VITALS: Ht 188 cm; Wt 133.4 kg
[2021-09-01] MEDS ORDERED: ONDANSETRON 4 MG/2 ML VIAL IV ONE (16:45)
[2021-09-01] MEDS ORDERED: MAG HYDROX/AL HYDROX/SIMETH 30 ML LIQUID UDC PO ONE (16:45)
[2021-09-01] MEDS ORDERED: LIDOCAINE VISCUS 2% 15 ML UDC MM ONE (16:45)
[2021-09-01] MEDS ORDERED: IV NORMAL SALINE 1000 ML BAG IV ONE ×2 (16:45)
[2021-09-01 16:58] LABS: HEMATOCRIT 40.7 % (36.7-47.1); PLATELET COUNT (AUTO) 244 K/uL (152-348)
[2021-09-01] MEDS ORDERED: ONDANSETRON 4 MG/2 ML VIAL ONE (17:05)
[2021-09-01] MEDS ORDERED: MAG HYDROX/AL HYDROX/SIMETH 30 ML LIQUID UDC ONE (17:05)
[2021-09-01] MEDS ORDERED: LIDOCAINE VISCUS 2% 15 ML UDC ONE (17:06)
[2021-09-01 17:11] LABS: *BILIRUBIN,URIN NEGATIVE (NEGATIVE); *BLOOD, URINE NEGATIVE (NEGATIVE); *CLARITY,URINE CLEAR (CLEAR); *COLOR,URINE YELLOW (YELLOW); *KETONES,URINE NEGATIVE (NEGATIVE); *UROBILINOGEN,URINE 0.2 E.U./dl (NORMAL); LEUKOCYTE ESTERASE ,URINE NEGATIVE (NEGATIVE); NITRITE, URINE NEGATIVE (NEGATIVE); PH,URINE 5.5 (5.0-8.0)
[2021-09-01 17:12] LABS: UGLUCOSE 2+ (NEGATIVE)
[2021-09-01] MEDS ORDERED: ICOS1CAP PO (17:18)
[2021-09-01] MEDS ORDERED: AMYL1CAP58 PO (17:18)
[2021-09-01] MEDS ORDERED: INSU100I26 SQ (17:18)
[2021-09-01 17:44] LABS: MEAN CORPUSCULAR HEMOGLOBIN 29.4 uug (23.8-33.4)
[2021-09-01 17:52] LABS: BILIRUBIN,TOTAL 0.6 mg/dL (0.2-1.0); CARBON DIOXIDE 27 mmol/L (21-32); CHLORIDE 93 mmol/L (98-107); CREATININE 1.2 mg/dL (0.6-1.3); POTASSIUM 4.6 mmol/L (3.5-5.1); TOTAL PROTEIN, SERUM 8.1 g/dL (6.4-8.2); UREA NITROGEN, BLOOD 10 mg/dL (7-18)
[2021-09-01 17:54] LABS: GLUCOSE 504 mg/dL (74-106)
[2021-09-01 18:05] LABS: ASPARTATE AMINOTRANSFERASE 7 U/L (15-37)
[2021-09-01 18:07] LABS: ALANINE AMINOTRANSFERASE 6 U/L (16-63)
[2021-09-01 18:08] LABS: ALKALINE PHOSPHATASE 110 U/L (50-136)
[2021-09-01] MEDS ORDERED: INSULIN REGULAR, HUMAN 300 UNIT/3 ML VIAL SQ ONE (18:15)
[2021-09-01] MEDS ORDERED: INSULIN REGULAR, HUMAN 300 UNIT/3 ML VIAL ONE (18:15)
--- NOTE | 2021-09-01 18:32 | NUR ---
Second liter of fluid complete. Pt in no acute distress at this time. Pt is lying down without grimace or guarding.
--- NOTE | 2021-09-01 18:44 | NUR ---
Provider spoke with pt regarding D/C instructions and information.
--- NOTE | 2021-09-01 18:46 | NUR ---
Saline lock D/C, clear and intact. Patient discharged to home in stable condition. Written and verbal after care instructions given. Patient verbalizes understanding of instructions. Stressed follow up or return to ER for worsening s/s.
--- NOTE | 2021-09-01 18:50 | NUR ---
Pt refused to take after care summary and sign D/C summary
[2021-09-01 18:51] VITALS: BP 152/92
== END 2021-09-01 18:52 | disposition home or self-care (01) ==
LOC: ER 17:53
DX: R10.12 Left upper quadrant pain (principal); E11.65 Type 2 diabetes mellitus with hyperglycemia; E78.1 Pure hyperglyceridemia; F17.210 Nicotine dependence, cigarettes, uncomplicated; Z79.4 Long term (current) use of insulin; Z79.899 Other long term (current) drug therapy
CPT/HCPCS: 36415; 80053; 81003; 82009; 83690; 85025; 93005; 96361; 96372; 96374; 99284; J1815; J2405; A4663; J7030

== ENCOUNTER 2022-05-11 21:56 | Emergency (ER) | payer OTHER ==
[~2022-05-11] VITALS: Ht 182.9 cm; Wt 129.7 kg
[~2022-05-11 21:56] MED LIST changes: +AMYL1CAP58 PO; -HYDR-4384 PO; +ICOS1CAP PO; +INSU100I26 SQ; -INSU100V39 SQ
--- NOTE | 2022-05-12 | NUR ---
Dr. Alonzo at bedside. MSE in progress.
[2022-05-12] MEDS ORDERED: PROCHLORPERAZINE EDISYLATE 10 MG/2 ML VIAL IV ONE (00:30)
[2022-05-12] MEDS ORDERED: HYDROMORPHONE 1 MG/1 ML DISP.SYRIN IV ONE ×2 (00:30→01:45)
[2022-05-12] MEDS ORDERED: IV NORMAL SALINE 1000 ML BAG IV ONE (00:30)
[2022-05-12] MEDS ORDERED: IV NS 1000 ML 1,000 ML IV ONE ×2 (00:30→04:15)
[2022-05-12] MEDS ORDERED: HYDROMORPHONE 2 MG/1 ML DISP.SYRIN ONE ×2 (00:32→01:29)
[2022-05-12] MEDS ORDERED: PROCHLORPERAZINE EDISYLATE 10 MG/2 ML VIAL ONE (00:32)
[2022-05-12 00:49] LABS: HEMATOCRIT 38.9 % (36.7-47.1); MEAN CORPUSCULAR HEMOGLOBIN 32.6 uug (23.8-33.4); MEAN CORPUSCULAR VOLUME 82.5 fL (73.0-96.2); PLATELET COUNT (AUTO) 242 K/uL (152-348)
[2022-05-12 01:18] LABS: BILIRUBIN,DIRECT 0.1 mg/dL (0.0-0.2)
[2022-05-12 01:26] LABS: *BILIRUBIN,URIN NEGATIVE (NEGATIVE); *BLOOD, URINE NEGATIVE (NEGATIVE); *CLARITY,URINE CLEAR (CLEAR); *COLOR,URINE YELLOW (YELLOW); *KETONES,URINE NEGATIVE (NEGATIVE); *UROBILINOGEN,URINE 0.2 E.U./dl (NORMAL); LEUKOCYTE ESTERASE ,URINE NEGATIVE (NEGATIVE); NITRITE, URINE NEGATIVE (NEGATIVE); UGLUCOSE 2+ (NEGATIVE)
[2022-05-12 01:30] LABS: BACTERIA,URINE NONE SEEN /HPF (NONE SEEN); RBC,URINE 0-3 /HPF (0-3); SQUAMOUS EPITHELIAL CELL,UR FEW /HPF (NONE SEEN); WBC,URINE 0-3 /HPF (0-3)
[2022-05-12 01:39] LABS: BILIRUBIN,TOTAL 0.8 mg/dL (0.2-1.0); CREATININE 0.8 mg/dL (0.6-1.3); POTASSIUM 3.6 mmol/L (3.5-5.1); TOTAL PROTEIN, SERUM 7.3 g/dL (6.4-8.2)
[2022-05-12] MEDS ORDERED: diphenhydrAMINE 50 MG/1 ML VIAL IV ONE (04:30)
--- NOTE | 2022-05-12 05:50 | NUR ---
Patient does not wish to proceed with medical care recommended by Dr. Alonzo. Patient given information related to possible complications, up to and including , which could occur as a result of leaving the hospital at this time. Patient verbalizes understanding of risks involved due to leaving against medical advice. Patient has signed AMA form. NAD noted. Ambulatory with a steady gait. All belongings with patient. No AMS. A/O x4.
[2022-05-12 05:55] VITALS: BP 139/88
== END 2022-05-12 05:50 | disposition left against medical advice (07) ==
LOC: ER 21:56
DX: K85.90 Acute pancreatitis without necrosis or infection, unspecified (principal); E11.65 Type 2 diabetes mellitus with hyperglycemia; Z79.4 Long term (current) use of insulin; E78.1 Pure hyperglyceridemia; E66.9 Obesity, unspecified; Z68.38 Body mass index [BMI] 38.0-38.9, adult; E83.51 Hypocalcemia; Z20.822 Contact with and (suspected) exposure to COVID-19
CPT/HCPCS: 99285; 96374; 96361; 96375; 87426; 80076; 80048; 81001; 83690; 83735; 85025; 36415; 93005; 96376; 83605; 84681; J0780; J1170 ×2; J7040 ×2

== ENCOUNTER 2022-05-24 18:44 | Emergency (ER) | payer OTHER ==
[~2022-05-24] VITALS: Ht 188 cm; Wt 129.7 kg
[2022-05-24] MEDS: MAGNESIUM SULFATE/D5W 100 ML IV SCH (02:00)
[2022-05-24] MEDS ORDERED: IV NORMAL SALINE 1000 ML BAG IV ONE (19:00)
[2022-05-24] MEDS ORDERED: HYDROMORPHONE 1 MG/1 ML DISP.SYRIN IV ONE ×2 (19:00→20:00)
[2022-05-24] MEDS ORDERED: HYDROMORPHONE 2 MG/1 ML DISP.SYRIN ONE ×2 (19:30→20:03)
[2022-05-24] MEDS ORDERED: IV NS 1000 ML 1,000 ML IV ONE ×2 (19:45→21:00)
[2022-05-24] MEDS ORDERED: PROCHLORPERAZINE EDISYLATE 10 MG/2 ML VIAL IV ONE (20:00)
[2022-05-24] MEDS ORDERED: PROCHLORPERAZINE EDISYLATE 10 MG/2 ML VIAL ONE (20:02)
[2022-05-24 20:04] LABS: MEAN CORPUSCULAR HEMOGLOBIN 28.6 uug (23.8-33.4); MEAN CORPUSCULAR VOLUME 84.1 fL (73.0-96.2)
[2022-05-24 20:34] LABS: HEMATOCRIT 41.3 % (36.7-47.1)
[2022-05-24 20:35] LABS: PLATELET COUNT (AUTO) 274 K/uL (152-348)
[2022-05-24 21:27] LABS: *BILIRUBIN,URIN NEGATIVE (NEGATIVE); *BLOOD, URINE NEGATIVE (NEGATIVE); *CLARITY,URINE CLEAR (CLEAR); *COLOR,URINE YELLOW (YELLOW); *KETONES,URINE NEGATIVE (NEGATIVE); *UROBILINOGEN,URINE 0.2 E.U./dl (NORMAL); LEUKOCYTE ESTERASE ,URINE NEGATIVE (NEGATIVE); NITRITE, URINE NEGATIVE (NEGATIVE); PH,URINE 5.5 (5.0-8.0); UGLUCOSE 2+ (NEGATIVE)
[2022-05-24 21:37] LABS: CARBON DIOXIDE 23 mmol/L (21-32); CHLORIDE 92 mmol/L (98-107); GLUCOSE 440 mg/dL (74-106); UREA NITROGEN, BLOOD 14 mg/dL (7-18)
[2022-05-24 21:38] LABS: ALKALINE PHOSPHATASE 92 U/L (50-136); BILIRUBIN,DIRECT < 0.1 mg/dL (0.0-0.2); BILIRUBIN,TOTAL 0.8 mg/dL (0.2-1.0)
[2022-05-24 22:07] LABS: LIPASE 157 U/L (73-393)
[2022-05-24 22:10] LABS: CREATININE 0.8 mg/dL (0.6-1.3)
[2022-05-24 22:14] LABS: ALANINE AMINOTRANSFERASE 35 U/L (16-63); ASPARTATE AMINOTRANSFERASE 26 U/L (15-37); TOTAL PROTEIN, SERUM 6.3 g/dL (6.4-8.2)
[2022-05-24] MEDS ORDERED: CALCIUM GLUCONATE IV 1 GM in IV NORMAL SALINE 100 ML IV ONE (22:45)
[2022-05-24] MEDS ORDERED: LACTULOSE 20 G/30 ML LIQUID UDC PO ONE (22:45)
[2022-05-24 22:56] LABS: BACTERIA,URINE NONE SEEN /HPF (NONE SEEN); RBC,URINE NONE SEEN /HPF (0-3); WBC,URINE NONE SEEN /HPF (0-3)
[2022-05-25] MEDS: MAGNESIUM SULFATE/D5W 100 ML IV SCH (02:00)
[2022-05-25] MEDS ORDERED: PROC10TA29 PO (02:28)
[2022-05-25] MEDS ORDERED: OXYC-128 PO (02:28)
[2022-05-25] MEDS ORDERED: CALCIUM GLUCONATE 1 GM/10 ML VIAL IV ONE (02:40)
[2022-05-25] MEDS ORDERED: MAGNESIUM SULFATE/D5W 100 ML ONE (02:41)
[2022-05-25] MEDS ORDERED: LACTULOSE 20 G/30 ML LIQUID UDC ONE (02:41)
[2022-05-25 03:04] VITALS: BP 145/74
== END 2022-05-25 03:11 | disposition home or self-care (01) ==
LOC: ER 18:46
DX: R10.12 Left upper quadrant pain (principal); E78.1 Pure hyperglyceridemia; E83.51 Hypocalcemia; R00.0 Tachycardia, unspecified; E11.65 Type 2 diabetes mellitus with hyperglycemia; Z79.4 Long term (current) use of insulin; E66.9 Obesity, unspecified; Z68.36 Body mass index [BMI] 36.0-36.9, adult; Z20.822 Contact with and (suspected) exposure to COVID-19
CPT/HCPCS: 99285; 96374; 76705; 96361; 96375 ×2; 87426; 80061; 80076; 80048; 81001; 82140; 83690; 83735; 85025; 36415; 93005; 96376; 83605 ×2; J0780; J1170 ×2; J7040 ×3; J0610; J3475; A4663

== ENCOUNTER 2022-10-01 01:25 | Emergency (ER) | payer OTHER ==
[~2022-10-01] VITALS: Ht 177.8 cm; Wt 136.1 kg
[~2022-10-01 01:25] MED LIST changes: +OXYC-128 PO; +PROC10TA29 PO
[2022-10-01] MEDS ORDERED: PROCHLORPERAZINE EDISYLATE 10 MG/2 ML VIAL IV ONE (02:00)
[2022-10-01] MEDS ORDERED: HYDROMORPHONE 1 MG/1 ML DISP.SYRIN IV ONE (02:00)
[2022-10-01] MEDS ORDERED: IV NORMAL SALINE 1000 ML BAG IV ONE (02:00)
[2022-10-01 02:11] LABS: HEMATOCRIT 41.3 % (36.7-47.1); MEAN CORPUSCULAR HEMOGLOBIN 29.3 uug (23.8-33.4); MEAN CORPUSCULAR VOLUME 83.8 fL (73.0-96.2); PLATELET COUNT (AUTO) 209 K/uL (152-348)
[2022-10-01 02:49] LABS: BILIRUBIN,DIRECT 0.1 mg/dL (0.0-0.2); BILIRUBIN,TOTAL 0.6 mg/dL (0.2-1.0); CREATININE 0.8 mg/dL (0.6-1.3); POTASSIUM 4.1 mmol/L (3.5-5.1); TOTAL PROTEIN, SERUM 8.1 g/dL (6.4-8.2)
[2022-10-01] MEDS ORDERED: HYDROMORPHONE 2 MG/1 ML DISP.SYRIN ONE (03:19)
[2022-10-01] MEDS ORDERED: PROCHLORPERAZINE EDISYLATE 10 MG/2 ML VIAL ONE (03:19)
[2022-10-01 06:46] VITALS: BP 132/85
== END 2022-10-01 05:25 | disposition home or self-care (01) ==
LOC: ER 01:25
DX: R10.11 Right upper quadrant pain (principal); E78.1 Pure hyperglyceridemia; E11.65 Type 2 diabetes mellitus with hyperglycemia; F17.210 Nicotine dependence, cigarettes, uncomplicated; Z79.4 Long term (current) use of insulin; Z79.899 Other long term (current) drug therapy
CPT/HCPCS: 99285; 74176; 96374; 96361; 96375; 80061; 80076; 80048; 83690; 85025; 36415; 93005; 83605; J0780; J1170; J7040; A4663

== ENCOUNTER 2022-11-16 20:47 | Emergency (ER) | payer OTHER ==
[~2022-11-16] VITALS: Ht 188 cm; Wt 136.1 kg
[2022-11-16] MEDS ORDERED: METOPROLOL TARTRATE 50 MG TABLET PO ONE (21:15)
[2022-11-16] MEDS ORDERED: ASPIRIN 81 MG TAB.CHEW PO ONE (21:15)
[2022-11-16] MEDS ORDERED: NITROGLYCERIN OINT 1 GM PACKET TP ONE ×2 (21:15→22:10)
[2022-11-16 21:33] LABS: MEAN CORPUSCULAR HEMOGLOBIN 30.8 uug (23.8-33.4); MEAN CORPUSCULAR VOLUME 83.7 fL (73.0-96.2); PLATELET COUNT (AUTO) 247 K/uL (152-348)
[2022-11-16 21:52] LABS: CARBON DIOXIDE 24 mmol/L (21-32); CHLORIDE 95 mmol/L (98-107); POTASSIUM 3.5 mmol/L (3.5-5.1); UREA NITROGEN, BLOOD 10 mg/dL (7-18)
[2022-11-16 21:58] LABS: GLUCOSE 302 mg/dL (74-106)
[2022-11-16] MEDS ORDERED: ASPIRIN 81 MG TAB.CHEW ONE (22:10)
[2022-11-16] MEDS ORDERED: METOPROLOL TARTRATE 50 MG TABLET ONE (22:11)
[2022-11-16 22:27] LABS: *BILIRUBIN,URIN NEGATIVE (NEGATIVE); *BLOOD, URINE NEGATIVE (NEGATIVE); *CLARITY,URINE CLEAR (CLEAR); *COLOR,URINE YELLOW (YELLOW); *KETONES,URINE TRACE (NEGATIVE); *UROBILINOGEN,URINE 0.2 E.U./dl (NORMAL); LEUKOCYTE ESTERASE ,URINE NEGATIVE (NEGATIVE); NITRITE, URINE NEGATIVE (NEGATIVE); PH,URINE 5.5 (5.0-8.0); UGLUCOSE 2+ (NEGATIVE)
[2022-11-16 22:48] LABS: BACTERIA,URINE NONE SEEN /HPF (NONE SEEN); RBC,URINE NONE SEEN /HPF (0-3); WBC,URINE 0-3 /HPF (0-3)
[2022-11-16 22:49] LABS: SQUAMOUS EPITHELIAL CELL,UR FEW /HPF (NONE SEEN)
[2022-11-16 22:50] LABS: *AMPHETAMINE, URINE NEGATIVE (NEGATIVE); *CANNABINOID, URINE NEGATIVE (NEGATIVE); *COCCAINE, URINE NEGATIVE (NEGATIVE); *PHENCYCLIDINE SCREEN,URINE NEGATIVE (NEGATIVE)
[2022-11-16] MEDS ORDERED: OXYCODONE/APAP 5-325 MG TABLET PO ONE (23:15)
[2022-11-16] MEDS ORDERED: OXYCODONE/APAP 5-325 MG TABLET ONE (23:36)
--- NOTE | 2022-11-16 23:43 | NUR ---
Patient refused Percocet 5-325mg 2 tab PO. Patient requesting IV medication instead. Dr. Cheri matthews.
[2022-11-17] MEDS ORDERED: PROCHLORPERAZINE MALEATE 5 MG TABLET PO ONE (00:15)
[2022-11-17] MEDS ORDERED: HYDROMORPHONE 1 MG/1 ML DISP.SYRIN IM ONE (00:15)
[2022-11-17] MEDS ORDERED: PROCHLORPERAZINE MALEATE 5 MG TABLET ONE (00:26)
[2022-11-17] MEDS ORDERED: HYDROMORPHONE 2 MG/1 ML DISP.SYRIN ONE (00:26)
[2022-11-17] MEDS ORDERED: HYDROMORPHONE 1 MG/1 ML DISP.SYRIN ONE (00:26)
--- NOTE | 2022-11-17 01:06 | NUR ---
Patient sleeping comfortably in bed, no signs of distress.
[2022-11-17] MEDS ORDERED: BLOO-1730 MC (01:26)
[2022-11-17] MEDS ORDERED: HYDR-3980 PO (01:26)
[2022-11-17 02:06] VITALS: BP 115/85
== END 2022-11-17 02:07 | disposition home or self-care (01) ==
LOC: ER 20:47
DX: R07.89 Other chest pain (principal); E11.65 Type 2 diabetes mellitus with hyperglycemia; M25.572 Pain in left ankle and joints of left foot; F17.210 Nicotine dependence, cigarettes, uncomplicated; Z79.4 Long term (current) use of insulin; Z79.899 Other long term (current) drug therapy
CPT/HCPCS: 99285; 71045; 80048; 83690; 85025; 85379; 85730; 84484 ×2; 36415; 93005; 80307; 81001; 96372; J1170 ×2; J8499; A4663

== ENCOUNTER 2023-03-18 17:42 | Emergency (ER) | payer OTHER ==
[~2023-03-18] VITALS: Ht 188 cm; Wt 136.1 kg
[~2023-03-18 17:42] MED LIST changes: +BLOO-1730 MC; +HYDR-3980 PO
[2023-03-18] MEDS ORDERED: IV NORMAL SALINE 1000 ML BAG IV ONE ×2 (18:15→19:45)
[2023-03-18 18:27] LABS: BASOPHILS % (AUTO) 0.5 % (0.0-2.0); EOSINOPHILS # (AUTO) 0.1 K/uL (0.0-0.7); EOSINOPHILS % (AUTO) 1.3 % (0.0-7.0); HEMATOCRIT 38.6 % (36.7-47.1); HEMOGLOBIN 13.4 g/dL (12.5-16.3); LYMPHOCYTES # (AUTO) 1.5 K/uL (0.8-4.8); LYMPHOCYTES % (AUTO) 24.4 % (20.5-51.5); MEAN CORPUSCULAR HEMOGLOBIN 28.9 uug (23.8-33.4); MEAN CORPUSCULAR HGB CONC 35 g/dL (32.5-36.3); MEAN CORPUSCULAR VOLUME 83.6 fL (73.0-96.2); MONOCYTES # (AUTO) 0.4 K/uL (0.1-1.30); MONOCYTES % (AUTO) 6.8 % (0.0-11.0); PLATELET COUNT (AUTO) 213 K/uL (152-348); RED BLOOD CELL COUNT(AUTO) 4.61 MIL/uL (4.06-5.63); RED CELL DISTRIBUTION WIDTH 13.9 % (12.1-16.2)
[2023-03-18 18:50] LABS: DIFFERENTIAL COMMENT 1
[2023-03-18] MEDS ORDERED: INSU100V7 SQ ×2 (18:51)
[2023-03-18 18:55] LABS: CALCIUM 9.2 mg/dL (8.5-10.1); CARBON DIOXIDE 25 mmol/L (21-32); CHLORIDE 98 mmol/L (98-107); GLUCOSE 365 mg/dL (74-106); POTASSIUM 4.5 mmol/L (3.5-5.1); SODIUM SERUM 135 mmol/L (136-145); UREA NITROGEN, BLOOD 9 mg/dL (7-18)
[2023-03-18 19:03] LABS: ALANINE AMINOTRANSFERASE 34 U/L (16-63); ALBUMIN 3.3 g/dL (3.4-5.0); ALKALINE PHOSPHATASE 70 U/L (50-136); ASPARTATE AMINOTRANSFERASE 34 U/L (15-37); BILIRUBIN,DIRECT 0.1 mg/dL (0.0-0.2); BILIRUBIN,TOTAL 0.5 mg/dL (0.2-1.0); LIPASE 183 U/L (73-393); TOTAL PROTEIN, SERUM 7.3 g/dL (6.4-8.2)
[2023-03-18 19:06] LABS: NT-PRO BNP 12 pg/mL (0-125)
[2023-03-18 19:32] LABS: PHOSPHOROUS 3.7 mg/dL (2.5-4.9)
[2023-03-18 19:40] LABS: ACETONE, SERUM TRACE (NEGATIVE)
[2023-03-18] MEDS ORDERED: METOCLOPRAMIDE HCL 10 MG/2 ML VIAL IV ONE (19:45)
[2023-03-18] MEDS ORDERED: FAMOTIDINE. 20 MG/2 ML VIAL IV ONE ×2 (19:45→19:53)
[2023-03-18] MEDS ORDERED: KETOROLAC TROMETHAMINE 30 MG INJ IVP ONE (19:45)
[2023-03-18] MEDS ORDERED: KETOROLAC TROMETHAMINE 30 MG INJ ONE (19:52)
[2023-03-18] MEDS ORDERED: METOCLOPRAMIDE HCL 10 MG/2 ML VIAL ONE (19:53)
[2023-03-18 20:25] VITALS: BP 148/95; O2SAT 99
== END 2023-03-18 20:25 | disposition left against medical advice (07) ==
LOC: ER 17:43
DX: E11.65 Type 2 diabetes mellitus with hyperglycemia (principal); R10.13 Epigastric pain; R11.0 Nausea; R00.2 Palpitations; I10 Essential (primary) hypertension; F17.210 Nicotine dependence, cigarettes, uncomplicated; Z79.4 Long term (current) use of insulin; Z79.899 Other long term (current) drug therapy
CPT/HCPCS: 99285; 96374; 71045; 96375; 96361; 80076; 80048; 82009; 82962; 83880; 83690; 83735; 84100; 85025; 85730; 84484; 93005; J3490; J1885; J2765; J7040; A4663